=== PATIENT | female | born 1960 | race Caucasian/White ===

== ENCOUNTER 2023-08-20 08:38 | Outpatient (OUT) | payer MEDICARE, SELFPAY ==
[2023-08-20 09:42] LABS: Basophils Absolute Auto 0.1 10^3/uL (0.0-0.1); Basophils Percent Auto 0.9 % (0.2-2.0); Eosinophils Absolute Auto 0.2 10^3/uL (0.0-0.7); Eosinophils Percent Auto 2.4 % (0.9-7.0); Hematocrit 39.7 % (36.0-48.0); Hemoglobin 12.8 g/dL (12.0-16.0); Immature Granulocytes Abs Auto 0.02 10^3/uL (0.00-0.03); Immature Granulocytes Pct Auto 0.3 % (0.0-0.5); Lymphocytes Percent Auto 30.3 % (20.5-60.0); Mean Corpuscular HGB Conc 32.2 g/dL (29.9-35.2); Monocytes Absolute Auto 0.6 10^3/uL (0.3-0.8); Monocytes Percent Auto 9.1 % (1.7-12.0); Neutrophils Absolute Auto 3.8 10^3/uL (1.4-6.5); Platelet Count 428 10^3/uL (150-450); Red Blood Count 4.41 10^6/uL (4.20-5.40); Red Cell Distribution Width 13.1 % (11.0-15.0); White Blood Count 6.7 10^3/uL (4.0-11.0)
[2023-08-20 09:45] LABS: Bilirubin Urine NEGATIVE (NEGATIVE); Blood Urine TRACE-I (NEGATIVE); Clarity Urine CLEAR (CLEAR); Color Urine LT. YELLOW (YELLOW); Glucose Urine UA NEGATIVE (NEGATIVE); Ketones Urine NEGATIVE (NEGATIVE); Leukocyte Esterase Urine NEGATIVE (NEGATIVE); Nitrite Urine NEGATIVE (NEGATIVE); Protein Urine NEGATIVE (NEG/TRACE); Specific Gravity Urine 1.015 (1.005-1.025); Urobilinogen Urine 0.2 EU/dL (0.2-1.0); pH Urine 5.5 (5.0-9.0)
[2023-08-20 09:50] LABS: Erythrocyte Sedimentation Rate 54 mm/hr (<=30)
[2023-08-20 10:07] LABS: RBC Urine 0-2 #/HPF (0-2); WBC Urine NONE SEEN #/HPF (NONE SEEN)
[2023-08-20 10:08] LABS: Bacteria Urine TRACE #/HPF (NONE SEEN); Cast Seen? NONE SEEN #/LPF (NONE SEEN); Crystals Seen? None Seen #/HPF (None Seen); Mucus Urine NONE SEEN (NONE SEEN); Squamous Epithelial Cell Urine RARE #/LPF (NONE/RARE)
[2023-08-20 11:23] LABS: Estimated GFR (African America >60 (>=60); Estimated GFR (Non-African Ame >60 (>=60)
[2023-08-20 12:01] LABS: C Reactive Protein <0.50 mg/dL (<=0.50)
[2023-08-21 05:10] LABS: Complement C3, Serum 173 mg/dL (82-167); Complement C4, Serum 35 mg/dL (12-38)
[2023-08-23 14:10] LABS: Anti-dsDNA Antibodies <1 IU/mL (0-9)
== END 2023-08-20 08:39 | disposition home or self-care (01) ==
LOC: LAB 08:42
PROVIDERS: PCP Internal Medicine; Visit Provider Internal Medicine Rheumatology
DX: M35.9 Systemic involvement of connective tissue, unspecified (principal)
CPT/HCPCS: 36415; 81001; 82565; 85025; 85652; 86140; 86160

== ENCOUNTER 2024-02-17 08:56 | Outpatient (OUT) | payer MEDICARE, SELFPAY ==
[2024-02-17 09:17] LABS: Basophils Absolute Auto 0.1 10^3/uL (0.0-0.1); Basophils Percent Auto 0.8 % (0.2-2.0); Eosinophils Absolute Auto 0.2 10^3/uL (0.0-0.7); Eosinophils Percent Auto 2.7 % (0.9-7.0); Hematocrit 38.9 % (36.0-48.0); Hemoglobin 12.9 g/dL (12.0-16.0); Immature Granulocytes Abs Auto 0.03 10^3/uL (0.00-0.03); Immature Granulocytes Pct Auto 0.4 % (0.0-0.5); Lymphocytes Absolute Auto 1.7 10^3/uL (1.2-3.8); Lymphocytes Percent Auto 21.7 % (20.5-60.0); Mean Corpuscular HGB Conc 33.2 g/dL (29.9-35.2); Mean Corpuscular Volume 90.5 fL (81.0-99.0); Mean Platelet Volume 8.7 fL (9.5-13.5); Monocytes Absolute Auto 0.7 10^3/uL (0.3-0.8); Neutrophils Percent Auto 65.4 % (43.0-75.0); Platelet Count 376 10^3/uL (150-450); Red Cell Distribution Width 13.8 % (11.0-15.0); White Blood Count 7.7 10^3/uL (4.0-11.0)
[2024-02-17 09:30] LABS: Erythrocyte Sedimentation Rate 28 mm/hr (<=30)
[2024-02-17 10:52] LABS: Alanine Aminotransferase 35 U/L (14-59); Albumin Globulin Ratio 0.9; Albumin Level 3.6 g/dL (3.4-5.0); Alkaline Phosphatase 111 U/L (46-116); Anion Gap 12.7; Aspartate Amino Transferase 15 U/L (15-37); BUN Creatinine Ratio 31.9; Bilirubin Total 0.4 mg/dL (0.2-1.0); C Reactive Protein 0.51 mg/dL (<=0.50); Calcium 9.2 mg/dL (8.5-10.1); Carbon Dioxide 24.8 mmol/L (21.0-32.0); Chloride 103 mmol/L (98-107); Creatine Kinase 118 U/L (26-192); Estimated GFR (African America >60 (>=60); Estimated GFR (Non-African Ame >60 (>=60); Globulin 4.2 g/dL; Glucose 110 mg/dL (74-106); Potassium 4.5 mmol/L (3.5-5.1); Sodium 136 mmol/L (136-145); Total Protein 7.8 g/dL (6.4-8.2)
[2024-02-18 04:09] LABS: Complement C3, Serum 170 mg/dL (82-167); Complement C4, Serum 32 mg/dL (12-38)
== END 2024-02-17 08:57 | disposition home or self-care (01) ==
LOC: LAB 08:57
PROVIDERS: PCP Internal Medicine; Visit Provider Internal Medicine Rheumatology
DX: M25.50 Pain in unspecified joint (principal); R76.0 Raised antibody titer; R94.5 Abnormal results of liver function studies
CPT/HCPCS: 36415; 80053; 82550; 85025; 85652; 86140; 86160

== ENCOUNTER 2024-08-18 08:48 | Outpatient (OUT) | payer MEDICARE, SELFPAY ==
--- OUTSIDE RECORDS SUMMARY | 2024-08-18 09:13 | XMS_ITS | CCD ---
Author Organization [facility] CliniSymn Care Team Providers Care Animal Chiropractor Name Role Phone CHANTALE KELSEY Unavailable Unavailable HALADAVERO Aguirre Unavailable Unavailable CHANTALE KELSEY Unavailable Unavailable TAE HICKEY Unavailable Unavailable Valone, Nagi Owusu Unavailable Unavailabl e HALADATimothy, DR PHAM Admitting Unavailable HALADAY, DR PHAM Attending Unavailable VALONE, DR CARREON Primary Care Unavailable HALADAY, DR PHAM Consulting Unavailable HALADAY, DR PHAM Admitting Unavailable HALADAY, DR PHAM Attending Unavailable VALONE, DR CARREON Primary Care Unavailable HALADAY, DR PHAM Consulting Unavailable Nagi Acuña MD Primary Care Provider NAGI ACUÑA JR Referring Unavailable NAGI ACUÑA JR Primary Care Unavailable BOB, ESTHELA S Attending Unavailable BOB ESTHELA S Referring Unavailable VALONE JRNAGI Primary Care Unavailable AMPARO MENDOZA Attending Unavailable LUIS PHILLIPS Referring Unavailable NICHOLASELMER COYNE Attending Unavailable RUSHER, HANG S Referring Unavailable NICHOLASELMER COYNE Attending Unavailable RUSHER, HANG S Referring Unavailable RUSHER, HANG S Attending Unavailable RUSHER, HANG S Referring Unavailable RUSHER, HANG S Attending Unavailable HERNAN STALEY Attending Unavailable RUSHER, HANG S Referring Unavailable NICHOLASELMER COYNE Attending Unavailable RUSHER, HANG S Referring Unavailable PHILLIPSLUIS Attending Unavailable ELMER PETERSON Attending Unavailable RUSHER, HANG S Referring Unavailable RUSHER, HANG S Attending Unavailable Valone , Nagi SELLERS Primary Care Provider Allergies Allergy Classification Reported Allergen(s) Allergy Type Date of Onset Reaction(s) Facility (1 source) No Known Medication Allergies; Translations: [No Known Medication Allergies] Propensity to adverse reactions to drug (disorder) [facility] Repository Medications Current Medications Medication Drug Class(es) Dates Sig (Normalized) Sig (Original) ascorbic acid 500 mg oral tablet (1 source) Vitamin C take 1 tablet by mouth once daily ascorbic acid (VITAMIN C) 500 mg tablet Take 500 mg by mouth daily. Active Calcium Carbonate (1 source) take 1 tablet by mouth in the morning CALCIUM CARBONATE (CALTRATE 600 ORAL) Take 1 tablet by mouth in the morning. Active cholecalciferol 0.025 mg oral capsule (1 source) Vitamin D take 1 capsule by mouth in the morning cholecalciferol, vitamin D3, 25 mcg (1,000 unit) capsule Take 1 capsule (1,000 Units total) by mouth in the morning. Active efinaconazole 100 mg/ml topical solution (12 sources) Azole Antifungal End: 06-29-2024 Efinaconazole 10 % solution Apply topically. 06/29/2024 Discontinued fluocinonide 0.5 mg/ml topical solution (2 sources) Corticosteroid Start: 06-29-2024 fluocinonide (Lidex) 0.05 % external solution Indications: Other pruritus Apply to affected areas on the scalp, up to twice a day when flared, 30 day supply 60 mL 06/29/2024 Active Start: 06-29-2024 fluocinonide ( Lidex) 0.05 % external solution Indications: Other pruritus Apply to affected areas on the scalp, up to twice a day when flared, 30 day supply 60 mL 06/29/2024 Active hydroxychloroquine sulfate 200 mg oral tablet (13 sources) Antimalarial, Antirheumatic Agent Start: 06-03-2017 take 1 tablet by mouth in the morning hydroxychloroquine (PLAQUENIL) 200 mg tablet Take 1 tablet (200 mg total) by mouth in the morning. 06/03/2017 Active loratadine 10 mg oral tablet (13 sources) take 1 tablet by mouth in the morning loratadine (CLARITIN) 10 mg tablet Take 1 tablet (10 mg total) by mouth in the morning. Active meloxicam 15 mg oral tablet (9 sources) Nonsteroidal Anti-inflammatory Drug Start: 08-11-2023 End: 11-09-2023 take 1 tablet by mouth in the morning meloxicam (Mobic) 15 MG tablet Indications: Achilles tendinitis of left lower extremity Take 1 tablet (15 mg) by mouth in the morning. 90 tablet 0 08/11/2023 11/09/2023 Active methylPREDNISolone (12 sources) Corticosteroid Start: 08-11-2023 End: 06-29-2024 methylPREDNISolone (Medrol Dospak) 4 MG tablets Indications: Achilles tendinitis of left lower extremity Take as directed on package. 21 tablet 08/11/2023 06/29/2024 Discontinued Start: 08-11-2023 methylPREDNISo lone (Medrol Dospak) 4 MG tablets Indications: Achilles tendinitis of left lower extremity Take as directed on package. 21 tablet 08/11/2023 Active Start: 08-11-2023 methylPREDNISo lone (Medrol Dospak) 4 MG tablets Indications: Achilles tendinitis of left lower extremity Take as directed on package. 21 tablet 0 08/11/2023 Active 24 hr metoprolol succinate 50 mg extended release oral tablet (13 sources) beta-Adrenergic [facility]ish Start: 09-03-2017 take 1 tablet by mouth once daily in the morning, then take 1 tablet by mouth once daily at bedtime metoprolol succinate XL (TOPROL-XL) 50 mg 24 hr tablet TK 1 T PO D IN THE MORNING AND 1 T QHS 09/03/2017 Active metoprolol succi noy XL (Toprol XL) 50 MG 24 hr tablet 1 (one) time each day at the same time. Active Multiple Vitamins-Minerals ( MULTIVITAMIN ADULT, MINERALS, PO) (12 sources) Multiple Vitamin s-Minerals (MULTIVITAMIN ADULT, MINERALS, PO) Multivitamin Active Multiple Vitamin s-Minerals (MULTIVITAMIN ADULT, MINERALS, PO) Multivitamin 0 Active MULTIVIT 07-MKSHMMTR-UTP-CHR OM ORAL (1 source) take 2 tablets by mouth in the morning MULTIVIT 24-GWEGEULO-CNV-CHROM ORAL Take 2 tablets by mouth in the morning. Active Problems Active Problems Problem Classification Problem Date Documented Date Episodic/Chronic Cardiac dysrhythmias (12 sources) Irregular heart beat; Translations: [Cardiac arrhythmia, unspecified] Onset: 11-05-2017 01-13-2023 Chronic Immunizations and screening for infectious disease (4 sources) Raised antibody titer; Translations: [RAISED ANTIBODY TITER] Onset: 12-16-2022 Episodic Osteoarthritis (20 sources) Arthritis; Translations: [Unspecified osteoarthritis, unspecified site] Onset: 06-16-2018 01-13-2023 Chronic Other acquired deformities (2 sources) Equinus contracture of the ankle; Translations: [Contracture, left ankle] 09-22-2023 Chronic Other inflammatory condition of skin (2 sources) Itching of skin; Translations: [Other pruritus] 06-29-2024 Episodic Other liver diseases (1 source) Nonspecific elevation of levels of transaminase and lactic acid dehydrogenase [LDH]; Translations: [Nonspecific elevation of levels of transaminase and lactic acid dehydrogenase (ldh)] Onset: 11-05-2017 Episodic Other nervous system disorders (12 sources) Carpal tunnel syndrome of right wrist; Translations: [Carpal tunnel syndrome, right upper limb] Onset: 01-13-2023 01-13-2023 Chronic Other nervous system disorders (2 sources) Notalgia paresthetica; Translations: [Paresthesia of skin] 06-29-2024 Episodic Other non-traumatic joint disorders (12 sources) Derangement of left shoulder joint; Translations: [Other specific joint derangements of left shoulder, not elsewhere classified] Onset: 01-13-2023 01-13-2023 Chronic Other nutritional; endocrine; and metabolic disorders (12 sources) Obese class I; Translations: [Obesity, unspecified] Onset: 11-05-2017 01-13-2023 Chronic Other screening for suspected conditions (not mental disorders or infectious disease) (3 sources) Abnormal results of liver function studies; Translations: [Encounter for screening mammogram for malignant neoplasm of breast] Onset: 06-20-2022 08-07-2024 Episodic Other skin disorders (2 sources) Lentiginosis; Translations: [Other melanin hyperpigmentation] 06-29-2024 Episodic Other skin disorders (2 sources) Seborrheic keratosis; Translations: [Other seborrheic keratosis] 06-29-2024 Episodic Other skin disorders (2 sources) Hyperpigmentation of skin; Translations: [Other specified disorders of pigmentation] 06-29-2024 Episodic Residual codes; unclassified (1 source) Asymptomatic menopausal state; Translations: [Asymptomatic menopausal state] Onset: 03-15-2024 Episodic Systemic lupus erythematosus and connective tissue disorders (5 sources) Systemic involvement of connective tissue, unspecified; Translations: [SYSTEMIC INVLV CONNECTIVE TISS UNS] Onset: 06-15-2022 Chronic Past or Other Problems Problem Classification Problem Date Documented Date Episodic/Chronic Mood disorders (1 source) Mood disorders Onset: 07-05-2023 07-05-2023 Other connective tissue disease (17 sources) Left achilles tendonitis; Translations: [Achilles tendinitis, left leg] Onset: 09-08-2023 09-08-2023 Episodic Other non-traumatic joint disorders (13 sources) Pain in left shoulder; Translations: [Pain in joint, shoulder region] Onset: 01-14-2023 01-14-2023 Episodic Other non-traumatic joint disorders (13 sources) Stiffness of left shoulder; Translations: [Stiffness of left shoulder, not elsewhere classified] Onset: 01-14-2023 01-14-2023 Episodic Residual codes; unclassified (12 sources) History of abdominal hysterectomy; Translations: [Acquired absence of both cervix and uterus] Onset: 06-10-2017 01-13-2023 Episodic Residual codes; unclassified (13 sources) Postprocedural state finding; Translations: [Other specified postprocedural states] Onset: 01-14-2023 01-14-2023 Episodic Unclassified (1 source) Onset: 06-16-2018 06-16-2018 Results Test Name Value Interpretation Reference Range Facility DEXA SCAN CENTRAL SKELETALon 03-16-2024 DEXA SCAN CENTRAL SKELETAL DEXA SCAN CENTRAL SKELETAL DEXA SCAN CENTRAL SKELETAL: 03/15/2024 8:56 AM CLINICAL: Post menopausal. Exam/Technique: DEXA Scan (Dual Energy X-ray Absorptiometry) Findings: PA Lumbar Spine: BMD: 1.312 g/cm2. T-score: 0.9 Left Femoral neck: BMD 0.965 g/cm2. T-score: -0.5 Right Femoral neck: BMD 0.881 g/cm2. T-score: -1.1 Fracture Risk: According to FRAX, 10 year probability of any major osteoporosis-related fracture is 10.5%, 10 year probability of hip fracture is 1.0 % IMPRESSION: * Osteopenia nearly stable compared with 02/26/2014.. ____ PLEASE NOTE * T-score compares patient BMD to a reference of young normal controls. World Health Organization Classification: Osteoporosis: T-score=-2.5 or below. Osteopenia (low bone mass): T-score between -1.0 and -2.5. Normal: T-score -1.0 or above. Secondary causes of bone loss should be evaluated if clinically indicated since the etiology of low BMD cannot be determined by BMD measurement alone. The current national osteoporosis Foundation guide recommends treating patient's with FRAX10 year risk score of greater than or equal to 3% for hip fracture or greater than or equal to 20% for major osteoporotic fracture, to reduce their fracture risk. 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 Computer aided detection was utilized. FINDINGS: There are scattered areas of fibroglandular density. There are no suspicious masses, calcifications, or areas of architectural distortions. IMPRESSION: No mammographic evidence of malignancy. BI-RADS: BI-RADS 1 - Negative Recommendation: Routine screening mammogram in 1 year. Finalized by Pete Mike MD on 09/02/2023 10:34 AM 1 b MAMM 1 YR Normal [facility] C3 and C4 COMPLEMENTon 12-17 Complement C3, Serum 164 mg/dL Normal 82-167 [facility] Comment on above: Performed By: #### C SUITE #### [facility] [address] [address] [address] Anju Youssef Complement C4, Serum 36 mg/dL Normal 12-38 [facility] Comment on above: Performed By: #### C SUITE #### [facility] [address] [address] [address] Anju Youssef CBC AUTO DIFFon 12-16-2022 BASO # 0.1 103/ul Normal 0.0-0.1 [facility] Comment on above: Performed By: #### C BC #### [facility] [address] [place] [address] Dr. Anju Youssef Basophils/100 WBC (Bld) 0.9 % Normal 0.2-2.0 [facility] Comment on above: Performed By: #### C BC #### [facility] [address] [place] [address] Dr. Anju Youssef EO # 0.1 103/ul Normal 0.0-0.7 [facility] Comment on above: Performed By: #### C BC #### [facility] [address] [place] [address] Dr. Anju Youssef Eosinophils/100 WBC (Bld) 1.6 % Normal 0.9-7.0 [facility] Comment on above: Performed By: #### C BC #### [facility] [address] [place] [address] Dr. Anju Youssef Erythrocyte distribution width (RBC) [Ratio] 13.6 % Normal 11.0-15.0 [facility] Comment on above: Performed By: #### C BC #### [facility] [address] [place] [address] Dr. Anju Youssef Hematocrit (Bld) [Volume fraction] 45.2 % Normal 36.0-48.0 [facility] Comment on above: Performed By: #### C BC #### [facility] [address] [place] [address] Dr. Anju Youssef Hemoglobin (Bld) [Mass/Vol] 14.1 g/dL Normal 12.0-16.0 [facility] Comment on above: Performed By: #### C BC #### [facility] [address] [place] [address] Dr. Anju Youssef IG # 0.03 10e3/ul Normal 0.00-0.03 [facility] Comment on above: Performed By: #### C BC #### [facility] [address] [place] [address] Dr. Anju Youssef IG % 0.4 % Normal 0.0-0.5 [facility] Comment on above: Performed By: #### C BC #### [facility] [address] [place] [address] Dr. Anju Youssef LYMPH # 1.9 103/ul Normal 1.2-3.8 [facility] Comment on above: Performed By: #### C BC #### [facility] [address] [place] [address] Dr. Anju Youssef Lymphocytes/100 WBC (Bld) 24.4 % Normal 20.5-60.0 [facility] Comment on above: Performed By: #### C BC #### [facility] [address] [place] [address] Dr. Anju Youssef MANUAL DIFF REQ NO Normal [facility] Comment on above: Performed By: #### C BC #### [facility] [address] [place] [address] Dr. Anju Youssef MCH (RBC) [Entitic mass] 29.1 pg Normal 26.7-34.0 [facility] Comment on above: Performed By: #### C BC #### [facility] [address] [place] [address] Dr. Anju Youssef MCHC (RBC) [Mass/Vol] 31.2 g/dL Normal 29.9-35.2 [facility] Comment on above: Performed By: #### C BC #### [facility] [address] [place] [address] Dr. Anju Youssef MCV (RBC) [Entitic vol] 93.2 fL Normal 81.0-99.0 [facility] Comment on above: Performed By: #### C BC #### [facility] [address] [place] [address] Dr. Anju Youssef MONO # 0.7 103/ul Normal 0.3-0.8 [facility] Comment on above: Performed By: #### C BC #### [facility] [address] [place] [address] Dr. Anju Youssef Monocytes/100 WBC (Bld) 9.4 % Normal 1.7-12.0 [facility] Comment on above: Performed By: #### C BC #### [facility] [address] [place] [address] Dr. Anju Youssef NEUT # 5.0 103/ul Normal 1.4-6.5 [facility] Comment on above: Performed By: #### C BC #### [facility] [address] [place] [address] Dr. Anju Youssef Neutrophils/100 WBC (Bld) 63.3 % Normal 43.0-75.0 [facility] Comment on above: Performed By: #### C BC #### [facility] [address] [place] [address] Dr. Anju Youssef Platelet mean volume (Bld) [Entitic vol] 9.1 fL Critically low 9.5-13.5 [facility] Comment on above: Performed By: #### C BC #### [facility] [address] [place] [address] Dr. Anju Youssef PLT 340 103/ul Normal 150-450 [facility] Comment on above: Performed By: #### C BC #### [facility] [address] [place] [address] Dr. Anju Youssef RBC 4.85 106/ul Normal 4.20-5.40 [facility] Comment on above: Performed By: #### C BC #### [facility] [address] [place] [address] Dr. Anju Youssef WBC 7.9 103/ul Normal 4.0-11.0 [facility] Comment on above: Performed By: #### C BC #### [facility] [address] [place] [address] Dr. Anju Youssef CREATININEon 12-16-2022 Creatinine [Mass/Vol] 0.73 mg/dL Normal 0.55-1.02 [facility] Comment on above: Performed By: #### C NAKIA #### [facility] [address] [place] [address] Dr. Anju Youssef EGFR-AF ERITREAN >60 Normal >=60 [facility] Comment on above: Performed By: #### C NAKIA #### [facility] [address] [place] [address] Dr. Anju Youssef EGFR-NON AF ERITREAN >60 Normal >=60 [facility] Comment on above: Performed By: #### C NAKIA #### [facility] [address] [place] [address] Dr. Anju Youssef SED RATE WESTERGRENon 2022 SED RATE 40 mm/hr Critically high <=30 [facility] Comment on above: Performed By: #### S EDR #### [facility] [address] [place] [address] Dr. Anju Youssef UA RANDOM W/MICROSCOPICon BACTERIA NONE SEEN Normal NONE SEEN [facility] Comment on above: Performed By: #### U AMIC #### [facility] [address] [place] [address] Dr. Anju Youssef Bilirubin Ql (U) Negative Normal NEGATIVE [facility] Comment on above: Performed By: #### U AMIC #### [facility] [address] [place] [address] Dr. Anju Youssef CAST NONE SEEN Normal NONE SEEN [facility] Comment on above: Performed By: #### U AMIC #### [facility] [address] [place] [address] Dr. Anju Youssef Clarity (U) CLEAR Normal CLEAR [facility] Comment on above: Performed By: #### U AMIC #### [facility] [address] [place] [address] Dr. Anju Youssef Color (U) LT. YELLOW Normal YELLOW [facility] Comment on above: Performed By: #### U AMIC #### [facility] [address] [place] [address] Dr. Anju Youssef Crystals LM Nom (Urine sed) NONE SEEN Normal NONE SEEN [facility] Comment on above: Performed By: #### U AMIC #### [facility] [address] [place] [address] Dr. Anju Youssef Epithelial cells LM Ql (Urine sed) RARE Normal NONE SEEN /RARE [facility] Comment on above: Performed By: #### U AMIC #### [facility] [address] [address] [address] Anju Youssef Glucose Ql (U) Negative Normal NEGATIVE [facility] Comment on above: Performed By: #### U AMIC #### [facility] [address] [address] [address] Anju Youssef Hemoglobin Ql (U) TRACE-INTACT Abnormal NEGATIVE [facility] Comment on above: Performed By: #### U AMIC #### [facility] [address] [address] [address] Anju Youssef Ketones Ql (U) Negative Normal NEGATIVE [facility] Comment on above: Performed By: #### U AMIC #### [facility] [address] [place] [address] Dr. Anju Youssef LEUKOCYTES Negative Normal NEGATIVE [facility] Comment on above: Performed By: #### U AMIC #### [facility] [address] [place] [address] Dr. Anju Youssef MUCOUS NONE SEEN Normal NONE SEEN [facility] Comment on above: Performed By: #### U AMIC #### [facility] [address] [address] [address] Anju Youssef Nitrite Ql (U) Negative Normal NEGATIVE [facility] Comment on above: Performed By: #### U AMIC #### [facility] [address] [place] [address] Dr. Anju Youssef pH (U) 5.5 [pH] Normal 5-9 [facility] Comment on above: Performed By: #### U AMIC #### [facility] [address] [place] [address] Dr. Anju Youssef RBC 0-2 Normal 0-2 [facility] Comment on above: Performed By: #### U AMIC #### [facility] [address] [place] [address] Dr. Anju Youssef SPEC GRAVITY <=1.005 Abnormal 1.005-<=1. 025 [facility] Comment on above: Performed By: #### U AMIC #### [facility] [address] [place] [address] Dr. Anju Youssef UA PROTEIN Negative Normal NEGATIVE/ TRACE [facility] Comment on above: Performed By: #### U AMIC #### [facility] [address] [place] [address] Dr. Anju Youssef Urobilinogen Qn (U) 0.2 {Yun'U}/dL Normal 0.2 - 1.0 [facility] Comment on above: Performed By: #### U AMIC #### [facility] [address] [place] [address] Dr. Anju Youssef WBC 0-2 Abnormal NONE SEEN [facility] Comment on above: Performed By: #### U AMIC #### [facility] [address] [place] [address] Dr. Anju Youssef C3 and C4 COMPLEMENTon 06-16 Complement C3, Serum 175 mg/dL Critically high 82-167 [facility] Comment on above: Performed By: #### C SUITE #### [facility] [address] [place] [address] Dr. Anju Youssef Complement C4, Serum 40 mg/dL Critically high 12-38 [facility] Comment on above: Performed By: #### C SUITE #### [facility] [address] [place] [address] Dr. Anju Youssef CBC AUTO DIFFon 06-15-2022 BASO # 0.1 103/ul Normal 0.0-0.1 [facility] Comment on above: Performed By: #### C BC #### [facility] [address] [place] [address] Dr. Anju Youssef Basophils/100 WBC (Bld) 0.6 % Normal 0.2-2.0 [facility] Comment on above: Performed By: #### C BC #### [facility] [address] [place] [address] Dr. Anju Youssef EO # 0.1 103/ul Normal 0.0-0.7 [facility] Comment on above: Performed By: #### C BC #### [facility] [address] [place] [address] Dr. Anju Youssef Eosinophils/100 WBC (Bld) 1.3 % Normal 0.9-7.0 [facility] Comment on above: Performed By: #### C BC #### [facility] [address] [place] [address] Dr. Anju Youssef Erythrocyte distribution width (RBC) [Ratio] 14.1 % Normal 11.0-15.0 [facility] Comment on above: Performed By: #### C BC #### [facility] [address] [place] [address] Dr. Anju Youssef Hematocrit (Bld) [Volume fraction] 39.8 % Normal 36.0-48.0 [facility] Comment on above: Performed By: #### C BC #### [facility] [address] [place] [address] Dr. Anju Youssef Hemoglobin (Bld) [Mass/Vol] 12.8 g/dL Normal 12.0-16.0 [facility] Comment on above: Performed By: #### C BC #### [facility] [address] [place] [address] Dr. Anju Youssef IG # 0.03 10e3/ul Normal 0.00-0.03 [facility] Comment on above: Performed By: #### C BC #### [facility] [address] [place] [address] Dr. Anju Youssef IG % 0.3 % Normal 0.0-0.5 [facility] Comment on above: Performed By: #### C BC #### [facility] [address] [place] [address] Dr. Anju Youssef LYMPH # 2.2 103/ul Normal 1.2-3.8 [facility] Comment on above: Performed By: #### C BC #### [facility] [address] [place] [address] Dr. Anju Youssef Lymphocytes/100 WBC (Bld) 23.1 % Normal 20.5-60.0 [facility] Comment on above: Performed By: #### C BC #### [facility] [address] [place] [address] Dr. Anju Youssef MANUAL DIFF REQ NO Normal [facility] Comment on above: Performed By: #### C BC #### [facility] [address] [place] [address] Dr. Anju Youssef MCH (RBC) [Entitic mass] 28.7 pg Normal 26.7-34.0 [facility] Comment on above: Performed By: #### C BC #### [facility] [address] [place] [address] Dr. Anju Youssef MCHC (RBC) [Mass/Vol] 32.2 g/dL Normal 29.9-35.2 [facility] Comment on above: Performed By: #### C BC #### [facility] [address] [place] [address] Dr. Anju Youssef MCV (RBC) [Entitic vol] 89.2 fL Normal 81.0-99.0 [facility] Comment on above: Performed By: #### C BC #### [facility] [address] [place] [address] Dr. Anju Youssef MONO # 0.7 103/ul Normal 0.3-0.8 [facility] Comment on above: Performed By: #### C BC #### [facility] [address] [place] [address] Dr. Anju Youssef Monocytes/100 WBC (Bld) 7.9 % Normal 1.7-12.0 [facility] Comment on above: Performed By: #### C BC #### [facility] [address] [place] [address] Dr. Anju Youssef NEUT # 6.2 103/ul Normal 1.4-6.5 [facility] Comment on above: Performed By: #### C BC #### [facility] [address] [place] [address] Dr. Anju Youssef Neutrophils/100 WBC (Bld) 66.8 % Normal 43.0-75.0 [facility] Comment on above: Performed By: #### C BC #### [facility] [address] [place] [address] Dr. Anju Youssef Platelet mean volume (Bld) [Entitic vol] 8.9 fL Critically low 9.5-13.5 [facility] Comment on above: Performed By: #### C BC #### [facility] [address] [place] [address] Dr. Anju Youssef PLT 432 103/ul Normal 150-450 [facility] Comment on above: Performed By: #### C BC #### [facility] [address] [place] [address] Dr. Anju Youssef RBC 4.46 106/ul Normal 4.20-5.40 [facility] Comment on above: Performed By: #### C BC #### [facility] [address] [place] [address] Dr. Anju Youssef WBC 9.3 103/ul Normal 4.0-11.0 [facility] Comment on above: Performed By: #### C BC #### [facility] [address] [place] [address] Dr. Anju Youssef CREATININEon 06-15-2022 Creatinine [Mass/Vol] 0.68 mg/dL Normal 0.55-1.02 [facility] Comment on above: Performed By: #### MIYA PEACE #### [facility] [address] [place] [address] Dr. Anju Youssef EGFR-AF ERITREAN >60 Normal >=60 [facility] Comment on above: Performed By: #### MIYA PEACE #### [facility] [address] [place] [address] Dr. Anju Youssef EGFR-NON AF ERITREAN >60 Normal >=60 [facility] Comment on above: Performed By: #### MIYA PEACE #### [facility] [address] [place] [address] Dr. Anju Youssef LIVER PROFILEon 06-15-2022 Albumin [Mass/Vol] 3.8 g/dL Normal 3.4-5.0 [facility] Comment on above: Performed By: #### MIYA PEACE #### [facility] [address] [place] [address] Dr. Anju Youssef Albumin/Globulin [Mass ratio] 0.9 {ratio} Normal [facility] Comment on above: Performed By: #### L IVISABELLE, CREA #### [facility] [address] [place] [address] Dr. Anju Youssef ALP [Catalytic activity/Vol] 117 U/L Critically high 46-116 [facility] Comment on above: Performed By: #### L IVISABELLE, CREA #### [facility] [address] [place] [address] Dr. Anju Youssef ALT [Catalytic activity/Vol] 34 U/L Normal 14-59 [facility] Comment on above: Performed By: #### L IVISABELLE, CREA #### [facility] [address] [place] [address] Dr. Anju Youssef AST [Catalytic activity/Vol] 17 U/L Normal 15-37 [facility] Comment on above: Performed By: #### L SAGAR CREA #### [facility] [address] [place] [address] Dr. Anju Youssef BILI, CONJUGATED 0.1 mg/dL Normal 0.0-0.2 [facility] Comment on above: Performed By: #### L SAGAR CREA #### [facility] [address] [place] [address] Dr. Anju Youssef Bilirubin [Mass/Vol] 0.3 mg/dL Normal 0.2-1.0 [facility] Comment on above: Performed By: #### L SAGAR CREA #### [facility] [address] [place] [address] Dr. Ajnu Youssef Globulin (S) [Mass/Vol] 4.4 g/dL Normal [facility] Comment on above: Performed By: #### L SAGAR, CREA #### [facility] [address] [place] [address] Dr. Anju Youssef Protein [Mass/Vol] 8.2 g/dL Normal 6.4-8.2 [facility] Comment on above: Performed By: #### L SAGAR, CREA #### [facility] [address] [place] [address] Dr. Anju Youssef [facility] 2021 SED RATE 48 mm/hr Critically high <=30 [facility] Comment on above: Performed By: #### L MIYA KEITH #### [facility] [address] [place] [address] Dr. Anju Youssef UA RANDOM W/MICROSCOPICon BACTERIA TRACE Abnormal NONE SEEN [facility] Comment on above: Performed By: #### U AMIC #### [facility] [address] [place] [address] Dr. Anju Youssef Bilirubin Ql (U) Negative Normal NEGATIVE [facility] Comment on above: Performed By: #### U AMIC #### [facility] [address] [place] [address] Dr. Anju Youssef CAST NONE SEEN Normal NONE SEEN [facility] Comment on above: Performed By: #### U AMIC #### [facility] [address] [place] [address] Dr. Anju Youssef Clarity (U) CLEAR Normal CLEAR [facility] Comment on above: Performed By: #### U AMIC #### [facility] [address] [place] [address] Dr. Anju Youssef Color (U) LT. YELLOW Normal YELLOW [facility] Comment on above: Performed By: #### U AMIC #### [facility] [address] [place] [address] Dr. Anju Youssef Crystals LM Nom (Urine sed) NONE SEEN Normal NONE SEEN [facility] Comment on above: Performed By: #### U AMIC #### [facility] [address] [place] [address] Dr. Anju Yousesf Epithelial cells LM Ql (Urine sed) RARE Normal NONE SEEN /RARE [facility] Comment on above: Performed By: #### U AMIC #### [facility] [address] [place] [address] Dr. Anju Youssef Glucose Ql (U) Negative Normal NEGATIVE [facility] Comment on above: Performed By: #### U AMIC #### [facility] [address] [place] [address] Dr. Anju Youssef Hemoglobin Ql (U) TRACE-LYSED Abnormal NEGATIVE [facility] Comment on above: Performed By: #### U AMIC #### [facility] [address] [place] [address] Dr. Anju Youssef Ketones Ql (U) Negative Normal NEGATIVE [facility] Comment on above: Performed By: #### U AMIC #### [facility] [address] [place] [address] Dr. Anju Youssef LEUKOCYTES Negative Normal NEGATIVE [facility] Comment on above: Performed By: #### U AMIC #### [facility] [address] [place] [address] Dr. Anju Youssef MUCOUS NONE SEEN Normal NONE SEEN [facility] Comment on above: Performed By: #### U AMIC #### [facility] [address] [place] [address] Dr. Anju Youssef Nitrite Ql (U) Negative Normal NEGATIVE [facility] Comment on above: Performed By: #### U AMIC #### [facility] [address] [place] [address] Dr. Anju Youssef pH (U) 5.5 [pH] Normal 5-9 [facility] Comment on above: Performed By: #### U AMIC #### [facility] [address] [place] [address] Dr. Anju Youssef RBC 0-2 Normal 0-2 [facility] Comment on above: Performed By: #### U AMIC #### [facility] [address] [place] [address] Dr. Anju Youssef SPEC GRAVITY 1.020 Normal 1.005-<=1. 025 [facility] Comment on above: Performed By: #### U AMIC #### [facility] [address] [place] [address] Dr. Anju Youssef UA PROTEIN Negative Normal NEGATIVE/ TRACE [facility] Comment on above: Performed By: #### U AMIC #### [facility] [address] [place] [address] Dr. Anju Youssef Urobilinogen Qn (U) 0.2 {Yun'U}/dL Normal 0.2 - 1.0 [facility] Comment on above: Performed By: #### U AMIC #### [facility] [address] [place], [place] [address] Dr. Anju Youssef WBC 0-2 Abnormal NONE SEEN [facility] Comment on above: Performed By: #### U AMIC #### [facility] [address] [place], [place] [address] Dr. Anju Youssef Otolaryngology Consultationo n 07-15-2018 Otolaryngology Consultation Chief Complaint Patient states I am here for dizziness as a results from ear and sinus infection History of Present Illness Is a pleasant 58-year-old woman known well to me last seen approximately 8 years ago with sudden onset of vertigo. Her V NG reported and 80% left ear weakness. We sent her to vestibular rehabilitation and after 3 months she was able to return to work. She has had no problems until about a few weeks ago when she developed an upper respiratory infection she had a small episode of vertigo which resolved only to recur a snare so later at work. She was vertiginous for 3 days. The vertigo has now resolved for the last 2 days though she still has a generalized mild feeling of imbalance. There has been no associated hearing lossReview of Systems General Adult ROS Fatigue: No Weakness: No Cardiovascular Chest pain/pressure: No EENMT Ear pain: No Facial pain: No Hearing loss: No Hoarseness: No Nasal congestion: Yes Nosebleeds: No Other EENMT: Yes Sore_throat: No Tinnitus: Yes Gastrointestinal Diarrhea: No Heartburn: No Genitourinary Hematologic/Lymphatic Bruising: No Musculoskeletal Back pain: No Joint pain: Yes Neurological Headache: Yes Psychiatric Anxiety: No Depression: No Respiratory Cough: No Shortness_of_breath: No Skin Itching: No Lesion/change in moles: No Rash: NoPhysical Exam Vitals & Measurements BP: 150/89 WT: 84 kg General: [Alert and oriented, well nourished, no acute distress]. Eye: [PERRL, EOMI, normal conjunctiva]. No nice to Jessica noted. HENT: [Normocephalic, clear tympanic membranes, normal hearing Nose: Septal deformity without purulence or stasis. Oral cavity good dental repair with moist mucosa. Oropharynx is unremarkable without drainage. Neck: [Supple, non-tender, no lymphadenopathy]. Lungs: [Clear to auscultation and percussion, non-labored respiration]. Heart: [Normal rate, regular rhythm, no murmur, gallop or edema]. Skin: [Skin is warm, dry and pink, no rashes or lesions]. Neurologic: [Awake, alert, and oriented X3, CN II-XII intact]. Psychiatric: [Cooperative, appropriate mood and affect]. Additional Vitals Body Mass Index Measured: 30.12 kg/m2 BP Position/Location: Sitting, Right arm Peripheral Pulse Rate: 85 bpmAssessment/Plan 1. Dizziness 2. 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 She has been able to adapt to this hypofunctional labyrinth after 3 months of physical therapy 8 years ago. Since she only has mild symptoms now and seems to be doing well I'm inclined to recommend that she return to work on Wednesday. Should her symptoms recur in she has difficulty she will call and we will schedule her to return for more physical therapy.Problem List/Past Medical History Ongoing Arthritis Irregular heart beat Historical No qualifying dataProcedure/Surgical History D&C, foot, Rt, shoulder.Medications Home hydroxychloroquine 200 mg oral tablet, 200 mg, 1 tabs, Oral, BID metoprolol succinate 50 mg oral capsule, extended release, 50 mg, 1 caps, Oral, Daily Inpatient No active inpatient medications Prescriptions No active PrescriptionsAllergies No Known Medication AllergiesSocial History Tobacco Never (less than 100 in lifetime) Use:.Family History Diabetes mellitus: Mother, Father and Sibling.Lab Results Microbiology No qualifying data available.Electronically signed by Tae Hickey MD 07/15/18 10:44 EST Normal [facility] ANAon 11-05-2017 SELVIN by EIA 2.3 OD Ratio Normal [facility] Comment on above: Result Comment: OD R atio is interpreted as follows:Negative <1.0Positive >=1.0 Performed By: #### A AT, HFP, CERULO, SMOOTH, ROMULO, ANAS ####[facility] [place], [place] [phone] SELVIN by EIA, Qual Positive Critically abnormal Negative [facility] Comment on above: Result Comment: Resu lts are to be used as an aid to diagnosis. Confirmation testing for specific antibodies should be run if a positive assay is obtained. A positive result suggests certain diseases and should be confirmed by clinical findings. Performed By: #### A AT, HFP, CERULO, SMOOTH, ROMULO, ANAS ####[facility] [place], [place] [phone] Alpha 1 antitrypsinon 2017 Alpha 1 antitrypsin 141 mg/dL Normal 90-200 [facility] Comment on above: Performed By: #### A AT, HFP, CERULO, SMOOTH, ROMULO, ANAS ####[facility] [place], [place] [phone] CNOVon 11-05-2017 CNOV Office Visit (GASTA5) TRENT RIDDLE ([id number]) [address] [facility] Provider Department11/05/17 2:00 PM CHANTALE KELSEY GASTA5 During your visit today, we recorded the following information about you: Temperature Pulse Blood pressure Weight 98 degrees 84/minute 144/79 86.2 kg Height 1.676 mMpushpa Kelsey MD PhD 11/07/2017 10:42 AM SignedPatient is a 57 year old female who was referred byNagi Acuña , [id number] [phone] - [phone] - faxfor evaluation and treatment of an elevated ALT. A copy of this visit will besent to the referring physician via the shared medical record. I havepersonally interviewed and examined this patient.Patient reports that she has rheumatoid arthritis of the hands. 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 Shehas started Plaquenil.She has had iron deficiency in the past - had heavy menses. Was refused as ablood donor because of this. Since then has had a hysterectomy. Iron nownormal. No family history of liver or lung disease. Has an irregular heart beat- taking metoprolol. Was checked for celiac disease - negative. Her SELVIN iselevated. Her weight is stable around 180#.No interval hx of nausea, vomiting, abdominal pain, fever, chills, weight loss,night sweats, hospitalization, jaundice, gastrointestinal bleeding, increase inabdominal girth, lower extremity edema, or change in mental status.ROS:General: no weight loss or feversHEENT: no vision change, no headaches, no neck stiffness, no new lumps or bumpsThyroid: no goiterChest: no shortness of breath, wheezing or coughCVS: no chest pain or palpitationsGI: as per HPIExtremities: no swellingNeuro: no focal numbness, weakness or tinglingALLERGIESAllergies no known allergiesCurrent Outpatient Prescriptions:sulfamethoxazole- trimethoprim (BACTRIM DS,SEPTRA DS) 800-160 mg per tablet TK 1T PO BIDmethylPREDNISolone (MEDROL DOSE-PACK) 4 mg Dose-Pack TK UTDmetoprolol succinate ER (TOPROL XL) 50 mg 24 hr tablet TK 1 T PO D IN THEMORNING AND 1 T QHScephALEXin (KEFLEX) 500 mg capsule TK 1 C PO TIDHYDROcodone-acetaminophen (NORCO) 5-325 mg per tablethydroxychloroquine (PLAQUENIL) 200 mg tablet TK 1 T PO BID WITH FOODCholecalciferol, Vitamin D3, 1,000 unit cap Take 1,000 Units by mouth.ascorbic acid, vitamin C, (VITAMIN C) 500 mg tablet Take 500 mg by mouth.loratadine (CLARITIN) 10 mg tablet Take 10 mg by mouth.azithromycin (ZITHROMAX) 250 mg tablet Take 1 tablet by mouth.No current facility-administered medications for this visit.PSHs/p C section x 4s/p T/ls/p TAHs/p left shoulder - surgery to remove bone spurPMHHypertensionRheumatoid arthritis both handsSocial History Marital status: Spouse name: Years of education: Number of children:Social History Main TopicsFAM:no colon cancerno liver diseaseno Crohn's diseaseno ulcerative colitismother- father - brother - diabetesVSBP 144/79 Pulse 84 Temp 98 Ht 5' 6ANDquot; (1.68m) Wt 190 lb (86.2kg) SpO2 98% BMI 30.68 kg/(m2).GEN: Pleasant, cooperative, NAD.HEENT: NCAT, no mass or lesion, sclera anicteric.NECK: normal JVD, no bruits, trachea midline.CHEST: CTA bilaterally, no wheeze or rhonchi, no CVA tenderness.CV: RRR, normal S1, S2, no rubs, murmurs or gallops.ABD: positive bowel sounds, obese, unable to appreciate organomegaly, notenderness to palpation or percussion.EXT: no edema LLE, RLE in boot, first MC joint both hands swollen and slightlyerythematousNEURO: A and O x 3, no asterixis.SKIN: no palmar erythema, no spider angiomata.LABSComponent Latest Ref Rng ANDamp; Units 11/05/2017Albumin 3.9 - 4.9 g/dL 4.4Bilirubin, Total 0.2 - 1.3 mg/dL 0.3Bilirubin, Conjug ANDlt;0.2 mg/dL ANDlt;0.2Alkaline Phosphatase 32 - 117 U/L 102AST 13 - 35 U/L 29ALT 7 - 38 U/L 39 (H)Protein, Total 6.3 - 8.0 g/dL 8.1 (H)Alpha 1 Antitrypsin 90 - 200 mg/dL 141Ceruloplasmin 16 - 45 mg/dL 31IMAGINGRUQ [id number] yo female with mildly elevated ALT. Has mildly elevated triglycerides andmildly decreased HDL. BM is 30. These are 4/5 risk factors for fatty liver.PLAN:1. Recommend Nature Bounty fish oil 2400mg/1200mg omega 3 - take one a day -recheck TRIG in 3 months.2. Blood work today to check for other common liver conditions. Positive SMAcan be sen ein fatty liver however.3. Will send results by mail.Chantale Kelsey MD PhDReferring Provider: VERO WEAVER [[id number]]Allergies As of Date: 11/05/2017(No Known Allergies)Date Reviewed: Never ReviewedReason for Visit: Consult [173] Cmt: follow upPrimary Visit Diagnosis:Elevated transaminase level [R74.0] Other Visit Diagnoses:S/P tubal ligation [Z98.51] S/P TEZ (total abdominal hysterectomy) [Z90.710] H/O section [Z98.891] Comment:4 C section Obesity (BMI 30.0-34.9) [E66.9] Irregular heart beat [I49.9] Comment:takes metoprololOrder(s):SMOOTH MUSCLE AB PNL SCRN [SQSMOOTH] Order #: [id number] FUTURE MITOCHONDRIAL AB PNL SCRN [SQMITO] Order #: [id number] FUTURE XCIGY-5-LGBGWWUGS BL [SQAAT] Order #: [id number] FUTURE SELVIN BLOOD [SQANAS] Order #: [id number] FUTURE CERULOPLASMIN BLD [SQCERULO] Order #: [id number] FUTURE HEPATIC FUNCTION PNL [SQHFP] Order #: [id number] FUTURE HEP REMOTE PANEL BL [SQHREMOP] Order #: [id number] FUTURE US ABD RT UPPER QUADRANT [3608795] Order #: [id number] FUTUREPrescriptions as of 11/05/2017 Sig: SULFAMETHOXAZOLE 800 MG-TRIME* TK 1 T PO BID METHYLPREDNISOLONE 4 MG TABLE* TK UTD METOPROLOL SUCCINATE ER 50 MG* TK 1 T PO D IN THE MORNING AN* CEPHALEXIN 500 MG CAPSULE TK 1 C PO TID HYDROCODONE 5 MG-ACETAMINOPHE* HYDROXYCHLOROQUINE 200 MG TAB* TK 1 T PO BID WITH FOOD CHOLECALCIFEROL (VITAMIN D3) * Take 1,000 Units by mouth. ASCORBIC ACID (VITAMIN C) 500* Take 500 mg by mouth. LORATADINE 10 MG TABLET Take 10 mg by mouth. AZITHROMYCIN 250 MG TABLET Take 1 tablet by mouth.Medication notes this encounter SULFAMETHOXAZOLE 800 MG-TRIMETHOPRIM 160 MG TABLET >> Mitchel Kilgore MA 11/05/2017 1:31 PM >> [facility] WedNov 05, 2017 1:31 PM Received from: External Pharmacy METHYLPREDNISOLONE 4 MG TABLETS IN A DOSE PACK >> Mitcheldaniel Kilgore MA 11/05/2017 1:31 PM >> [facility] WedNov 05, 2017 1:31 PM Received from: External Pharmacy METOPROLOL SUCCINATE ER 50 MG TABLET,EXTENDED RELEASE 24 HR >> Mitcheldaniel Kilgore MA 11/05/2017 1:31 PM >> [facility] WedNov 05, 2017 1:31 PM Received from: External Pharmacy CEPHALEXIN 500 MG CAPSULE >> Mitchel Kilgore MA 11/05/2017 1:31 PM >> [facility] WedNov 05, 2017 1:31 PM Received from: External Pharmacy HYDROCODONE 5 MG-ACETAMINOPHEN 325 MG TABLET >> Mitchel Kilgore MA 11/05/2017 1:31 PM >> [facility] WedNov 05, 2017 1:31 PM Received from: External Pharmacy HYDROXYCHLOROQUINE 200 MG TABLET >> Mitchel Kilgore MA 11/05/2017 1:31 PM >> [facility] WedNov 05, 2017 1:31 PM Received from: External Pharmacy CHOLECALCIFEROL (VITAMIN D3) 1,000 UNIT CAPSULE >> Mitchelaraceli Kilgore MA 11/05/2017 1:31 PM >> [facility] WedNov 05, 2017 1:31 PM Received from: [employer] [facility] Received Sig: Take 1,000 Units bymouth daily. ASCORBIC ACID (VITAMIN C) 500 MG TABLET >> Mitchel Kilgore MA 11/05/2017 1:31 PM >> [facility] WedNov 05, 2017 1:31 PM Received from: [employer] [facility] Received Sig: Take 500 mg by mouthdaily. LORATADINE 10 MG TABLET >> Mitchel Kilgore MA 11/05/2017 1:31 PM >> [facility] WedNov 05, 2017 1:31 PM Received from: [employer] [facility] Received Sig: Take 10 mg by mouthdaily. AZITHROMYCIN 250 MG TABLET >> Mitchel Kilgore MA 11/05/2017 1:31 PM >> MITCHEL KILGORE MA Nov 05, 2017 1:31 PM Received from: [employer] Received Sig: Take 1 tablet by mouthdaily.Problem List As Of Date 11/05/2017 Noted Resolved S/P tubal ligation [Z98.51] INVALID FOR* S/P TEZ (total abdominal hysterectomy) [Z90.710]INVALID FOR* H/O section [Z98.891] INVALID FOR* Obesity (BMI 30.0-34.9) [E66.9] INVALID FOR* Irregular heart beat [I49.9] INVALID FOR*Follow-up and Disposition History RecordedEncounter Number: [id number] Status:Closed by KISHOR PLAZA, CHANTALE PHD on 11/07/17 Normal [facility] Ceruloplasminon 11-05-2017 Ceruloplasmin 31 mg/dL Normal 16-45 [facility] Comment on above: Performed By: #### A AT, HFP, CERULO, SMOOTH, ROMULO, ANAS ####[facility] [place] [address] [phone] Hepatic Functn Panelon 11-05 Alanine aminotransferase (ALT) 39 U/L High 7-38 [facility] Comment on above: Performed By: #### A AT, HFP, CERULO, SMOOTH, ROMULO, ANAS ####[facility] [address] [place], [place] [phone] Albumin 4.4 g/dL Normal 3.9-4.9 [facility] Comment on above: Performed By: #### A AT, HFP, CERULO, SMOOTH, ROMULO, ANAS ####[facility] [place], [place] [phone] Alkaline phosphatase (ALP) 102 U/L Normal 32-117 [facility] Comment on above: Performed By: #### A AT, HFP, CERULO, SMOOTH, ROMULO, ANAS ####[facility], [place] [phone] Aspartate aminotransferase (AST) 29 U/L Normal 13-35 [facility] Comment on above: Performed By: #### A AT, HFP, CERULO, SMOOTH, ROMULO, ANAS ####[facility], [place] [phone] Bilirubin (total) 0.3 mg/dL Normal 0.2-1.3 [facility] Comment on above: Performed By: #### A AT, HFP, CERULO, SMOOTH, ROMULO, ANAS ####[place] [address], [place] [phone] Bilirubin,Conjugat ed <0.2 Normal <0.2 [facility] Comment on above: Performed By: #### A AT, HFP, CERULO, SMOOTH, ROMULO, ANAS ####[facility], [place] [phone] Protein 8.1 g/dL High 6.3-8.0 [facility] Comment on above: Performed By: #### A AT, HFP, CERULO, SMOOTH, ROMULO, ANAS ####[place] [id number], [place] [phone] Mitochondrial Ab Pnlon 11-05 Mitochondrial Ab Pnl Negative Normal Negative [facility] Comment on above: Result Comment: Norm al range : negative at a 1:20 serum dilution.Corrected on 11/08 AT 1308: Previously reported as ELIZABETH Normal range : negative at a 1:20 serum dilution. Performed By: #### A AT, HFP, CERULO, SMOOTH, ROMULO, ANAS ####[place] [address] [place], [place] [phone] PROGRESSon 11-05-2017 PROGRESS HNO ID: [id number] thor: Chantale AsencioerSmarjorie: (none)Author Type: PhysicianType: Progress NotesFiled: 11/07/2017 10:42 AMNote Text:Patient is a 57 year old female who was referred byNagi Acuña Jr, [id number] [facility] [phone] - faxfor evaluation and treatment of an elevated ALT. A copy of this visit willbe sent to the referring physician via the shared medical record. I havepersonally interviewed and examined this patient.Patient reports that she has rheumatoid arthritis of the hands. 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 She has started Plaquenil.She has had iron deficiency in the past - had heavy menses. Was refused asa blood donor because of this. Since then has had a hysterectomy. Iron nownormal. No family history of liver or lung disease. Has an irregular heartbeat - taking metoprolol. Was checked for celiac disease - negative. HerANA is elevated. Her weight is stable around 180#.No interval hx of nausea, vomiting, abdominal pain, fever, chills, weightloss, night sweats, hospitalization, jaundice, gastrointestinal bleeding,increase in abdominal girth, lower extremity edema, or change in mentalstatus.ROS:General: no weight loss or feversHEENT: no vision change, no headaches, no neck stiffness, no new lumps orbumpsThyroid: no goiterChest: no shortness of breath, wheezing or coughCVS: no chest pain or palpitationsGI: as per HPIExtremities: no swellingNeuro: no focal numbness, weakness or tinglingALLERGIESAllergies no known allergiesCurrent Outpatient Prescriptions:sulfamethoxazole- trimethoprim (BACTRIM DS,SEPTRA DS) 800-160 mg per tabletTK 1 T PO BIDmethylPREDNISolone (MEDROL DOSE-PACK) 4 mg Dose-Pack TK UTDmetoprolol succinate ER (TOPROL XL) 50 mg 24 hr tablet TK 1 T PO D IN THEMORNING AND 1 T QHScephALEXin (KEFLEX) 500 mg capsule TK 1 C PO TIDHYDROcodone-acetaminophen (NORCO) 5-325 mg per tablethydroxychloroquine (PLAQUENIL) 200 mg tablet TK 1 T PO BID WITH FOODCholecalciferol, Vitamin D3, 1,000 unit cap Take 1,000 Units by mouth.ascorbic acid, vitamin C, (VITAMIN C) 500 mg tablet Take 500 mg by mouth.loratadine (CLARITIN) 10 mg tablet Take 10 mg by mouth.azithromycin (ZITHROMAX) 250 mg tablet Take 1 tablet by mouth.No current facility-administered medications for this visit.PSHs/p C section x 4s/p T/ls/p TAHs/p left shoulder - surgery to remove bone spurPMHHypertensionRheumatoid arthritis both handsSocial History Marital status: Spouse name: Years of education: Number of children:Social History Main TopicsFAM:no colon cancerno liver diseaseno Crohn's diseaseno ulcerative colitismother- father - brother - diabetesVSBP 144/79 Pulse 84 Temp 98 Ht 5' 6 (1.68m) Wt 190 lb (86.2kg) SpO2 98% BMI 30.68 kg/(m2).GEN: Pleasant, cooperative, NAD.HEENT: NCAT, no mass or lesion, sclera anicteric.NECK: normal JVD, no bruits, trachea midline.CHEST: CTA bilaterally, no wheeze or rhonchi, no CVA tenderness.CV: RRR, normal S1, S2, no rubs, murmurs or gallops.ABD: positive bowel sounds, obese, unable to appreciate organomegaly, notenderness to palpation or percussion.EXT: no edema LLE, RLE in boot, first MC joint both hands swollen andslightly erythematousNEURO: A and O x 3, no asterixis.SKIN: no palmar erythema, no spider angiomata.LABSComponent Latest Ref Rng AND Units 11/05/2017Albumin 3.9 - 4.9 g/dL 4.4Bilirubin, Total 0.2 - 1.3 mg/dL 0.3Bilirubin, Conjug <0.2 mg/dL <0.2Alkaline Phosphatase 32 - 117 U/L 102AST 13 - 35 U/L 29ALT 7 - 38 U/L 39 (H)Protein, Total 6.3 - 8.0 g/dL 8.1 (H)Alpha 1 Antitrypsin 90 - 200 mg/dL 141Ceruloplasmin 16 - 45 mg/dL 31IMAGINGRUQ [id number] yo female with mildly elevated ALT. Has mildly elevated triglyceridesand mildly decreased HDL. BM is 30. These are 4/5 risk factors for fattyliver.PLAN:1. Recommend Nature Bounty fish oil 2400mg/1200mg omega 3 - take one aday - recheck TRIG in 3 months.2. Blood work today to check for other common liver conditions. PositiveSMA can be sen ein fatty liver however.3. Will send results by mail.Chantale Kelsey MD PhD Normal [facility] Smooth Muscle Ab Pnlon 11-05 Smooth Muscle Ab Pnl Negative Normal Negative [facility] Comment on above: Result Comment: Norm al range : negative at a 1:20 serum dilution. Performed By: #### A AT, HFP, CERULO, SMOOTH, ROMULO, ANAS ####[facility] [id number] [place], [place] [phone] Vital Signs Date Time Vital Sign Value Performing Clinician Faci lity 09-22-2023 08:58-0500 Body height 167.6 cm Hang Garcia DPM Work Phone: [facility] 09-22-2023 08:58-0500 Body mass index (BMI) [Ratio] 29.05 kg/m2 Hang Garcia DPM Work Phone: [facility] 09-22-2023 08:58-0500 Body weight 81.65 kg Hang Garcia DPM Work Phone: [facility] Encounters Encounter Date Encounter Type Care Provider Facility Start: 08-07-2024 End: 08-07-2024 Telephone encounter Ronna Lauren ADMITTING MANAGER-DIRECTOR RECREATION CENTER Work Phone: [facility] Start: 06-29-2024 End: 06-29-2024 Bamboo flowsheet Amparo Mendoza MD Work Phone: [facility] Start: 06-29-2024 End: 06-29-2024 Bamboo flowstova Mendoza MD Work Phone: [facility] Start: 06-29-2024 End: 06-29-2024 ambulatory AMPARO MENDOZA Not Available Start: 06-29-2024 End: 06-29-2024 Office outpatient visit 25 minutes Amparo Mendoza MD Work Phone: [facility] Comment on above: Seborrheic keratosis (Primary Dx); Other pruritus; Notalgia paresthetica; Lentigines; Hyperpigmentation due to hydroxychloroquine therapy Start: 03-15-2024 End: 03-15-2024 ambulatory NAGI ACUÑA JR [facility] Start: 10-04-2023 End: 10-04-2023 ambulatory LUIS PHILLIPS Not Available Start: 09-22-2023 Bamboo flowsheet Hang Ramos her DPM Work Phone: [facility] Start: 09-22-2023 Bamboo flowsheet Hang Ramos her DPM Work Phone: [facility] Start: 09-22-2023 End: 09-22-2023 Office outpatient visit 15 minutes Hang Garcia DPM Work Phone: [facility] Comment on above: Achilles tendinitis of left lower extremity (Primary Dx); Equinus contracture of left ankle Start: 09-22-2023 End: 09-22-2023 ambulatory HANG GARCIA Not Available Start: 09-20-2023 Bamboo flowsheet Hernan Padillaig ht GROUP ROOMS COORDINATOR Work Phone: [facility] Start: 09-20-2023 Bamboo flowsheet Hernan Valerieig ht GROUP ROOMS COORDINATOR Work Phone: [facility] Start: 09-20-2023 End: 09-20-2023 ambulatory HERNAN STALEY Not Available Start: 09-17-2023 End: 09-17-2023 ambulatory Elmer Peterson PT Work Phone: [facility] Comment on above: Achilles tendinitis of left lower extremity (Primary Dx); Left shoulder pain, unspecified chronicity; Shoulder stiffness, left; Other specified postprocedural states Start: 09-13-2023 Chart abstracting Elmer coyne PT Work Phone: [facility] Start: 09-13-2023 End: 09-13-2023 ambulatory Elmer Peterson PT Work Phone: [facility] Comment on above: Achilles tendinitis of left lower extremity (Primary Dx) Start: 09-10-2023 Chart abstracting Elmer De Los Santos gs PT Work Phone: [facility] Start: 09-10-2023 End: 09-10-2023 ambulatory Elmer Peterson PT Work Phone: [facility] Comment on above: Achilles tendinitis of left lower extremity (Primary Dx) Start: 09-08-2023 End: 09-08-2023 ambulatory ELMER PETERSON Not Available Start: 09-02-2023 End: 09-02-2023 ambulatory [facility] Start: 08-11-2023 End: 08-11-2023 ambulatory HANG GARCIA Not Available Start: 07-05-2023 End: 07-05-2023 ambulatory HANG GARCIA Not Available Start: 12-16-2022 End: 12-17-[address] VERO WEAVER Facility:[facility] Start: 06-15-2022 End: 06-16-[address] VERO WEAVER Facility:[facility] Start: 07-15-2018 End: 07-16-2018 Patient encounter procedure TAE HICKEY Facility:[facility] Start: 11-05-2017 End: 11-08-2017 Ambulatory CHANTALE KELSEY [facility] Procedures Date Procedure Procedure Detail Performing Clinician Start: 09-02-2023 Mammography Elmer De Los Santos gs PT Work Phone: Start: 07-05-2023 Adult depression screening assessment Ronna Lauren APRN-DIRECTOR RECREATION CENTER Work Phone: Start: 11-05-2017 H/O: section H/O s ection Elmer Peterson PT Work Phone: Start: 11-05-2017 H/O: tubal ligation S/P tubal ligati on Elmer Peterson PT Work Phone: Start: 11-05-2017 History of total hysterectomy S/P TEZ (total abdominal hysterectomy) Elmer Peterson PT Work Phone: Plan of Treatment Date Care Activity Detail Author Start: 06-28-2025 End: 06-28-2025 Patient encounter procedure 06/28/2025 11:00 AM EST Office Visit [facility] [address] [place] [address] Amparo Mendoza MD [address] [place] [address] [facility] Start: 09-02-2024 Adult BMI Screening Adult BMI Screen ing [facility] Start: 09-02-2024 Screening for malign ant neoplasm of breast Mammogram [facility] Start: 07-05-2024 Depression Screening Depression Scre ening [facility] Start: 07-05-2024 Tobacco Screening Tobacco Screening [facility] Start: 06-29-2024 End: 06-29-2024 Patient encounter procedure 06/29/2024 11:05 AM EST Office Visit [facility] [address] [place] [phone] Amparo Mendoza MD [address] [place] [address] [facility] Start: 04-09-2024 COVID-19 Vaccine ( season) COVID-19 Vaccine ( season) [facility] Start: 04-09-2024 Influenza vaccination [facility] Start: 09-22-2023 End: 09-22-2023 Patient encounter procedure [facility] Comment on above: Arrived Start: 09-20-2023 End: 09-20-2023 ambulatory 09/20/2023 8:00 AM EST Treatment [facility] [address] [place] [id number] Hernan Staley, GROUP ROOMS COORDINATOR [address] [place] [address] [facility] Start: 09-17-2023 End: 09-17-2023 ambulatory 09/17/2023 9:00 AM EST Treatment [facility] [address] [place] [id number] Elmer Peterson, PT [address] [place] [address] [facility] Start: 09-15-2023 End: 09-15-2023 ambulatory 09/15/2023 8:00 AM EST Treatment [facility] [address] [place] [address] Hernan Staley, GROUP ROOMS COORDINATOR [address] [place] [address] [facility] Start: 09-13-2023 End: 09-13-2023 ambulatory 09/13/2023 8:00 AM EST Treatment [facility] [address] [place] [address] Elmer Peterson, PT [address] [place] [address] [facility] Start: 09-10-2023 End: 09-10-2023 ambulatory 09/10/2023 1:00 PM EST Treatment [facility] [address] [place] [address] Elmer Peterson, PT [address] [place] [address] [facility] Start: 04-09-2023 Influenza vaccination Influenza Vacc ine (#1) [facility] Start: 2023 Fall Risk Screening Fall Risk Screen [facility] Start: 2023 Pneumococcal Vaccine : 65+ Years (1 - PCV) Pneumococcal Vaccine: 65+ Years (1 - PCV) [facility] Start: 2023 Pneumococcal Vaccine : 65+ Years (1 of 1 - PCV) Pneumococcal Vaccine: 65+ Years (1 of 1 - PCV) [facility] Start: 01-26-2008 Administration of varicella zoster vaccine Zoster (Shingles) Vaccine (1 of 2) [facility] Start: 10-25-1999 DTaP,Tdap and Td Vac cines (1 - Tdap) DTaP,Tdap and Td Vaccines (1 - Tdap) [facility] Start: 01-26-1988 Screening for malign ant neoplasm of cervix [facility] Start: 1979 Screening for malign ant neoplasm of cervix Pap Smear [facility] Start: 01-26-1976 Adult BMI Follow Up Plan Adult BMI Follow Up Plan [facility] Start: 1960 Screening for malign ant neoplasm of colon [facility] Immunizations Immunization Date Immunization Notes Care Provider Fa oziel 11-14-2020 COVID-19, mRNA, LNP- S, PF, 100mcg/0.5mL Dose Ronna MacMain ADMITTING MANAGER-DIRECTOR RECREATION CENTER Work Phone: [facility] 10-17-2020 COVID-19, mRNA, LNP- S, PF, 100mcg/0.5mL Dose Ronna MacMain ADMITTING MANAGER-DIRECTOR RECREATION CENTER Work Phone: [facility] 06-25-2019 influenza virus vaccine, unspecified formulation Elmer Peterson PT Work Phone: [facility] Payers Date Payer Category Payer Medicaid [employer] MEDICARE A DVANTAGE [id number] 2023 Medicare AETNA MEDICARE A DVANTAGE AETNA MEDICARE REPLACEMENT [id number] 2023-Present [address] [place] [address] [id number] 2023 Medicare HMO [employer] MEDICARE [id number] 2023 Medicare [id number] 2018 Unknown 1959 Unknown [id number] 1959 Unknown [id number] 1958 Unknown [id number] [id number] 1958 Unknown [id number] 2.16.840.1.514442.3.579.2.593 1958 Unknown [id number] [id number] 1958 Unknown [id number] 2.16.840.1.854230.3.579.2.1286 1958 Unknown [id number] 2.16.840.1.950003.3.579.2.1286 1958 Unknown [id number] 2.16.840.1.342657.3.579.2.1259 1958 Unknown [id number] 2.16.840.1.501682.3.579.2.1259 1958 Unknown [id number] 2.16.840.1.205875.3.579.2.9 1958 Unknown [id number] 2.16.840.1.022477.3.579.2.9 1958 Unknown [id number] 2.16.840.1.393928.3.579.2.1258 1958 Unknown [id number] 2.16.840.1.976230.3.579.2.9 1958 Unknown [id number] 2.16.840.1.184804.3.579.2.1258 1958 Unknown [id number] 2.16.840.1.316253.3.579.2.9 1958 Unknown [id number] 2.16.840.1.107450.3.579.2.1258 1958 Unknown [id number] 2.16.840.1.776652.3.579.2.9 1958 Unknown [id number] 2.16.840.1.421208.3.579.2.9 1958 Unknown [id number] 2.16.840.1.001172.3.579.2.1259 Social History Date Type Detail Facility Start: 07-01-2022 End: 01-13-2023 Tobacco smoking status PRIS Never smoked tobacco [facility] Start: 07-01-2022 End: 01-13-2023 Tobacco use and exposure Smokeless tobacco non-user [facility] Start: 08-11-2023 End: 06-29-2024 Alcohol intake Lifetime non-drinker (finding) [facility] Start: 09-19-2020 End: 08-11-2023 History of Social function [facility] Start: 09-19-2020 End: 08-11-2023 Tobacco use panel [facility] Start: 12-26-2022 Alcohol Comment caffeine intak e: 1-2 cups per day of soda/pop [facility] Start: 1960 Sex Assigned At Female [facility] Start: 01-06-2023 Gender identity Identifies as female gender (finding) [facility] Start: 09-02-2023 Alcoholic beverage intake Current non-drinker of alcohol (finding) [facility] Adolescent depressio n screening assessment 0 [facility] Start: 1960 Sex assigned at Not on file P [facility] Start: 03-14-2015 Sex Female (finding) [facility] Clinical Notes 09-10-2023 to 08-07-2024 Telephone Encounter - Migdalia Badillo - 08/07/2024 10:27 AM ESTTelephone Encounter - FE Fried - 08/07/2024 10:27 AM ESTTelephone Encounter - Migdalia Badillo - 08/07/2024 10:27 AM EST Note Date & Type Note Facility 08-07-2024 Miscellaneous Notes Patient is requesting mammogram order. Patient not due for Medicare Breast & Pelvic exam until June 2025. Please advise. Thank you She has an active order from her PCP. She can call to schedule. Thanks, - FE Warren 08/07/24 11:35 AM Advised Patient mammogram was ordered by Dr. Acuña. Gave telephone number for [facility] Scheduling. documented in this encounter [facility] 08-07-2024 Telephone encounter Note Patient is requesting mammogram order. Patient not due for Medicare Breast & Pelvic exam until June 2025. Please advise. Thank you [facility] 08-07-2024 Telephone encounter Note She has an active order from her PCP. She can call to schedule. Thanks, - FE Warren 08/07/24 11:35 AM [facility] 08-07-2024 Telephone encounter Note Advised Patient mammogram was ordered by Dr. Acuña. Gave telephone number for [facility] Sched[facility]. [facility] 06-29-2024 History of Present illness Narrative Images from the original note were not included. Skin Check Location: Patient requests a full body skin examination Dermatologic history: no history of skin cancer, no history of atypical moles, no family history of melanoma Last visit: 1 year ago Established patient Pruritus Location: scalp Duration: months Severity: mild Quality: itchy Associated symptoms: Denies dandruff or rash, only itchy. Treatments tried: none, does use Rogaine daily Current treatments: none All pertinent medical history, medications, and allergies were reviewed. General Exam: alert , oriented to person, place, and time , normal affect, well appearing Unaccompanied Areas not examined despite medical recommendation: patient kept socks on Scalp, Examined Right leg Examined Head, Face Examined Left leg Examined Neck Examined Right foot not Examined Chest Examined Left foot not Examined Back Examined Buttocks Examined Abdomen Examined Digits,nails: Examined Right arm Examined Patient wearing nail urdu, Denies dark streaks on toenails Left arm Examined Lymphatics: Not examined Hands Examined 1. Other pruritus Scalp Skin appears normal in areas of itching Start Fluocinonide 0.05% solution up to twice a day when itchy, set aside when clear. Notify office if flaring despite treatment. fluocinonide (Lidex) 0.05 % external solution - Scalp Apply to affected areas on the scalp, up to twice a day when flared, 30 day supply 2. Notalgia paresthetica (2) Left Mid Back, Right Mid Back Hyperpigmentation in areas of scratching The patient was informed that notalgia paresthetica is a chronic itching, burning, or tingling sensation in the areas of skin just below the shoulder blade on either side of the back. The affected skin may appear normal or show changes from chronic scratching. It was explained that this is caused by nerve changes or damage in the local nerves, usually from arthritis or minor injury. The patient was informed that treatment is difficult and often ineffective. Treatment options were discussed including cooling lotions/icing the area. 3. Lentigines Scattered cervantes macules in sun-exposed areas. The patient was informed that lentigines are benign pigmented lesions that occur on sun-exposed and sun-damaged skin. No treatment is necessary. Recommended regular use of broad spectrum sunscreen SPF 30 or higher 4. Seborrheic keratosis Stuck on verrucous, cervantes-brown papules and plaques. Patient was counseled regarding these benign growths. Removal is normally not necessary, but they may be removed if they are symptomatic or for cosmetic reasons. 5. Hyperpigmentation due to hydroxychloroquine therapy Hyperpigmentation on the face and arms. Reviewed hyperpigmentation 2/2 to Plaquenil. Patient is not bothered by appearance, instructed patient to discuss with the prescribing doctor if the hyperpigmentation becomes bothersome. Next Visit: 1 year skin exam documented in this encounter [facility] 09-22-2023 History of Present illness Narrative Images from the original note were not included. Subjective Patient ID: Trent Antonio is a 63 y.o. female who presents for 6 week FUV (jud Antonio is a 63 y.o. female. Established pt presents today for 1 month fuv of left heel pain. Pt relates improvement, pt has completed 2nd course of prednisone, and PT completed 09/20/2023, pt has her own Tens unit, and would like to know recommendations on how long and often. ). HPI Established patient returns to clinic for follow up evaluation of the left Achilles tendinitis. She is made significant improvement with physical therapy. She denies pain today. No other concerns. Review of Systems Constitutional: Negative for activity change and appetite change. Respiratory: Negative for chest tightness and shortness of breath. Cardiovascular: Negative for chest pain. Endocrine: Negative for cold intolerance and heat intolerance. Musculoskeletal: Positive for arthralgias. Skin: Negative for color change and wound. Allergic/Immunologic: Negative for immunocompromised state. Neurological: Negative for weakness and numbness. Hematological: Does not bruise/bleed easily. Psychiatric/Behavioral: Negative for agitation and behavioral problems. Medications Current Outpatient Medications: Efinaconazole 10 % solution, Apply topically., Disp: , Rfl: hydroxychloroquine (Plaquenil) 200 MG tablet, TK 1 T PO BID WITH FOOD AND YEARLY EYE EXAM Oral for 30, Disp: , Rfl: loratadine (Claritin) 10 MG tablet, Take 10 mg by mouth in the morning., Disp: , Rfl: meloxicam (Mobic) 15 MG tablet, Take 1 tablet (15 mg) by mouth in the morning., Disp: 90 tablet, Rfl: 0 methylPREDNISolone (Medrol Dospak) 4 MG tablets, Take as directed on package., Disp: 21 tablet, Rfl: 0 metoprolol succinate XL (Toprol XL) 50 MG 24 hr tablet, 1 (one) time each day at the same time., Disp: , Rfl: Multiple Vitamins-Minerals (MULTIVITAMIN ADULT, MINERALS, PO), Multivitamin, Disp: , Rfl: Allergies Patient has no known allergies. Past Surgical History Past Surgical History: Procedure Laterality Date CATARACT EXTRACTION, BILATERAL 08/25/22 & 09/01/2022 SECTION, CLASSIC DILATION AND CURETTAGE PARTIAL HYSTERECTOMY ROTATOR CUFF REPAIR October 2022 SHOULDER ARTHROSCOPY 10/20/2022 Dr Yan SHOULDER SURGERY Shoulder spurs removed Family History Family History Problem Relation Name Age of Onset Diabetes Mother Diabetes Father Melanoma Neg Hx Objective Physical Exam Constitutional: Appearance: She is obese. HENT: Head: Normocephalic and atraumatic. Cardiovascular: Pulses: Normal pulses. Pulmonary: Effort: Pulmonary effort is normal. No respiratory distress. Abdominal: Palpations: There is no mass. Musculoskeletal: Cervical back: No rigidity. Comments: Weightbearing examination reveals Pes planovalgus deformity with rearfoot valgus. Left foot: No tenderness to palpation. Warmth and edema have subsided. Negative heel squeeze test. No palpable deficit of the tendon. Negative Holloway test. Muscle strength 5/5 for all quadrants without tenderness. Ankle dorsiflexion 0 degrees with the knee extended and flexed. Skin: Capillary Refill: Capillary refill takes less than 2 seconds. Findings: No lesion or rash. Neurological: Mental Status: She is alert. Comments: No loss of protective sensation, gross sensation intact. Psychiatric: Mood and Affect: Mood normal. Behavior: Behavior normal. Assessment/Plan ICD-10-CM 1. Achilles tendinitis of left lower extremity M76.62 2. Equinus contracture of left ankle M24.572 Patient was examined and evaluated. Reviewed previous imaging studies. Patient has made significant improvement with oral anti-inflammatories and physical therapy. At this time I recommend that she continue stretching exercises on a regular basis. If she develops any flares of symptoms I recommend [id number]-lbp-edccokc anti-inflammatories and close follow up with our office. I did briefly discuss surgical options if she continues to have issues going forward. For now I will see her back as needed. This note was created with the assistance of a speech recognition program. While intending to generate a timely document that accurately reflects the content of the visit, no guarantee can be provided that every grammatical or spelling mistake has been or will be identified or corrected. Thank you for your understanding. Hang Garcia DPM documented in this encounter [facility] 09-17-2023 History of Present illness Narrative Physical Therapy Physical Therapy Evaluation Visit Patient Name: Trent Antonio Today's Date: 09/17/2023 Encounter Diagnoses Name Primary? Achilles tendinitis of left lower extremity Yes Left shoulder pain, unspecified chronicity Shoulder stiffness, left Other specified postprocedural states Visit number: 3 Sup time: 38 min Total time: 55 min Progress: improving pain and swelling since starting PT Subjective Trent Antonio 63 y.o. female presents to physical therapy w/ chief c/o L heel/achilles pain. Mechanism of Onset: no YUDI, likely deg factors with spurring Current deficits: pain, decreased ROM, impaired gait at times, decreased QOL Pain: no pain into session, no significant pain recently, mild pain/soreness at times but definitely improved. Location: post/med calc near achilles insertion Aggravating Factors: Wbing, standing/walking, shoes rubbing, ADLs/self care at times Relieving factors: rest, ice, meds Imaging: Xray results in EMR, spurring noted around achilles insertion Precautions: spur per X-ray Objective L ankle AROM WNL other than very min DF loss. Strength grossly 4+/5 MMT no pain reported. Mild swelling with redness and TTP post/med calcaneus around achilles insertion. C/o tightness in a.m. and issues with shoes rubbing. Limping at times when exacerbated. (At IE) Treatment Interventions Education: HEP education with demonstration, Educated on Eval Findings and POC, CP use. Manual Therapy: STM/massage achilles and gentle over calc x 8 min Therapeutic Exercise: per KAYE grid ROM, flexibility, strengthening as appropriate x 22, 27 total, min sup demo and verbal cues for correct technique and to keep stretches pain free Therapeutic Activity: Exercises to improve dynamic activities, functional tasks, functional mobility to return to prior activity level Modalities: US (50%) 3.0 mhz 1.0 w/cm2 x 8 min, CP/Estim IFC x 10 min end of session for pain/inflammation Assessment/Plan L heel/achilles pain, impaired gait at times, decreased flexibility causing increased difficulty with ADLs/self care, decreased QOL Tolerated well, inflammation significantly down since starting PT. Hopeful she can avoid further intervention despite known spur. documented in this encounter [facility] 09-13-2023 History of Present illness Narrative Physical Therapy Physical Therapy Evaluation Visit Patient Name: Trent Antonio Today's Date: 09/13/2023 Encounter Diagnoses Name Primary? Achilles tendinitis of left lower extremity Yes Visit number: 93 Sup time: 38 min Total time: 55 min Subjective Trent Antonio 63 y.o. female presents to physical therapy w/ chief c/o L heel/achilles pain. Mechanism of Onset: no YUDI, likely deg factors with spurring Current deficits: pain, decreased ROM, impaired gait at times, decreased QOL Pain: no pain into session, no significant pain over the weekend, min soreness at times. Location: post/med calc near achilles insertion Aggravating Factors: Wbing, standing/walking, shoes rubbing, ADLs/self care at times Relieving factors: rest, ice, meds Imaging: Xray results in EMR, spurring noted around achilles insertion Precautions: spur per X-ray Objective L ankle AROM WNL other than very min DF loss. Strength grossly 4+/5 MMT no pain reported. Mild swelling with redness and TTP post/med calcaneus around achilles insertion. C/o tightness in a.m. and issues with shoes rubbing. Limping at times when exacerbated. (At IE) Treatment Interventions Education: HEP education with demonstration, Educated on Eval Findings and POC, CP use. Manual Therapy: STM/massage achilles and gentle over calc x 8 min Therapeutic Exercise: per KAYE grid ROM, flexibility, strengthening as appropriate x 22, 25 total, min sup demo and verbal cues for correct technique and to keep stretches pain free, tolerated well including added KAYE. Therapeutic Activity: Exercises to improve dynamic activities, functional tasks, functional mobility to return to prior activity level Modalities: US (50%) 3.0 mhz 1.0 w/cm2 x 8 min, CP/Estim IFC x 12 min end of session for pain/inflammation Assessment/Plan L heel/achilles pain, impaired gait at times, decreased flexibility causing increased difficulty with ADLs/self care, decreased QOL Tolerated well, continue POC. documented in this encounter [facility] 09-10-2023 History of Present illness Narrative Physical Therapy Physical Therapy Evaluation Visit Patient Name: Trent Antonio Today's Date: 09/10/2023 Encounter Diagnoses Name Primary? Achilles tendinitis of left lower extremity Yes Left shoulder pain, unspecified chronicity Shoulder stiffness, left Other specified postprocedural states Visit number: 2 Sup time: 24 min Total time: 40 min Subjective Trent Antonio 63 y.o. female presents to physical therapy w/ chief c/o L heel/achilles pain. Mechanism of Onset: no YUDI, likely deg factors with spurring Current deficits: pain, decreased ROM, impaired gait at times, decreased QOL Pain: no pain into session, feels swelling down some and rubbing in shoe less. Location: post/med calc near achilles insertion Aggravating Factors: Wbing, standing/walking, shoes rubbing, ADLs/self care at times Relieving factors: rest, ice, meds Imaging: Xray results in EMR, spurring noted around achilles insertion Precautions: spur per X-ray Objective L ankle AROM WNL other than very min DF loss. Strength grossly 4+/5 MMT no pain reported. Mild swelling with redness and TTP post/med calcaneus around achilles insertion. C/o tightness in a.m. and issues with shoes rubbing. Limping at times when exacerbated. (At IE) Treatment Interventions Education: HEP education with demonstration, Educated on Eval Findings and POC, CP use. Manual Therapy: STM/massage prn Therapeutic Exercise: per KAYE grid ROM, flexibility, strengthening as appropriate x 16 min sup demo and verbal cues for correct technique and to keep stretches pain free, tolerated well including added KAYE. Therapeutic Activity: Exercises to improve dynamic activities, functional tasks, functional mobility to return to prior activity level Modalities: US (50%) 3.0 mhz 1.0 w/cm2 x 8 min, CP/Estim IFC x 12 min end of session for pain/inflammation Assessment/Plan L heel/achilles pain, impaired gait at times, decreased flexibility causing increased difficulty with ADLs/self care, decreased QOL Tolerated well, continue POC. documented in this encounter [facility] Evaluation note Diagnosis Achilles tendinitis of left lower extremity- Primary [facility] Diagnosis Achilles tendinitis of left lower extremity- Primary [facility] Diagnosis Achilles tendinitis of left lower extremity- Primary Left shoulder pain, unspecified chronicity Shoulder stiffness, left Other specified postprocedural states [facility] Diagnosis Achilles tendinitis of left lower extremity- Primary Equinus contracture of left ankle [facility]* Diagnosis Seborrheic keratosis- Primary Other pruritus Notalgia paresthetica Disturbance of skin sensation Lentigines Hyperpigmentation due to hydroxychloroquine therapy [facility] Diagnosis Encounter for screening mammogram for malignant neoplasm of breast- Primary documented in this [facility] [employer] SystemInstructionsNot on filedocumented in this [facility] Summary Purpose Family History No Family History Records FoundNo Family History Records FoundNo Family History Records FoundNo Family History Records FoundNo Family History Records Found Advance Directives No Advanced Directives Records FoundNo Advanced Directives Records FoundNo Advanced Directives Records FoundNo Advanced Directives Records FoundNo Advanced Directives Records Found Additional Source Comments INFORMATION SOURCE (unrecogn ized section and content) DATE CREATED AUTHOR 01/27/2018 [facility] DATE CREATED AUTHOR AUTHOR'S ORGANIZ ATION 07/19/2018 [facility] DATE CREATED AUTHOR AUTHOR'S ORGANIZ ATION 12/20/2022 [facility] DATE CREATED AUTHOR AUTHOR'S ORGANIZ ATION 03/17/2024 [facility] DATE CREATED AUTHOR AUTHOR'S ORGANIZ ATION 07/02/2024 [facility] EPIC Care Teams (unrecognized sec tion and content) Animal Chiropractor Relationship Specialty Start Date End Date Nagi Acuña MD [address] [place], [place] [id number] PCP - General Internal Medicine 01/12/23 Animal Chiropractor Relationship Specialty Start Date End Date Nagi Acuña MD [address] [place] [address] PCP - General Internal Medicine 01/12/23 Animal Chiropractor Relationship Specialty Start Date End Date Nagi Acuña MD [address] [place] [address] PCP - General Internal Medicine 01/12/23 Animal Chiropractor Relationship Specialty Start Date End Date Nagi Acuña MD [address] [place], [place] [id number] PCP - General Internal Medicine 01/12/23 Animal Chiropractor Relationship Specialty Start Date End Date Nagi Acuña MD [address] [place], [place] [id number] PCP - General Internal Medicine 01/12/23 Animal Chiropractor Relationship Specialty Start Date End Date Nagi Acuña MD [address] [place] [id number] PCP - General Internal Medicine 01/12/23 Animal Chiropractor Relationship Specialty Start Date End Date Nagi Acuña MD [address] [place] [address] [id number] PCP - General Internal Medicine 01/12/23 Animal Chiropractor Relationship Specialty Start Date End Date Nagi Acuña Jr., DO [address] [place] [address] [id number] PCP - General Internal Medicine 06/10/17 Reason for Visit (unrecogniz ed section and content) Specialty Diagnoses / Procedures Referred By Luis villatoro Referred To Contact Physical Therapy Diagnoses Achilles tendinitis of left lower extremity Procedures [place] OFFICE/OUTPATIENT [facility] MDM 60 MINUTES Hang Garcia, DPM [address] [place] [address] Elmer Peterson, PT [address] [place] [address] Referral ID Status Reason Start Date Expiration Date Visits Requested Visits Authorized [id number] Authorized Specialty Services Required 08/11/2023 02/07/2024 99 99 Reason Comments 6 week FUV jud Antonio is a 63 y.o. female. Established pt presents today for 1 month fuv of left heel pain. Pt relates improvement, pt has completed 2nd course of prednisone, and PT completed 09/20/2023, pt has her own Tens unit, and would like to know recommendations on how long and often. Reason Comments Skin Check FOR RECORDS PERTAINING TO PATIENTS WHO ARE OR HAVE BEEN ENROLLED IN A CHEMICAL DEPENDENCY/SUBSTANCEABUSE PROGRAM, SOME INFORMATION MAY BE OMITTED. This clinical summary was aggregated from multiple sources. Caution should be exercised in using it in the provision of clinical care. This summary normalizes information from multiple sources, and as a consequence, information in this document may materially change the coding, format and clinical context of patient data. In addition, data may be omitted in some cases. CLINICAL DECISIONS SHOULD BE BASED ON THE PRIMARY CLINICAL RECORDS. [facility]. provides no warranty or guarantee of the accuracy or completeness of information in this document.
[2024-08-18 09:48] LABS: Basophils Absolute Auto 0.1 10^3/uL (0.0-0.1); Basophils Percent Auto 0.8 % (0.2-2.0); Eosinophils Absolute Auto 0.2 10^3/uL (0.0-0.7); Eosinophils Percent Auto 2.5 % (0.9-7.0); Hematocrit 38.8 % (36.0-48.0); Hemoglobin 12.6 g/dL (12.0-16.0); Immature Granulocytes Abs Auto 0.03 10^3/uL (0.00-0.03); Immature Granulocytes Pct Auto 0.4 % (0.0-0.5); Lymphocytes Percent Auto 23.5 % (20.5-60.0); Mean Corpuscular HGB Conc 32.5 g/dL (29.9-35.2); Mean Corpuscular Hemoglobin 29.2 pg (26.7-34.0); Mean Platelet Volume 8.7 fL (9.5-13.5); Monocytes Absolute Auto 0.8 10^3/uL (0.3-0.8); Monocytes Percent Auto 9.7 % (1.7-12.0); Neutrophils Absolute Auto 5.3 10^3/uL (1.4-6.5); Neutrophils Percent Auto 63.1 % (43.0-75.0); Platelet Count 463 10^3/uL (150-450); Red Blood Count 4.31 10^6/uL (4.20-5.40); Red Cell Distribution Width 14.2 % (11.0-15.0); White Blood Count 8.4 10^3/uL (4.0-11.0)
[2024-08-18 09:56] LABS: Erythrocyte Sedimentation Rate 33 mm/hr (<=30)
[2024-08-18 10:04] LABS: Estimated GFR (African America >60 (>=60 mL/min/1.73m^2); Estimated GFR (Non-African Ame >60 (>=60 mL/min/1.73m^2)
[2024-08-18 10:09] LABS: Bilirubin Urine NEGATIVE (NEGATIVE); Blood Urine TRACE-I (NEGATIVE); Clarity Urine CLEAR (CLEAR); Color Urine LT. YELLOW (YELLOW); Glucose Urine UA NEGATIVE (NEGATIVE); Ketones Urine NEGATIVE (NEGATIVE); Leukocyte Esterase Urine TRACE (NEGATIVE); Nitrite Urine NEGATIVE (NEGATIVE); Protein Urine NEGATIVE (NEG/TRACE); Urobilinogen Urine 0.2 EU/dL (0.2-1.0)
[2024-08-18 10:52] LABS: Bacteria Urine TRACE #/HPF (NONE SEEN); RBC Urine 0-2 #/HPF (0-2); WBC Urine 0-2 #/HPF (NONE SEEN)
[2024-08-18 10:53] LABS: Cast Seen? NONE SEEN #/LPF (NONE SEEN); Crystals Seen? None Seen #/HPF (None Seen); Mucus Urine NONE SEEN (NONE SEEN); Squamous Epithelial Cell Urine FEW #/LPF (NONE/RARE); Transitional Epi Cells Urine RARE #/LPF (NONE SEEN); Urine Culture Indicated NO
[2024-08-19 09:07] LABS: Complement C3, Serum 165 mg/dL (82-167); Complement C4, Serum 30 mg/dL (12-38)
== END 2024-08-18 08:49 | disposition home or self-care (01) ==
LOC: LAB 08:50
PROVIDERS: PCP Internal Medicine; Visit Provider Internal Medicine Rheumatology
DX: R94.5 Abnormal results of liver function studies (principal); M35.9 Systemic involvement of connective tissue, unspecified; Z79.899 Other long term (current) drug therapy
CPT/HCPCS: 36415; 81001; 82565; 85025; 85652; 86160

== ENCOUNTER 2025-02-15 07:52 | Outpatient (OUT) | payer MEDICARE, SELFPAY ==
--- OUTSIDE RECORDS SUMMARY | 2025-02-15 07:56 | XMS_ITS | Clinical Summary ---
Author Organization [facility] Address [address] [place], [place] [id number] Care Team Providers Care Ground Nuclear Weapons Assembly Officer Name Role Phone Hemanth Mendieta DONagi Primary Care Provi dori Refugio Adolph Melissa Unavailable [phone] Allergies No known active allergies Medications sulfamethoxazol e-trimethoprim (BACTRIM DS,SEPTRA DS) 800-160 mg per tablet TK 1 T PO BID 0 08/27/2017 Active methylPREDNISol one (MEDROL DOSE-PACK) 4 mg Dose-Pack TK UTD 0 08/27/2017 Active metoprolol succinate ER (TOPROL XL) 50 mg 24 hr tablet TK 1 T PO D IN THE MORNING AND 1 T QHS 1 09/03/2017 Active cephALEXin (KEFLEX) 500 mg capsule TK 1 C PO TID 0 10/19/2017 Active HYDROcodone-elton taminophen (NORCO) 5-325 mg per tablet 0 10/03/2017 Activ e hydroxychloroqu ine (PLAQUENIL) 200 mg tablet TK 1 T PO BID WITH FOOD 11 10/17/2017 Active Cholecalciferol , Vitamin D3, 1,000 unit cap Take 1,000 Units by mouth. Active ascorbic acid, vitamin C, (VITAMIN C) 500 mg tablet Take 500 mg by mouth. Active loratadine (CLARITIN) 10 mg tablet Take 10 mg by mouth. Active azithromycin (ZITHROMAX) 250 mg tablet Take 1 tablet by mouth. 06/07/2017 Active Active Problems Problem Noted Date Diagnosed Date S/P tubal ligation 11/05/2017 S/P TEZ (total abdominal hysterectomy) 8 H/O section 11/05/2017 Obesity (BMI 30.0-34.9) 11/05/2017 Irregular heart beat 11/05/2017 Social History Tobacco Use Types Packs/Day Years Used Date Smoking Tobacco: Never Assessed Area Deprivation Index Answer Date Gaston rded National Score (1-100), lower number is lower ri sk Not on file 07/16/2020 State Score (1-10), lower number is lower risk N ot on file 07/16/2020 Data from: https://www.neighborhoodatlas.medicine.[facility]/. Last address used for calculation Not on file 07/16/2020 Comments Unknown Sex and Gender Information Value Date Recorded Sex Assigned at Not on file Legal Sex Female 3:00 PM EST Gender Identity Not on file Sexual Orientation Not on file Last Filed Vital Signs Vital Sign Reading Time Taken Comments Blood Pressure 144/79 11/05/2017 1:34 PM EDT Pulse 84 11/05/2017 1:34 PM EDT Temperature 36.7 C (98 F) 11/05/2017 1:34 PM EDT Respiratory Rate - - Oxygen Saturation 98% 11/05/2017 1:3 4 PM EDT Inhaled Oxygen Concentration - - Weight 86.2 kg (190 lb) 11/05/2017 1:34 PM EDT cast on right foot Height 167.6 cm (5' 6 ) 11/05/2017 1:34 PM EDT Body Mass Index 30.67 11/05/2017 1:34 PM EDT Plan of Treatment Health Maintenance Due Date Last Done Comments Anxiety Screening 01/26/1976 Depression Screening 01/26/1976 Hepatitis C Screening 01/26/1976 DTaP,Tdap,Td Vaccine (1 - Tdap) [address] Colonography 2003 Cologuard (FIT-DNA) 2003 Colonoscopy 2003 Colorectal Cancer Screening 2003 Diabetes Screening 2003 Fecal Occult Blood 2003 Lipid Screening 2003 Sigmoidoscopy 2003 Pneumococcal Vaccine: 50+ (1 of 1 - PCV) 01/26/2008 Shingrix Vaccine (1 of 2) 01/26/2008 Bone Density Screening 2023 Covid-19 Vaccine ( - season) 2024 Advance Directive Discussion 08/09/2024 Influenza Vaccine (#1) 2025 RSV Vaccine (1 - 1-dose 75+ series) 2033 Care Teams Ground Nuclear Weapons Assembly Officer Relationship Specialty Start Date End Date Nagi Saxena Jr., DO [address] [place] [address] PCP - General Internal Medicine 09/20/17 Adolph Huff [address] [place] [id number] Referring Rheumatology 09/20/17
--- OUTSIDE RECORDS SUMMARY | 2025-02-15 07:56 | XMS_ITS | Encounter Summary ---
Author Organization [facility] Address [address] [facility] [place] [address] Care Team Providers Care Personal Fitness Trainer Name Role Phone Nagi Saxena MD Primary Care Provider [phone] Encounter Details Date Type Department Care Team (Late Contact Info) Description 01/12/2023 Abstract [facility] [address] [place] [address] Ean Britton, CORPORATE WEBMASTER [address] [place] [address] Social History Tobacco Use Types Packs/Day Years Used Date Smoking Tobacco: Never Alcohol Use Standard Drinks/Week Comments Never 0 (1 standard drink = 0.6 oz pure alcohol) caffeine intake: 1-2 cups per day of soda/pop Comments Unknown Sex and Gender Information Value Date Recorded Sex Assigned at Female 01/06/2023 8:48 AM EDT Legal Sex Female 7:32 PM EDT Gender Identity Female 01/06/2023 8:48 AM EDT Sexual Orientation Not on file COVID-19 Exposure Response Date Recorded In the last 10 days, have yo u been in contact with someone who was confirmed or suspected to have Coronavirus/COVID-19? No / Unsure 01/12/2023 3:13 PM EDT documented as of this encounter Plan of Treatment Upcoming Encounters Date Type Department Care Team (Late Contact Info) Description 06/28/2025 11:00 AM EST [facility] [address] [facility] [address] [place] [phone] Amparo Rodgers MD [address] [facility] [address] [place] [address] documented as of this encounter Visit Diagnoses Not on filedocumented in this encounter Care Teams Personal Fitness Trainer Relationship Specialty Start Date End Date Nagi Saxena MD [address] [place] [address] PCP - General Internal Medicine 01/12/23 documented as of this encounter
--- OUTSIDE RECORDS SUMMARY | 2025-02-15 07:56 | XMS_ITS | Clinical Summary ---
Author Organization [facility] Address [address] [place] [address] Care Team Providers Care Stagecraft Professor Name Role Phone Nagi Saxena MD Primary Care Provider [phone] Allergies No known active allergies Medications metoprolol succinate XL (Toprol XL) 50 MG 24 hr tablet 1 (one) time each day at the same time. Active loratadine (Claritin) 10 MG tablet Take 10 mg by mouth in the morning. Active hydroxychloroqu ine (Plaquenil) 200 MG tablet TK 1 T PO BID WITH FOOD AND YEARLY EYE EXAM Oral for 30 Active Multiple Vitamins-Minera ls (MULTIVITAMIN ADULT, MINERALS, PO) Multivitamin Act eleazar Multiple Vitamin (multivitamin) tablet Take 1 tablet by mouth Daily Vitamin D Active Active Problems Problem Noted Date Diagnosed Date Achilles tendinitis of left lower extremity 08/11 Left shoulder pain 01/14/2023 Shoulder stiffness, left 01/14/2023 Other specified postprocedural states 01/14/2023 Internal derangement of left shoulder 01/13/2023 Osteoarthritis of left knee 01/13/2023 Right carpal tunnel syndrome 01/13/2023 Arthritis 06/16/2018 Overview (01/13/2023): Both hands. Takes plaquenil S/P TEZ (total abdominal hysterectomy) 8 H/O section 11/05/2017 Irregular heart beat 11/05/2017 Obesity (BMI 30.0-34.9) 11/05/2017 S/P tubal ligation 11/05/2017 H/O abdominal hysterectomy 06/10/2017 Overview (01/13/2023): 1990 - for heavy bleeding. Encounters Date Type Department Care Team Description 12/26/2024 8:15 AM EDT Office Visit [facility] [address] [place] [address] Bhavin Patricio PA S/P carpal tunnel release (Primary Dx) 12/26/2024 Bamboo flowsheet [facility] [address] [place] [address] Bhavin Patricio PA 12/26/2024 Travel 12/25/2024 Travel 12/12/2024 10:00 AM EDT Office Visit [facility] [address] [place] [address] Bhavin Patricio PA S/P carpal tunnel release (Primary Dx) 12/12/2024 Bamboo flowsheet [facility] [address] [place] [address] Bhavin Patricio PA 12/12/2024 Travel 12/05/2024 Travel 11/27/2024 Refill [facility] [address] [place] [address] Ean Britton, NEUROSURGERY PHYSICIAN Acute post-operative pain (Primary Dx) from Last 3 Months Family History Medical History Relation Name Comments Diabetes Father Diabetes Mother Melanoma Neg Hx Relation Name Status Comments Father Mother Social History Tobacco Use Types Packs/Day Years Used Date Smoking Tobacco: Never Smokeless Tobacco: Never Tobacco Cessation:Counseling Given: Not Answered Alcohol Use Standard Drinks/Week Comments Never 0 (1 standard drink = 0.6 oz pure alcohol) caffeine intake: 1-2 cups per day of soda/pop Comments Unknown Sex and Gender Information Value Date Recorded Sex Assigned at Female 01/06/2023 8:48 AM EDT Legal Sex Female 7:32 PM EDT Gender Identity Female 01/06/2023 8:48 AM EDT Sexual Orientation Not on file Last Filed Vital Signs Vital Sign Reading Time Taken Comments Blood Pressure - - Pulse - - Temperature - - Respiratory Rate - - Oxygen Saturation - - Inhaled Oxygen Concentration - - Weight 81.6 kg (180 lb) 11/14/2024 1:54 PM EDT Height 167.6 cm (5' 6 ) 11/14/2024 1:54 PM EDT Body Mass Index 29.05 11/14/2024 1:54 PM EDT Plan of Treatment Upcoming Encounters Date Type Department Care Team (Late st Contact Info) Description 06/28/2025 11:00 AM EST Office Visit [facility] [address] [place] [address] Amparo Rodgers MD [address] [place] [address] Health Maintenance Due Date Last Done Comments CT Colonography 1958 Colonoscopy 1958 Colorectal Cancer Screening 1958 FIT-DNA 1958 FIT 1958 FOBT 1958 Sigmoidoscopy 1958 Pneumococcal Vaccine: 65+ Ye ars (1 of 1 - PCV) 01/26/2008 Influenza Vaccine (#1) 2025 06/25/2019 Mammogram 09/06/2025 09/06/2024, 08/10, 08/31/2022, Additional history exists Cervical Cancer Screening Discontinued HPV/Cotest Discontinued 06/24/2020 Pap Smear Discontinued Insurance [employer] MEDICARE ADVANTAGE Care Teams Stagecraft Professor Relationship Specialty Start Date End Date Nagi Saxena MD [facility] [place] [address] PCP - General Internal Medicine 01/12/23
--- OUTSIDE RECORDS SUMMARY | 2025-02-15 07:56 | XMS_ITS | Clinical Summary ---
Author Organization [employer] tem Address [facility] [id number] [address] [place] [address] Care Team Providers Care Battery Assembler Name Role Phone Hemanth Mendieta DO, Charles L Primary Care Provider Allergies No known active allergies Medications hydroxychloroqu ine (PLAQUENIL) 200 mg tablet Take 1 tablet (200 mg total) by mouth in the morning. 11 06/03/2017 Active loratadine (CLARITIN) 10 mg tablet Take 1 tablet (10 mg total) by mouth in the morning. Active cholecalciferol , vitamin D3, 25 mcg (1,000 unit) capsule Take 1 capsule (1,000 Units total) by mouth in the morning. Active metoprolol succinate XL (TOPROL-XL) 50 mg 24 hr tablet TK 1 T PO D IN THE MORNING AND 1 T QHS 09/03/2017 Active famotidine (PEPCID) 40 mg tablet Take 1 tablet (40 mg total) by mouth in the morning. Active [id number] A-calcium &mins (THERAGRAN-M) 9 mg iron-400 mcg tablet Take 1 tablet by mouth in the morning. Active UNABLE TO FIND Take 1 tablet by mouth in the morning. Vitamin Code B. Active UNABLE TO FIND Take 1 drop by mouth in the morning. Ultimate Mineral Supplement. Active esomeprazole (NexIUM) 40 mg capsule Take 1 capsule (40 mg total) by mouth every morning before breakfast. Active Active Problems Problem Noted Date Diagnosed Date Arthritis 06/16/2018 Overview (06/16/2018): Both hands. Takes plaquenil S/P TEZ (total abdominal hysterectomy) 8 Encounters Date Type Department Care Team Description 11/21/2024 Telephone [facility] General Surgery [address] [place] [id number] Arielle Elkins CMA 11/16/2024 10:31 AM EDT Anesthesia Event [facility] Surgery [address] [place] [address] Junior Oscar MD 11/16/2024 10:15 AM EDT - 11/16/2024 10:45 AM EDT Surgery [facility] Surgery [address] [place] [address] Liz Kinsey, DO ESOPHAGOGASTRODUODENOSCOPY DIAGNOSTIC [26915 (CPT )] 11/16/2024 8:27 AM EDT - 11/16/2024 11:10 AM EDT Hospital Encounter [facility] Surgery [address] [place] [address] Liz Kinsey, DO Gastroesophageal reflux disease, unspecified whether esophagitis present (Primary Dx); Esophagitis Discharge Disposition: Home 11/16/2024 Travel from Last 3 Months Immunizations Immunization Administration Dates Next Due COVID-19, mRNA, LNP-S, PF, 100mcg/0.5mL Dose 03/2021,10/17/2020 Family History Medical History Relation Name Comments Diabetes Brother 1 marva Diabetes Brother 2 selam No Known Problems Brother 3 caroline No Known Problems Brother 4 liz Diabetes Father Diabetes Mother No Known Problems Sister 1 amberly No Known Problems Sister 2 aston No Known Problems Sister 3 yenny No Known Problems Sister 4 anay No Known Problems Sister 5 vivian No Known Problems Sister 6 melinda No Known Problems Sister 7 alejandro Breast cancer Neg Hx Colon cancer Neg Hx Ovarian cancer Neg Hx Pancreatic cancer Neg Hx Relation Name Status Comments Brother 1 marva Brother 2 selam Alive Brother 3 caroline Alive Brother 4 liz Alive Father Mother Sister 1 amberly Alive Sister 2 aston Alive Sister 3 yenny Alive Sister 4 anay Alive Sister 5 vivian Alive Sister 6 melinda Alive Sister 7 alejandro Alive Sister 8 lara Alive Social History Tobacco Use Types Packs/Day Years Used Date Smoking Tobacco: Never Smokeless Tobacco: Never Tobacco Cessation:Counseling Given: Not Answered Alcohol Use Standard Drinks/Week Comments No 0 (1 standard drink = 0.6 oz pur e alcohol) PHQ-2 Answer Date Recorded Total Score 0 07/05/2023 Childcare Answer Date Recorded Childcare Unknown 01/18/2019 Employment Answer Date Recorded Employment Unknown 01/18/2019 Hunger Screening Answer Date Recorded Within the past 12 months we worried whether our food would run out before we got money to buy more. Never True 11/07/2024 Within the past 12 months th e food we bought just didn't last and we didn't have money to get more. Never True 11/07/2024 Purpose - Life Answer Date Recorded Purpose and direction in life Unknown Comments No Sex and Gender Information Value Date Recorded Sex Assigned at Not on file Legal Sex Female 11:23 AM EDT Gender Identity Not on file Sexual Orientation Not on file Last Filed Vital Signs Vital Sign Reading Time Taken Comments Blood Pressure 126/90 11/16/2024 10:55 AM EDT Pulse 91 11/16/2024 10:55 AM EDT Temperature 36.6 C (97.9 F) 11/16/2024 10:45 AM EDT Respiratory Rate 23 11/16/2024 10:55 AM EDT Oxygen Saturation 97% 11/16/2024 10:55 AM EDT Inhaled Oxygen Concentration - - Weight 81.6 kg (180 lb) 11/16/2024 8:41 AM EDT Height 167.6 cm (5' 6 ) 11/16/2024 8:41 AM EDT Body Mass Index 29.05 11/16/2024 8:41 AM EDT Plan of Treatment Health Maintenance Due Date Last Done Comments Adult BMI Follow Up Plan 01/26/1976 DTaP,Tdap and Td Vaccines (1 - Tdap) 10/25/1999 10/24/1999 Zoster (Shingles) Vaccine (1 of 2) 01/26/2008 Fall Risk Screening 2023 COVID-19 Vaccine (4 - 2023-2 5 season) 2024 07/16/2021, 11/14/2020, 10/17/2020 Depression Screening 07/05/2024 07/05/2023 Influenza Vaccine 04/09/2025 06/25/2019 Adult BMI Screening 11/16/2025 11/16/2024 Tobacco Screening 11/16/2025 11/16/2024 Pap Smear Discontinued 06/24/2020, 06/24/2020 Medical Devices Not on file Procedures Procedure Name Priority Date/Time Associated Diagnosis Comments HC AEROBIC ISO ID, EACH Routine 11/17/19 10:37 AM EDT SURGICAL PATHOLOGY Routine 11/16/2024 10:36 AM EDT FL ESOPHAGOGASTRODUODENOSCOP Y TRANSORAL DIAGNOSTIC 11/16/2024 10:31 AM EDT gastroesophagea l reflux EGD 11/16/2024 10:20 AM EDT PROVATION EGD Routine 11/16/2024 8:36 AM EDT HIGH RISK HPV W/HECTOR Routine 06/24/2020 10:32 AM EST Encounter for screening mammogram for malignant neoplasm of breast from Last 3 Months or Most Recently Relevant to Health Maintenance Results * H Pylori Screen (11/16/2024 10:37 AM EDT) Clotest h pylori/ h pylori screen Negative Negative^N egative 11/17/2024 6:46 AM EDT [facility] Tissue Stomach structure / Unknown 11/16/2024 10:37 AM EDT Comment:Pre-op diagnosis: gastroesophageal reflux us Liz Kinsey DO MICROBIOLOGY - GENERAL ORDE JANENE Final Result [facility] [address] [place] [address] * Surgical Pathology (11/16/2024 10:36 AM EDT) Tissue (Antrum biopsy) 11/16/2024 10:36 AM EDT Comment:Pre-op diagnosis: gastroesophageal reflux Tissue specimen (specimen) (Esophageal distal biopsy) 11/16/2024 10:38 AM EDT Comment:Pre-op diagnosis: gastroesophageal reflux Narrative COPATH - 11/20/2024 3:31 PM EDT [facility] [address] [place] [address] Surgical Pathology Consultation Patient Name:TRENT ANTONIO:1960 (Age: 64)Gender:FTaken:11/16/2024Reported:11/20/2024Physician(s):Liz Kinsey D.O. ([phone])Copy To: Rec. #:[id number]: #[id number] Final Pathologic Diagnosis 1. Gastric antrum biopsies: Normal gastric corpus mucosa. No inflammation, intestinal metaplasia, dysplasia or H. pylori organisms identified. 2. Distal esophageal biopsies: Unremarkable squamous and gastric fundic mucosa. No active or eosinophilic esophagitis identified. No intestinal metaplasia or dysplasia identified. Report Electronically Signed Out [facility]/11/20/2024Ryan Grewal M.D. Interpretation performed at [place] [address], License number: [id number]. Clinical History Gastroesophageal reflux. Gross Description 1. Received in formalin labeled DC, antrum biopsy , are 2 cervantes feathery tissue bits each 0.2 cm greatest dimension. The specimen is filtered and submitted entirely in a single cassette. (1,ns,[id number], m1) SW 2. Received in formalin labeled [facility], distal esophagus biopsy , are 3 cervantes-hood feathery tissue bits 0.2 cm - 0.3 cm. The specimen is filtered and submitted entirely in a single cassette. (1,ns,[id number], m1) SW sxw/11/17/2024NSK Specimen(s) Received 1: Antrum biopsy 2: Distal esophageal biopsy Fee Codes(s): 1; 14928 2; 42242 us Liz E Grillis DO PATHOLOGY/CYTOLOGY ORDERABL ES Final Result COPATH * EGD (11/16/2024 10:20 AM EDT) 11/16/2024 10:2 0 AM EDT Narrative PM CARDIOVASCULAR - 11/16/2024 10:44 AM EDT [facility] Patient Name: Trent Antonio Procedure Date No Time: 11/16/2024 CSN : [id number] Date of : 1960 Admit Type: Outpatient Age: 64 Room: [place] [address] Gender: Female Note Status: Finalized Attending MD: Liz Kinsey DO, Procedure: Upper GI endoscopy Indications: Gastro-esophageal reflux disease Providers: Liz Kinsey DO Referring MD: Liz Kinsey DO Medicines: Propofol per Anesthesia Complications: No immediate complications. Procedure: After obtaining informed consent, the endoscope was passed under direct vision. Throughout the procedure, the patient's blood pressure, pulse, and oxygen saturations were monitored continuously. The OLYMPUS GIF-[id number] #[id number] ADULT GASTROSCOPE was introduced through the mouth, and advanced to the fourth part of duodenum. The upper GI endoscopy was accomplished without difficulty. The patient tolerated the procedure well. Findings: The nasopharynx and oropharynx were normal. LA Grade A (one or more mucosal breaks less than 5 mm, not extending between tops of 2 mucosal folds) esophagitis with no bleeding was found 35 cm from the incisors. Biopsies were taken with a cold forceps for histology. The entire examined stomach was normal. Biopsies were taken with a cold forceps for histology. The examined duodenum was normal. Estimated Blood Loss: Estimated blood loss was minimal. Impression: - Normal nasopharynx and oropharynx. - LA Grade A reflux esophagitis with no bleeding. Rule out Travis's esophagus. Biopsied. - Normal stomach. Biopsied. - Normal examined duodenum. Recommendation: - Await pathology results. - Return to my office PRN. Procedure Code(s): --- Professional --- 75037, Esophagogastroduodenoscopy, flexible, transoral; with biopsy, single or multiple Diagnosis Code(s): --- Professional --- K21.00, Gastro-esophageal reflux disease with esophagitis, without bleeding CPT copyright 2022 [employer]. All rights reserved. The codes documented in this report are preliminary and upon mobility manager review may be revised to meet current compliance requirements. DO Liz Sylvester DO 11/16/2024 10:43:35 AM Number of Addenda: 0 Note Initiated On: 11/16/2024 10:20 AM Procedure Note Liz Kinsey DO - 11/16/2024 [facility] Patient Name: Trent Antonio Procedure Date No Time: 11/16/2024 CSN : [id number] Date of : 1960 Admit Type: Outpatient Age: 64 Room: [place] [address] Gender: Female Note Status: Finalized Attending MD: Liz Kinsey DO, Procedure: Upper GI endoscopy Indications: Gastro-esophageal reflux disease Providers: Liz Kinsey DO Referring MD: Liz Kinsey DO Medicines: Propofol per Anesthesia Complications: No immediate complications. Procedure: After obtaining informed consent, the endoscope was passed under direct vision. Throughout theprocedure, the patient's blood pressure, pulse, and oxygen saturations were monitored continuously. TheOLYMPUS GIF-HQ190 #[id number] ADULT GASTROSCOPE was introduced through the mouth, and advanced to the fourth partof duodenum. The upper GI endoscopy was accomplished without difficulty. The patient tolerated the procedure well. Findings: The nasopharynx and oropharynx were normal. LA Grade A (one or more mucosal breaks less than 5 mm, not extending between tops of 2 mucosal folds) esophagitis with no bleeding wasfound 35 cm from the incisors. Biopsies were taken with a cold forceps for histology. The entire examined stomach was normal. Biopsies were taken with acold forceps for histology. The examined duodenum was normal. Estimated Blood Loss: Estimated blood loss was minimal. Impression: - Normal nasopharynx and oropharynx. - LA Grade A reflux esophagitis with no bleeding.Rule out Travis's esophagus. Biopsied. - Normal stomach. Biopsied. - Normal examined duodenum. Recommendation: - Await pathology results. - Return to my office PRN. Procedure Code(s): --- Professional --- 40972, Esophagogastroduodenoscopy, flexible, transoral; with biopsy, single or multiple Diagnosis Code(s): --- Professional --- K21.00, Gastro-esophageal reflux disease with esophagitis, without bleeding CPT copyright 2022 [employer]. All rights reserved. The codes documented in this report are preliminary and upon mobility manager reviewmay be revised to meet current compliance requirements. DO Liz Sylvester, 11/16/2024 10:43:35 AM Number of Addenda: 0 Note Initiated On: 11/16/2024 10:20 AM us Liz Kinsey DO GI PROCEDURE ORDERABLES Fin al Result PM CARDIOVASCULAR * EGD Report (11/16/2024 8:36 AM EDT) Narrative SYSTEMGENERATED, DOCUMENTATION - 11/16/2024 8:36 AM EDT This order has been auto-finalized for image and report archival in PACs. *For full report details, please reach out to your physician. This image is visible to you in MyChart.* Liz Kinsey DO IMG OR IMG ORDERABLES Final Result * High risk HPV w/hector (06/24/2020 10:32 AM EST) Hpv specimen type ThinPrep 06/24/2020 5:15 PM EST [facility] Hpv 16 Negative Negative^N egative 06/26/2020 2:14 PM EST [facility] Hpv 18 Negative Negative^N egative 06/26/2020 2:14 PM EST [facility] Other high risk hpv Negative Negative^N egative 06/26/2020 2:14 PM EST [facility] Comment: HPV types 31,33,35,39,45,52,56,58,59,66 and 68 DNA were undetectable. Serum / Unknown 06/24/2020 1 0:32 AM EST 06/24/2020 5:18 PM EST Lindsey Ríos APRN-CNM LAB BLOOD ORDERABLES Fin al Result [facility] [address] [place] [address] [facility] [address] [place] [address] from Last 3 Months or Most Recently Relevant to Health Maintenance Insurance [employer] MEDICARE Care Teams Battery Assembler Relationship Specialty Start Date End Date Nagi Saxena Jr., [address] [place] [address] PCP - General Internal Medicine 06/10/17
--- OUTSIDE RECORDS SUMMARY | 2025-02-15 07:56 | XMS_ITS | Encounter Summary ---
Author Organization [facility] Address [address] [place] [address] Care Team Providers Care Packaging Assembler Name Role Phone Nagi Saxena MD Primary Care Provider [phone] Encounter Details Date Type Department Care Team (Late st Contact Info) Description 12/26/2022 Abstract [facility] [address] [place] [phone] Elmer Esteban, PT [address] [place] [address] Social History Tobacco Use Types Packs/Day Years Used Date Smoking Tobacco: Never Tobacco Cessation:Counseling Given: Not Answered [...] AM EDT Sexual Orientation Not on file documented as of this encounter Plan of Treatment Upcoming Encounters Date Type Department Care Team (Late st Contact Info) Description 06/28/2025 11:00 AM EST Office Visit [facility] [address] [facility] [address] [place] [phone] Amparo Rodgers MD [address] [facility] [address] [place] [address] documented as of this encounter Visit Diagnoses Not on filedocumented in this encounter Care Teams Packaging Assembler Relationship Specialty Start Date End Date Nagi Saxena MD [address] [place], [place] [phone] PCP - General Internal Medicine 01/12/23 documented as of this encounter
--- OUTSIDE RECORDS SUMMARY | 2025-02-15 07:56 | XMS_ITS | Encounter Summary ---
Author Organization [facility] Address [address] [place] [address] Care Team Providers Care Wire Bender Name Role Phone Nagi Saxena MD Primary Care Provider Encounter Details Date Type Department Care Team (Late Contact Info) Description 02/17/2023 Abstract [facility] [address] [facility] [address] [place] [address] Amparo Rodgers MD [address] [facility] [address] [place], [place] [id number] Social History Tobacco Use Types Packs/Day Years Used Date Smoking Tobacco: Never Smokeless Tobacco: Never Alcohol Use Standard Drinks/Week Comments [...] suspected to have Coronavirus/COVID-19? No / Unsure 02/16/2023 8:23 AM EDT documented as of this encounter Plan of Treatment Upcoming Encounters Date Type Department Care Team (Late Contact Info) Description 06/28/2025 11:00 AM EST Office Visit [facility] [address] [facility] [address] [place] [address] Amparo Rodgers MD [address] [address] documented as of this encounter Visit Diagnoses Not on filedocumented in this encounter Care Teams Wire Bender Relationship Specialty Start Date End Date Nagi Saxena MD [address] [place] [address] PCP - General Internal Medicine 01/12/23 documented as of this encounter
--- OUTSIDE RECORDS SUMMARY | 2025-02-15 08:05 | XMS_ITS | CCD ---
Author Organization [facility] Care Team Providers Care Book Binder Name Role Phone CHRISTINA KELSEY Unavailable Unavailable VERO WEAVER Unavailable Unavailable CHRISTINA KELSEY Unavailable Unavailable TAE EMMANUEL Unavailable Unavailable Valone, Nagi Owusu Unavailable Unavailabl e OWEN, DR PHAM Admitting Unavailable HALADAY, DR PHAM Attending Unavailable VALONE, DR CARREON Primary Care Unavailable HALADAY, DR PHAM Consulting Unavailable HALADAY, DR PHAM Admitting Unavailable HALADAY, DR PHAM Attending Unavailable VALONE, DR CARREON Primary Care Unavailable OWEN, DR PHAM Consulting Unavailable Nagi Acuña MD Primary Care Provider Hemanth Trent DO, Charles L Primary Care Provider Hemanth Trent, Nagi SELLERS Primary Care Provider YESI VARGAS Attending Unavailable ARLETONE NAGI AN Referring Unavailable VALONE JR, NAGI Roberts Primary Care Unavailable CARLOS PATRICIO Referring Unavailable ARLETONE NAGI AN Primary Care Unavailable ROCHELLE MAZARIEGOS Admitting Unavailable ROCHELLE MAZARIEGOS Attending Unavailable ROCHELLE MAZARIEGOS Referring Unavailable VALONE NAGI AN Primary Care Unavailable VALONE NAGI AN Referring Unavailable VALONE JR, NAGI Roberts Primary Care Unavailable VALONE NAGI AN Referring Unavailable VALONE JR NAGI Alejandra Primary Care Unavailable LUIS PHILLIPS Attending Unavailable LAURA LOPEZ Attending Unavailable LUIS PHILLIPS Referring Unavailable JR. YAN GEORGE C Attending Unavaila CARLOS Georges Attending Unavailable CARLOS PATRICIO Attending Unavailable CARLOS PATRICIO Attending Unavailable LUIS RODGERS Attending Unavailable Allergies Allergy Classification Reported Allergen(s) Allergy Type Date of Onset Reaction(s) Facility (1 source) No Known Medication Allergies; Translations: [No Known Medication Allergies] Propensity to adverse reactions to drug (disorder) [facility] Repository Medications Current Medications Medication Drug Class(es) Dates Sig (Normalized) Sig (Original) acetaminophen 325 mg / HYDROcodone bitartrate 5 mg oral tablet (1 source) Opioid Agonist Start: 5 End: 5 take 1 tablet by mouth every six hours for pain HYDROcodone-acetamino phen ([place]) 5-325 MG tablet Indications: Acute post-operative pain Take 1 tablet by mouth every 6 (six) hours if needed for severe pain for up to 3 days 12 tablet 11/27/2024 11/30/2024 Active cholecalciferol 0.025 mg oral capsule (4 sources) Vitamin D take 1 capsule by mouth in the morning cholecalciferol, vitamin D3, 25 mcg (1,000 unit) capsule Take 1 capsule (1,000 Units total) by mouth in the morning. Active efinaconazole 100 mg/ml topical solution (12 sources) Azole Antifungal End: 4 Efinaconazole 10 % solution Apply topically. 06/29/2024 Discontinued esomeprazole 40 mg delayed release oral capsule (2 sources) Proton Pump Inhibitor take 1 capsule by mouth once daily before breakfast esomeprazole (NexIUM) 40 mg capsule Take 1 capsule (40 mg total) by mouth every morning before breakfast. Active famotidine 40 mg oral tablet (2 sources) Histamine-2 Receptor Antagonist take 1 tablet by mouth in the morning famotidine (PEPCID) 40 mg tablet Take 1 tablet (40 mg total) by mouth in the morning. Active hydroxychloroquine sulfate 200 mg oral tablet (20 sources) Antimalarial, Antirheumatic Agent Start: 7 take 1 tablet by mouth in the morning hydroxychloroquine (PLAQUENIL) 200 mg tablet Take 1 tablet (200 mg total) by mouth in the morning. 11 06/03/2017 Active loratadine 10 mg oral tablet (20 sources) take 1 tablet by mouth in the morning loratadine (Claritin) 10 MG tablet Take 10 mg by mouth in the morning. Active meloxicam 15 mg oral tablet (9 sources) Nonsteroidal Anti-inflammatory Drug Start: 4 End: 4 take 1 tablet by mouth in the morning meloxicam (Mobic) 15 MG tablet Indications: Achilles tendinitis of left lower extremity Take 1 tablet (15 mg) by mouth in the morning. 90 tablet 0 08/11/2023 11/09/2023 Active methylPREDNISolone (12 sources) Corticosteroid Start: 4 End: 4 methylPREDNISolone (Medrol Dospak) 4 MG tablets Indications: [...] succinate 50 mg extended release oral tablet (20 sources) beta-Adrenergic Amish Start: 09-03-2017 take 1 [...] day at the same time. Active Multiple Vitamin (multivitamin) tablet (10 sources) take 1 tablet by melissa th once daily Multiple Vitamin (multivitamin) tablet Take 1 tablet by mouth Daily Vitamin D Active Multiple Vitamins-Minerals (MULTIVITAMIN ADULT, MINERALS, PO) (20 sources) Multiple Vitamin s-Minerals (MULTIVITAMIN ADULT, MINERALS, PO) Multivitamin Active Multiple Vitamin s-Minerals (MULTIVITAMIN ADULT, MINERALS, PO) Multivitamin 0 Active kmyxaihy-rcmk-VX-calcium &mi ns (THERAGRAN-M) 9 mg iron-400 mcg tablet (2 sources) nvgbbhih-iplw-DL -calcium &mins (THERAGRAN-M) 9 mg iron-400 mcg tablet Take 1 tablet by mouth in the morning. Active UNABLE TO FIND (4 sources) take 1 tablet by mouth in the morning UNABLE TO FIND Take 1 tablet by mouth in the morning. Vitamin Code B. Active take 1 drop(s) by mouth in the m orning UNABLE TO FIND Take 1 drop by mouth in the morning. Ultimate Mineral Supplement. Active Completed/Discontinued Medications Medication Drug Class(es) Dates Sig (Normalized) Sig (Original) ascorbic acid 500 mg oral tablet (3 sources) Vitamin C End: 11-07-2024 take 1 tablet by mouth once daily ascorbic acid (VITAMIN C) 500 mg tablet Take 500 mg by mouth daily. 11/07/2024 Discontinued (Patient Stopped On Own) Calcium Carbonate (3 sources) End: 11-07-2024 take 1 tablet by mouth in the morning CALCIUM CARBONATE (CALTRATE 600 ORAL) Take 1 tablet by mouth in the morning. 11/07/2024 Discontinued (Patient Stopped On Own) take 1 tablet by mouth in the mo rning CALCIUM CARBONATE (CALTRATE 600 ORAL) Take 1 tablet by mouth in the morning. Active fluocinonide 0.5 mg/ml topical solution (12 sources) Corticosteroid Start: 06-29-2024 End: 11-14-2024 fluocinonide (Lidex) 0.05 % external solution Indications: Other pruritus Apply to affected areas on the scalp, up to twice a day when flared, 30 day supply 60 mL 11 06/29/2024 11/14/2024 Discontinued (Therapy completed) MULTIVIT 75-MAIFEOVM-YTF-FRIT MAKER M ORAL (3 sources) End: 11-07-2024 take 2 tablets by mouth in the morning MULTIVIT 45-EGVMTBVT-BSB-CHR OM ORAL Take 2 tablets by mouth in the morning. 11/07/2024 Discontinued (Patient Stopped On Own) take 2 tablets by mo ut in the morning MULTIVIT 88-VUMPAQZL-ILW-CHROM ORAL Take 2 tablets by mouth in the morning. Active Problems Active Problems Problem Classification Problem Date Documented Date Episodic/Chronic Abdominal pain (1 source) Right upper quadrant pain; Translations: [Right upper quadrant pain] 11-07-2024 Episodic Cardiac dysrhythmias (20 sources) Irregular heart beat; Translations: [Cardiac arrhythmia, unspecified] Onset: 11-05-2017 01-13-2023 Chronic Esophageal disorders (3 sources) Gastroesophageal reflux disease; Translations: [Gastro-esophageal reflux disease without esophagitis] Onset: 11-16-2024 11-07-2024 Chronic Immunizations and screening for infectious disease (4 sources) Raised antibody titer; Translations: [RAISED ANTIBODY TITER] Onset: 12-16-2022 Episodic Osteoarthritis (20 sources) Arthritis; Translations: [Unspecified osteoarthritis, unspecified site] Onset: 06-16-2018 01-13-2023 Chronic Other acquired deformities (2 sources) Equinus contracture of the ankle; Translations: [Contracture, left ankle] 09-22-2023 Chronic Other connective tissue disease (5 sources) Muscle weakness of upper limb; Translations: [Other symptoms and signs involving the musculoskeletal system] 09-14-2024 Episodic Other connective tissue disease (5 sources) Pain in right arm; Translations: [Pain in right arm] 09-14-2024 Episodic Other connective tissue disease (5 sources) Pain in left arm; Translations: [Pain in left arm] 09-14-2024 Episodic Other inflammatory condition of skin (2 sources) Itching of skin; Translations: [Other pruritus] 06-29-2024 Episodic Other liver diseases (1 source) Nonspecific elevation of levels of transaminase and lactic acid dehydrogenase [LDH]; Translations: [Nonspecific elevation of levels of transaminase and lactic acid dehydrogenase (ldh)] Onset: 11-05-2017 Episodic Other nervous system disorders (20 sources) Carpal tunnel syndrome of right wrist; Translations: [Carpal tunnel syndrome, right upper limb] Onset: 01-13-2023 01-13-2023 Chronic Other nervous system disorders (2 sources) Bilateral carpal tunnel syndrome; Translations: [Carpal tunnel syndrome, bilateral upper limbs] 10-17-2024 Chronic Other nervous system disorders (2 sources) Notalgia paresthetica; Translations: [Paresthesia of skin] 06-29-2024 Episodic Other nervous system disorders (5 sources) Numbness; Translations: [Anesthesia of skin] 09-14-2024 Episodic Other nervous system disorders (2 sources) Paresthesia of hand ; Translations: [Anesthesia of skin] 10-18-2024 Episodic Other nervous system disorders (1 source) Acute postoperative pain; Translations: [Other acute postprocedural pain] 11-27-2024 Episodic Other non-traumatic joint disorders (20 sources) Derangement of left shoulder joint; Translations: [Other specific joint derangements of left shoulder, not elsewhere classified] Onset: 01-13-2023 01-13-2023 Chronic Other nutritional; endocrine; and metabolic disorders (20 sources) Obese class I; Translations: [Obesity, unspecified] Onset: 11-05-2017 01-13-2023 Chronic Other screening for suspected conditions (not mental disorders or infectious disease) (3 sources) Abnormal results of liver function studies; Translations: [Patient encounter status] Onset: 06-20-2022 08-07-2024 Episodic Other skin disorders (2 sources) Lentiginosis; Translations: [Other melanin hyperpigmentation] 06-29-2024 Episodic Other skin disorders (2 sources) Seborrheic keratosis; Translations: [Other seborrheic keratosis] 06-29-2024 Episodic Other skin disorders (2 sources) Hyperpigmentation of skin; Translations: [Other specified disorders of pigmentation] 06-29-2024 Episodic Systemic lupus erythematosus and connective tissue disorders (5 sources) Systemic involvement of connective tissue, unspecified; Translations: [SYSTEMIC INVLV CONNECTIVE TISS UNS] Onset: 06-15-2022 Chronic Unclassified (1 source) Esophagitis, unspecified without bleeding; Translations: [Esophagitis, unspecified without bleeding] Onset: 11-16-2024 Past or Other Problems Problem Classification Problem Date Documented Date Episodic/Chronic Mood disorders (4 sources) Mood disorders Onset: 07-05-2023 07-05-2023 Other connective tissue disease (20 sources) Left achilles tendonitis; Translations: [Achilles tendinitis, left leg] Onset: 09-08-2023 09-08-2023 Episodic Other non-traumatic joint disorders (20 sources) Pain in left shoulder; Translations: [Pain in joint, shoulder region] Onset: 01-14-2023 01-14-2023 Episodic Other non-traumatic joint disorders (20 sources) Stiffness of left shoulder; Translations: [Stiffness of left shoulder, not elsewhere classified] Onset: 01-14-2023 01-14-2023 Episodic Residual codes; unclassified (20 sources) History of abdominal hysterectomy; Translations: [Acquired absence of both cervix and uterus] Onset: 06-10-2017 01-13-2023 Episodic Residual codes; unclassified (20 sources) Postprocedural state finding; Translations: [Other specified postprocedural states] Onset: 01-14-2023 01-14-2023 Episodic Residual codes; unclassified (1 source) Asymptomatic menopausal state; Translations: [Asymptomatic menopausal state] Onset: 03-15-2024 Episodic Unclassified (4 sources) Onset: 06-16-2018 06-16-2018 Results Test Name Value Interpretation Reference Range Facility H PYLORI SCREENon 11-16-2024 H. pylori Org specific cx Ql (Li fld) Negative Normal NEG [facility] Comment on above: Performed By: #### 4 4015-6 #### [facility] ([id number]) [address] [place] [address], [address] [place] [address] Surgical Pathologyon 025 Surgical Pathology Normal [facility] Comment on above: Result Comment: [facility] [address] [place] [address] Surgical Pathology Consultation Patient Name:SABIHA JUSTIN:1960 (Age: 64)Gender:FTaken:11/16/2024Reported:11/20/2024Physician(s):Rochelle Mazariegos D.O. ([phone])Copy To: Rec. #:[id number]: #[id number] Final Pathologic Diagnosis 1. Gastric antrum biopsies: Normal gastric corpus mucosa. No inflammation, intestinal metaplasia, dysplasia or H. pylori organisms identified. 2. Distal esophageal biopsies: Unremarkable squamous and gastric fundic mucosa. No active or eosinophilic esophagitis identified. No intestinal metaplasia or dysplasia identified. Report Electronically Signed Out [facility]/11/20/2024Ryan Grewal M.D. Interpretation performed at [facility], [address] [place] [address], License number: [id number]. Clinical History Gastroesophageal reflux. Gross Description 1. Received in formalin labeled NHAN, antrum biopsy , are 2 cervantes feathery tissue bits each 0.2 cm greatest dimension. The specimen is filtered and submitted entirely in a single cassette. (1,ns,[id number], m1) SW 2. Received in formalin labeled DCER, distal esophagus biopsy , are 3 cervantes-hood feathery tissue bits 0.2 cm - 0.3 cm. The specimen is filtered and submitted entirely in a single cassette. (1,ns,[id number], m1) SW [id number] Specimen(s) Received 1: Antrum biopsy 2: Distal esophageal biopsy Fee Codes(s): 1; 39402 2; 76343 BASIC METABOLIC PANLon 11-14 Anion gap [Moles/Vol] 7 mmol/L Normal 5-15 [facility] Comment on above: Performed By: #### C BCA, BMP #### [facility] ([id number]) [address] [place] [address] Calcium [Mass/Vol] 8.8 mg/dL Normal 8.5-10.5 [facility] Comment on above: Performed By: #### C BCA, BMP #### [facility] ([id number]) [address] [place] [address] Chloride [Moles/Vol] 105 mmol/L Normal 98-109 [facility] Comment on above: Performed By: #### C BCA, BMP #### [facility] ([id number]) [address] [place] [address] CO2 [Moles/Vol] 27 mmol/L Normal 22-32 [facility] Comment on above: Performed By: #### C BCA, BMP #### [facility] ([id number]) [address] [address] [place] [address] Creatinine [Mass/Vol] 0.81 mg/dL Normal 0.40-1.00 [facility] Comment on above: Result Comment: METH OD TRACEABLE TO IDMS STANDARD Performed By: #### C BCA, BMP #### [facility] ([id number]) [address] [place] [address] GFR/1.73 sq M.predicted among non-blacks MDRD (S/P/Bld) [Vol rate/Area] 80 mL/min/{1.73_m2} Normal >59 [facility] Comment on above: Result Comment: Reported eGFR is based on the CKD-EPI 2020 equation that does not use a race coefficient. Performed By: #### Sachi DORMAN, BMP #### [facility] ([id number]) [address], [address] [place] [address] Glucose [Mass/Vol] 102 mg/dL High 65-99 [facility] Comment on above: Performed By: #### Sachi DORMAN, BMP #### [facility] ([id number]) [address], [address] [place] [address] Potassium [Moles/Vol] 4.1 mmol/L Normal 3.5-5.0 [facility] Comment on above: Performed By: #### Sachi DORMAN, BMP #### [facility] ([id number]) [address], [address] [place] [address] Sodium [Moles/Vol] 139 mmol/L Normal 134-146 [facility] Comment on above: Performed By: #### Sachi DORMAN, BMP #### [facility] ([id number]) [address], [address] [place] [address] Urea nitrogen [Mass/Vol] 18 mg/dL Normal 5-27 [facility] Comment on above: Performed By: #### Sachi DORMAN, BMP #### [facility] ([id number]) [address], [address] [place] [address] CBC AND AUTO DIFFon 11-15-19 25 ABSOLUTE BASOPHIL 0.1 X10E9/L Normal 0.0-0.2 [facility] Comment on above: Performed By: #### Sachi BCA, BMP #### [facility] ([id number]) [address] [address] [place] [address] ABSOLUTE NEUTROPHIL 4.9 X10E9/L Normal 1.5-6.6 [facility] Comment on above: Performed By: #### Sachi DORMAN, BMP #### [facility] ([id number]) [address], [address] [place] [address] Basophils/100 WBC (Bld) 1.2 % Normal [facility] Comment on above: Performed By: #### C DANDY, BMP #### [facility] ([id number]) [address], [address] [place] [address] Eosinophils (Bld) [#/Vol] 0.2 10*3/uL Normal 0.0-0.4 [facility] Comment on above: Performed By: #### C DANDY, BMP #### [facility] ([id number]) [address], [address] [place] [address] Eosinophils/100 WBC (Bld) 2.0 % Normal [facility] Comment on above: Performed By: #### C DANDY, BMP #### [facility] ([id number]) [address], [address] [place] [address] Erythrocyte distribution width (RBC) [Ratio] 14.5 % Normal 11.5-15.0 [facility] Comment on above: Performed By: #### C DANDY, BMP #### [facility] ([id number]) [address], [address] [place] [address] Hematocrit (Bld) [Volume fraction] 34.8 % Low 35-47 [facility] Comment on above: Performed By: #### C DANDY, BMP #### [facility] ([id number]) [address], [address] [place] [address] Hemoglobin (Bld) [Mass/Vol] 11.6 g/dL Low 11.7-15.5 [facility] Comment on above: Performed By: #### C BCA, BMP #### [facility] ([id number]) [address], [address] [place] [address] Lymphocytes (Bld) [#/Vol] 2.0 10*3/uL Normal 1.0-3.5 [facility] Comment on above: Performed By: #### C DANDY, BMP #### [facility] ([id number]) [address], [address] [place] [address] Lymphocytes/100 WBC (Bld) 24.6 % Normal [facility] Comment on above: Performed By: #### C BCA, BMP #### [facility] ([id number]) [address], [address] [place] [address] MCH (RBC) [Entitic mass] 28.2 pg Normal 27-34 [facility] Comment on above: Performed By: #### C DANDY, BMP #### [facility] ([id number]) [address], [address] [place] [address] MCHC (RBC) [Mass/Vol] 33.2 g/dL Normal 32-36 [facility] Comment on above: Performed By: #### C BCA, BMP #### [facility] ([id number]) [address], [address] [place] [address] MCV (RBC) [Entitic vol] 85 fL Normal 80-100 [facility] Comment on above: Performed By: #### C BCA, BMP #### [facility] ([id number]) [address], [address] [place] [address] Monocytes (Bld) [#/Vol] 0.9 10*3/uL Normal 0-0.9 [facility] Comment on above: Performed By: #### C BCA, BMP #### [facility] ([id number]) [address], [address] [place] [address] Monocytes/100 WBC (Bld) 11.7 % Normal [facility] Comment on above: Performed By: #### C BCA, BMP #### [facility] ([id number]) [address], [address] [place] [address] Neutrophils/100 WBC (Bld) 60.5 % Normal [facility] Comment on above: Performed By: #### Sacih DORMAN, BMP #### [facility] ([id number]) [address] [facility] [address] [place] [address] Platelet mean volume (Bld) [Entitic vol] 7.8 fL Normal 7-12 [facility] Comment on above: Performed By: #### Sachi DORMAN, BMP #### [facility] ([id number]) [address] [address] Platelets (Bld) [#/Vol] 366 10*3/uL Normal 150-450 [facility] Comment on above: Performed By: #### Sachi DORMAN, BMP #### [facility] ([id number]) [address] [address] RBC COUNT 4.09 X10E12/L Normal 3.80-5.20 [facility] Comment on above: Performed By: #### Sachi DORMAN, BMP #### [facility] ([id number]) [address] [address] WBC (Bld) [#/Vol] 8.1 10*3/uL Normal 4.0-11.0 [facility] Comment on above: Performed By: #### Sachi DORMAN, BMP #### [facility] ([id number]) [address] [address] CBC W Auto Differential pane l (Bld)on 11-14-2024 ABSOLUTE BASOPHIL 0.1 [facility] Comment on above: PERFORMED AT [facility] [address] [address] Basophils/100 WBC (Bld) 1.2 % [facility] Eosinophils (Bld) [#/Vol] 0.2 10*3/uL [facility] Eosinophils/100 WBC (Bld) 2 % [facility] Erythrocyte distribution width (RBC) [Ratio] 14.5 % 11.5 - 15.0 % [facility] Hematocrit (Bld) [Volume fraction] 34.8 % Low 35 - 47 % [facility] Hemoglobin (Bld) [Mass/Vol] 11.6 g/dL Low 11.7 - 15.5 g/dL [facility] Interpretation and review of laboratory results Abnormal [facility] Lymphocytes (Bld) [#/Vol] 2 10*3/uL [facility] Lymphocytes/100 WBC (Bld) 24.6 % [facility] MCH (RBC) [Entitic mass] 28.2 pg 27 - 34 pg [facility] MCHC (RBC) [Mass/Vol] 33.2 g/dL 32 - 36 g/dL [facility] MCV (RBC) [Entitic vol] 85 fL 80 - 100 fL [facility] Monocytes (Bld) [#/Vol] 0.9 10*3/uL [facility] Monocytes/100 WBC (Bld) 11.7 % [facility] Neutrophils (Bld) [#/Vol] 4.9 10*3/uL [facility] Neutrophils/100 WBC (Bld) 60.5 % [facility] Platelet mean volume (Bld) [Entitic vol] 7.8 fL 7 - 12 fL [facility] Platelets (Bld) [#/Vol] 366 10*3/uL [facility] RBC (Bld) [#/Vol] 4.09 10*6/uL [facility] WBC corrected for nucl RBC Auto (Bld) [#/Vol] 8.1 [facility] EMG 2 Extremitieson 10-03-19 25 Carpal tunnel bilate rally. Moderate right and minimal left C8 radiculopathies bilaterally which are mild [facility] NVC 11-12 Nerveson 5 Carpal tunnel bilate rally. 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 Computer aided detection was utilized. FINDINGS: There are scattered areas of fibroglandular density. There are no suspicious masses, calcifications, or areas of architectural distortion. IMPRESSION: No mammographic evidence of malignancy. BI-RADS: BI-RADS 1 - Negative RECOMMENDATION: Routine screening mammogram in 1 year. RISK ASSESSMENT: TC Lifetime risk: 4.92%. The patient's reported personal and family medical history was used calculate their Tyrer-zick lifetime risk of malignancy. Scores less than 20% are not considered high risk per ACR guidelines and patient should continue with the above recommendation. Finalized by Pete Mike MD on 09/07/2024 8:17 AM 1 b MAMM 1 YR Normal [facility] DEXA SCAN CENTRAL SKELETALon 03-16-2024 DEXA SCAN [...] Seals MD on 03/16/2024 1:33 PM Normal [facility] C3 and C4 COMPLEMENTon 12-17 Complement C3, Serum 164 mg/dL Normal 82-167 [facility] Comment on above: Performed By: #### C SUITE #### [facility] [address] [place] [address] Dr. Anju Youssef Complement C4, Serum 36 mg/dL Normal 12-38 [facility] Comment on above: Performed By: #### C SUITE #### [facility] [address] [place] [address] Dr. Anju Youssef CBC AUTO DIFFon 12-16-2022 BASO # 0.1 103/ul Normal 0.0-0.1 [facility] Comment on above: Performed By: #### C BC #### [facility] [address] [place] [address] Dr. Anju Youssef Basophils/100 WBC (Bld) 0.9 % Normal 0.2-2.0 [facility] Comment on above: Performed By: #### C BC #### [facility] [address] [place] [address] Dr. Anju Youssef EO # 0.1 103/ul Normal 0.0-0.7 [facility] Comment on above: Performed By: #### C BC #### [facility] [address] [place] [address] Dr. Anju Youssef Eosinophils/100 WBC (Bld) 1.6 % Normal 0.9-7.0 [facility] Comment on above: Performed By: #### C BC #### [facility] [address] [place] [address] Dr. Anju Youssef Erythrocyte distribution width (RBC) [Ratio] 13.6 % Normal 11.0-15.0 [facility] Comment on above: Performed By: #### C BC #### [facility] [address] [address] [address] Anju Youssef Hematocrit (Bld) [Volume fraction] 45.2 % Normal 36.0-48.0 [facility] Comment on above: Performed By: #### C BC #### [facility] [address] [place] [address] Dr. Anju Youssef Hemoglobin (Bld) [Mass/Vol] 14.1 g/dL Normal 12.0-16.0 [facility] Comment on above: Performed By: #### C BC #### [facility] [address] [place] [address] Dr. Anju Youssef IG # 0.03 10e3/ul Normal 0.00-0.03 [facility] Comment on above: Performed By: #### C BC #### [facility] [address] [place] [address] Dr. Anju Youssef IG % 0.4 % Normal 0.0-0.5 [facility] Comment on above: Performed By: #### C BC #### [facility] [address] [place] [address] Dr. Anju Youssef LYMPH # 1.9 103/ul Normal 1.2-3.8 [facility] Comment on above: Performed By: #### C BC #### [facility] [address] [place] [address] Dr. Anju Youssef Lymphocytes/100 WBC (Bld) 24.4 % Normal 20.5-60.0 [facility] Comment on above: Performed By: #### C BC #### [facility] [address] [place] [address] Dr. Anju Youssef MANUAL DIFF REQ NO Normal [facility] Comment on above: Performed By: #### C BC #### [facility] [address] [place] [address] Dr. Anju Youssef MCH (RBC) [Entitic mass] 29.1 pg Normal 26.7-34.0 [facility] Comment on above: Performed By: #### C BC #### [facility] [address] [address] [address] Anju Youssef MCHC (RBC) [Mass/Vol] 31.2 g/dL Normal 29.9-35.2 [facility] Comment on above: Performed By: #### C BC #### [facility] [address] [address] [address] Anju Youssef MCV (RBC) [Entitic vol] 93.2 fL Normal 81.0-99.0 [facility] Comment on above: Performed By: #### C BC #### [facility] [address] [address] [address] Anju Youssef MONO # 0.7 103/ul Normal 0.3-0.8 [facility] Comment on above: Performed By: #### C BC #### [facility] [address] [place] [address] Dr. Anju Youssef Monocytes/100 WBC (Bld) 9.4 % Normal 1.7-12.0 [facility] Comment on above: Performed By: #### C BC #### [facility] [address] [place] [address] Dr. Anju Youssef NEUT # 5.0 103/ul Normal 1.4-6.5 [facility] Comment on above: Performed By: #### C BC #### [facility] [address] [place] [address] Dr. Anju Youssef Neutrophils/100 WBC (Bld) 63.3 % Normal 43.0-75.0 [facility] Comment on above: Performed By: #### C BC #### [facility] [address] [place] [address] Dr. Anju Youssef Platelet mean volume (Bld) [Entitic vol] 9.1 fL Critically low 9.5-13.5 [facility] Comment on above: Performed By: #### C BC #### [facility] [address] [place] [address] Dr. Anju Youssef PLT 340 103/ul Normal 150-450 [facility] Comment on above: Performed By: #### C BC #### [facility] [address] [place] [address] Dr. Anju Youssef RBC 4.85 106/ul Normal 4.20-5.40 [facility] Comment on above: Performed By: #### C BC #### [facility] [address] [place] [address] Dr. Anju Youssef WBC 7.9 103/ul Normal 4.0-11.0 [facility] Comment on above: Performed By: #### C BC #### [facility] [address] [place] [address] Dr. Anju Youssef CREATININEon 12-16-2022 Creatinine [Mass/Vol] 0.73 mg/dL Normal 0.55-1.02 [facility] Comment on above: Performed By: #### C NAKIA #### [facility] [address] [place] [address] Dr. Anju Youssef EGFR-AF CAP[place] VERDEAN >60 Normal >=60 [facility] Comment on above: Performed By: #### C NAKIA #### [facility] [address] [place] [address] Dr. Anju Youssef EGFR-NON AF [place] >60 Normal >=60 [facility] Comment on above: Performed By: #### C NAKIA #### [facility] [address] [place] [address] Dr. Anju [facility] mm/hr Critically high <=30 [facility] Comment on above: Performed By: #### S EDR #### [facility] [address] [place] [address] Dr. Anju Youssef UA RANDOM W/MICROSCOPICon BACTERIA NONE SEEN Normal NONE SEEN [facility] Comment on above: Performed By: #### U AMIC #### [facility] [address] [place] [address] Dr. Anju Youssef Bilirubin Ql (U) Negative Normal NEGATIVE [facility] Comment on above: Performed By: #### U AMIC #### [facility] [address] [place] [address] Dr. Anju Youssef CAST NONE SEEN Normal NONE SEEN [facility] Comment on above: Performed By: #### U AMIC #### [facility] [address] [address] [address] Anju Youssef Clarity (U) CLEAR Normal CLEAR [facility] Comment on above: Performed By: #### U AMIC #### [facility] [address] [address] [address] Anju Youssef Color (U) LT. YELLOW Normal YELLOW [facility] Comment on above: Performed By: #### U AMIC #### [facility] [address] [address] [address] Anju Youssef Crystals LM Nom (Urine sed) NONE SEEN Normal NONE SEEN [facility] Comment on above: Performed By: #### U AMIC #### [facility] [address] [place] [address] Dr. Anju Youssef Epithelial cells LM Ql (Urine sed) RARE Normal NONE SEEN /RARE [facility] Comment on above: Performed By: #### U AMIC #### [facility] [address] [place] [address] Dr. Anju Youssef Glucose Ql (U) Negative Normal NEGATIVE [facility] Comment on above: Performed By: #### U AMIC #### [facility] [address] [address] [address] Anju Youssef Hemoglobin Ql (U) TRACE-INTACT Abnormal NEGATIVE [facility] Comment on above: Performed By: #### U AMIC #### [facility] [address] [address] [address] Anju Youssef Ketones Ql (U) Negative Normal NEGATIVE [facility] Comment on above: Performed By: #### U AMIC #### [facility] [address] [address] [address] Anju Youssef LEUKOCYTES Negative Normal NEGATIVE [facility] Comment on above: Performed By: #### U AMIC #### [facility] [address] [place] [address] Dr. Anju Youssef MUCOUS NONE SEEN Normal NONE SEEN [facility] Comment on above: Performed By: #### U AMIC #### [facility] [address] [place] [address] Dr. Anju Youssef Nitrite Ql (U) Negative Normal NEGATIVE [facility] Comment on above: Performed By: #### U AMIC #### [facility] [address] [place] [address] Dr. Anju Youssef pH (U) 5.5 [pH] Normal 5-9 [facility] Comment on above: Performed By: #### U AMIC #### [facility] [address] [place] [address] Dr. Anju Youssef RBC 0-2 Normal 0-2 [facility] Comment on above: Performed By: #### U AMIC #### [facility] [address] [place] [address] Dr. Anju Youssef SPEC GRAVITY <=1.005 Abnormal 1.005-<=1. 025 [facility] Comment on above: Performed By: #### U AMIC #### [facility] [address] [place] [address] Dr. Anju Youssef UA PROTEIN Negative Normal NEGATIVE/ TRACE [facility] Comment on above: Performed By: #### U AMIC #### [facility] [address] [place] [address] Dr. Anju Youssef Urobilinogen Qn (U) 0.2 {Yun'U}/dL Normal 0.2 - 1.0 [facility] Comment on above: Performed By: #### U AMIC #### [facility] [address] [place] [address] Dr. Anju Youssef WBC 0-2 Abnormal NONE SEEN [facility] Comment on above: Performed By: #### U AMIC #### [facility] [address] [place] [address] Dr. Anju Youssef C3 and C4 COMPLEMENTon 06-16 Complement C3, Serum 175 mg/dL Critically high 82-167 [facility] Comment on above: Performed By: #### C SUITE #### [facility] [address] [place] [address] Dr. Anju Youssef Complement C4, Serum 40 mg/dL Critically high 12-38 [facility] Comment on above: Performed By: #### C SUITE #### [facility] [address] [address] [address] Anju Youssef CBC AUTO DIFFon 06-15-2022 BASO # 0.1 103/ul Normal 0.0-0.1 [facility] Comment on above: Performed By: #### C BC #### [facility] [address] [address] [address] Anju Youssef Basophils/100 WBC (Bld) 0.6 % Normal 0.2-2.0 [facility] Comment on above: Performed By: #### C BC #### [facility] [address] [place] [address] Dr. Anju Youssef EO # 0.1 103/ul Normal 0.0-0.7 [facility] Comment on above: Performed By: #### C BC #### [facility] [address] [place] [address] Dr. Anju Youssef Eosinophils/100 WBC (Bld) 1.3 % Normal 0.9-7.0 [facility] Comment on above: Performed By: #### C BC #### [facility] [address] [place] [address] Dr. Anju Youssef Erythrocyte distribution width (RBC) [Ratio] 14.1 % Normal 11.0-15.0 [facility] Comment on above: Performed By: #### C BC #### [facility] [address] [place] [address] Dr. Anju Youssef Hematocrit (Bld) [Volume fraction] 39.8 % Normal 36.0-48.0 [facility] Comment on above: Performed By: #### C BC #### [facility] [address] [place] [address] Dr. Anju Youssef Hemoglobin (Bld) [Mass/Vol] 12.8 g/dL Normal 12.0-16.0 [facility] Comment on above: Performed By: #### C BC #### [facility] [address] [place] [address] Dr. Anju Youssef IG # 0.03 10e3/ul Normal 0.00-0.03 [facility] Comment on above: Performed By: #### C BC #### [facility] [address] [place] [address] Dr. Anju Youssef IG % 0.3 % Normal 0.0-0.5 [facility] Comment on above: Performed By: #### C BC #### [facility] [address] [place] [address] Dr. Anju Youssef LYMPH # 2.2 103/ul Normal 1.2-3.8 [facility] Comment on above: Performed By: #### C BC #### [facility] [address] [place] [address] Dr. Anju Youssef Lymphocytes/100 WBC (Bld) 23.1 % Normal 20.5-60.0 [facility] Comment on above: Performed By: #### C BC #### [facility] [address] [place] [address] Dr. Anju Youssef MANUAL DIFF REQ NO Normal [facility] Comment on above: Performed By: #### C BC #### [facility] [address] [place] [address] Dr. Anju Youssef MCH (RBC) [Entitic mass] 28.7 pg Normal 26.7-34.0 [facility] Comment on above: Performed By: #### C BC #### [facility] [address] [place] [address] Dr. Anju Youssef MCHC (RBC) [Mass/Vol] 32.2 g/dL Normal 29.9-35.2 [facility] Comment on above: Performed By: #### C BC #### [facility] [address] [place] [address] Dr. Anju Youssef MCV (RBC) [Entitic vol] 89.2 fL Normal 81.0-99.0 [facility] Comment on above: Performed By: #### C BC #### [facility] [address] [place] [address] Dr. Anju Youssef MONO # 0.7 103/ul Normal 0.3-0.8 [facility] Comment on above: Performed By: #### C BC #### [facility] [address] [place] [address] Dr. Anju Youssef Monocytes/100 WBC (Bld) 7.9 % Normal 1.7-12.0 [facility] Comment on above: Performed By: #### C BC #### [facility] [address] [place] [address] Dr. Anju Youssef NEUT # 6.2 103/ul Normal 1.4-6.5 [facility] Comment on above: Performed By: #### C BC #### [facility] [address] [place] [address] Dr. Anju Youssef Neutrophils/100 WBC (Bld) 66.8 % Normal 43.0-75.0 [facility] Comment on above: Performed By: #### C BC #### [facility] [address] [place] [address] Dr. Anju Youssef Platelet mean volume (Bld) [Entitic vol] 8.9 fL Critically low 9.5-13.5 [facility] Comment on above: Performed By: #### C BC #### [facility] [address] [place] [address] Dr. Anju Youssef PLT 432 103/ul Normal 150-450 [facility] Comment on above: Performed By: #### C BC #### [facility] [address] [place] [address] Dr. Anju Youssef RBC 4.46 106/ul Normal 4.20-5.40 [facility] Comment on above: Performed By: #### C BC #### [facility] [address] [place] [address] Dr. Anju Youssef WBC 9.3 103/ul Normal 4.0-11.0 [facility] Comment on above: Performed By: #### C BC #### [facility] [address] [place] [address] Dr. Anju Youssef CREATININEon 06-15-2022 Creatinine [Mass/Vol] 0.68 mg/dL Normal 0.55-1.02 [facility] Comment on above: Performed By: #### MIYA PEACE #### [facility] [address] [place] [address] Dr. Anju Youssef EGFR-AF [place] >60 Normal >=60 [facility] Comment on above: Performed By: #### L SAGAR CREA #### [facility] [address] [place] [address] Dr. Anju Youssef EGFR-NON AF [place] >60 Normal >=60 [facility] Comment on above: Performed By: #### L SAGAR CREA #### [facility] [address] [place] [address] Dr. Anju Youssef LIVER PROFILEon 06-15-2022 Albumin [Mass/Vol] 3.8 g/dL Normal 3.4-5.0 [facility] Comment on above: Performed By: #### L SAGAR CREA #### [facility] [address] [place] [address] Dr. Anju Youssef Albumin/Globulin [Mass ratio] 0.9 {ratio} Normal [facility] Comment on above: Performed By: #### L SAGAR CREA #### [facility] [address] [place] [address] Dr. Anju Youssef ALP [Catalytic activity/Vol] 117 U/L Critically high 46-116 [facility] Comment on above: Performed By: #### Alejandra KEITH CREA #### [facility] [address] [place] [address] Dr. Anju Youssef ALT [Catalytic activity/Vol] 34 U/L Normal 14-59 [facility] Comment on above: Performed By: #### L SAGAR CREA #### [facility] [address] [place] [address] Dr. Anju Youssef AST [Catalytic activity/Vol] 17 U/L Normal 15-37 [facility] Comment on above: Performed By: #### L SAGAR CREA #### [facility] [address] [place] [address] Dr. Anju Youssef BILI, CONJUGATED 0.1 mg/dL Normal 0.0-0.2 [facility] Comment on above: Performed By: #### L SAGAR CREA #### [facility] [address] [place] [address] Dr. Anju Youssef Bilirubin [Mass/Vol] 0.3 mg/dL Normal 0.2-1.0 [facility] Comment on above: Performed By: #### L SAGAR CREA #### [facility] [address] [place] [address] Dr. Anju Youssef Globulin (S) [Mass/Vol] 4.4 g/dL Normal [facility] Comment on above: Performed By: #### L SAGAR CREA #### [facility] [address] [place] [address] Dr. Anju Youssef Protein [Mass/Vol] 8.2 g/dL Normal 6.4-8.2 [facility] Comment on above: Performed By: #### L SAGAR CREA #### [facility] [address] [place] [address] Dr. Anju Youssef SED RATE [facility] 2021 SED RATE 48 mm/hr Critically high <=30 [facility] Comment on above: Performed By: #### L SAGAR CREA #### [facility] [address] [place] [address] Dr. Anju Youssef UA RANDOM W/MICROSCOPICon BACTERIA TRACE Abnormal NONE SEEN [facility] Comment on above: Performed By: #### U AMIC #### [facility] [address] [place] [address] Dr. Anju Youssef Bilirubin Ql (U) Negative Normal NEGATIVE [facility] Comment on above: Performed By: #### U AMIC #### [facility] [address] [place] [address] Dr. Anju Youssef CAST NONE SEEN Normal NONE SEEN [facility] Comment on above: Performed By: #### U AMIC #### [facility] [address] [place] [address] Dr. Anju Youssef Clarity (U) CLEAR Normal CLEAR [facility] Comment on above: Performed By: #### U AMIC #### [facility] [address] [place] [address] Dr. Anju Youssef Color (U) LT. YELLOW Normal YELLOW [facility] Comment on above: Performed By: #### U AMIC #### [facility] Laboratory [address] [address] [address] Anju Youssef Crystals LM Nom (Urine sed) NONE SEEN Normal NONE SEEN The [facility] Comment on above: Performed By: #### U AMIC #### [facility] Laboratory [address] [address] [address] Anju Youssef Epithelial cells LM Ql (Urine sed) RARE Normal NONE SEEN /RARE [facility] Comment on above: Performed By: #### U AMIC #### [facility] Laboratory [address] [address] [address] Anju Youssef Glucose Ql (U) Negative Normal NEGATIVE [facility] Comment on above: Performed By: #### U AMIC #### [facility] Laboratory [address] [address] [address] Anju Youssef Hemoglobin Ql (U) TRACE-LYSED Abnormal NEGATIVE [facility] Comment on above: Performed By: #### U AMIC #### [facility] Laboratory [address] [address] [address] Anju Youssef Ketones Ql (U) Negative Normal NEGATIVE [facility] Comment on above: Performed By: #### U AMIC #### [facility] Laboratory [address] [address] [address] Anju Youssef LEUKOCYTES Negative Normal NEGATIVE The [facility] Comment on above: Performed By: #### U AMIC #### [facility] Laboratory [address] [address] [address] Anju Youssef MUCOUS NONE SEEN Normal NONE SEEN [facility] Comment on above: Performed By: #### U AMIC #### [facility] Laboratory [address] [address] [address] Anju Youssef Nitrite Ql (U) Negative Normal NEGATIVE [facility] Comment on above: Performed By: #### U AMIC #### [facility] Laboratory [address] [address] [address] Anju Youssef pH (U) 5.5 [pH] Normal 5-9 [facility] Comment on above: Performed By: #### U AMIC #### [facility] Laboratory [address] [address] [address] Anju Youssef RBC 0-2 Normal 0-2 [facility] Comment on above: Performed By: #### U AMIC #### [facility] Laboratory [address] [address] [address] Anju Youssef SPEC GRAVITY 1.020 Normal 1.005-<=1. 025 [facility] Comment on above: Performed By: #### U AMIC #### [facility] Laboratory [address] [address] [address] Anju Youssef UA PROTEIN Negative Normal NEGATIVE/ TRACE [facility] Comment on above: Performed By: #### U AMIC #### [facility] Laboratory [address] [place] [address] Dr. Anju Youssef Urobilinogen Qn (U) 0.2 {Yun'U}/dL Normal 0.2 - 1.0 [facility] Comment on above: Performed By: #### U AMIC #### [facility] Laboratory [address] [place] [address] Dr. Anju Youssef WBC 0-2 Abnormal NONE SEEN The [facility] Comment on above: Performed By: #### U AMIC #### [facility] Laboratory [address] [place] [address] Dr. Anju Youssef Otolaryngology Consultationo n 07-15-2018 [...] No qualifying data available.Electronically signed by Tae Emmanuel MD 07/15/18 10:44 EST Normal [facility] ANAon 11-05-2017 SELVIN by EIA 2.3 OD Ratio Normal [facility] Comment on above: Result Comment: OD R atio is interpreted as follows:Negative <1.0Positive >=1.0 Performed By: #### A AT, HFP, CERULO, SMOOTH, ROMULO, ANAS ####[facility] [place], [place] [phone] SELVIN by EIA, Qual Positive Critically abnormal Negative [facility] Comment on above: Result Comment: Resu lts are to be used as an aid to diagnosis. Confirmation testing for specific antibodies should be run if a positive assay is obtained. A positive result suggests certain diseases and should be confirmed by clinical findings. Performed By: #### A AT, HFP, CERULO, SMOOTH, ROMULO, ANAS ####[facility] [address]CWest [place], [place] [phone] Alpha 1 antitrypsinon 2017 Alpha 1 antitrypsin 141 mg/dL Normal 90-200 [facility] Comment on above: Performed By: #### A AT, HFP, CERULO, SMOOTH, ROMULO, ANAS ####[facility] [address]CWest [place], [place] [phone] CNOVon 11-05-2017 CNOV Office Visit (GASTA5) SABIHA RIDDLE ([id number]) 1960 FDate Time Provider Department11/05/17 2:00 PM CHRISTINA KELSEY GASTA5 During your visit today, we recorded the following information about you: Temperature Pulse Blood pressure Weight 98 degrees 84/minute 144/79 86.2 kg Height 1.676 mMpushpa Kelsey MD PhD 11/07/2017 10:42 AM SignedPatient is a 57 year old female who was referred byNagi Acuña Jr, [id number] [phone] - [phone] - faxfor evaluation and treatment of an elevated ALT. A copy of this visit will besent to the referring physician via the shared medical record. I havepersonally interviewed and examined this patient.Patient reports that she has rheumatoid arthritis of the hands. 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 Has [...] fatty liver however.3. Will send results by mail.Christina Kelsey MD PhDReferring Provider: VERO WEAVER [[id number]]Allergies As of Date: 11/05/2017(No Known Allergies)Date Reviewed: Never ReviewedReason for Visit: Consult [173] Cmt: follow upPrimary Visit Diagnosis:Elevated transaminase level [R74.0] Other Visit Diagnoses:S/P tubal ligation [Z98.51] S/P TEZ (total abdominal hysterectomy) [Z90.710] H/O section [Z98.891] Comment:4 C section Obesity (BMI 30.0-34.9) [E66.9] Irregular heart beat [I49.9] Comment:takes metoprololOrder(s):SMOOTH MUSCLE AB PNL SCRN [SQSMOOTH] Order #: [id number] FUTURE MITOCHONDRIAL AB PNL SCRN [SQMITO] Order #: [id number] FUTURE KGWLG-9-[id number] BL [SQAAT] Order #: [id number] FUTURE SELVIN BLOOD [SQANAS] Order #: [id number] FUTURE CERULOPLASMIN BLD [SQCERULO] Order #: [id number] FUTURE HEPATIC FUNCTION PNL [SQHFP] Order #: [id number] FUTURE HEP REMOTE PANEL BL [SQHREMOP] Order #: [id number] FUTURE US ABD RT UPPER QUADRANT [4353218] Order #: [id number] FUTUREPrescriptions as of 11/05/2017 Sig: SULFAMETHOXAZOLE 800 [...] SULFAMETHOXAZOLE 800 MG-TRIMETHOPRIM 160 MG TABLET >> Alexei Kilgore MA 11/05/2017 1:31 PM >> [facility] WedNov 05, 2017 1:31 PM Received from: External Pharmacy METHYLPREDNISOLONE 4 MG TABLETS IN A DOSE PACK >> Alexei Kilgore MA 11/05/2017 1:31 PM >> [facility] WedNov 05, 2017 1:31 PM Received from: External Pharmacy METOPROLOL SUCCINATE ER 50 MG TABLET,EXTENDED RELEASE 24 HR >> Alexei Kilgore MA 11/05/2017 1:31 PM >> [facility] WedNov 05, 2017 1:31 PM Received from: External Pharmacy CEPHALEXIN 500 MG CAPSULE >> Alexei Kilgore MA 11/05/2017 1:31 PM >> [facility] WedNov 05, 2017 1:31 PM Received from: External Pharmacy HYDROCODONE 5 MG-ACETAMINOPHEN 325 MG TABLET >> Alexei Kilgore MA 11/05/2017 1:31 PM >> [facility] WedNov 05, 2017 1:31 PM Received from: External Pharmacy HYDROXYCHLOROQUINE 200 MG TABLET >> Alexei Kilgore MA 11/05/2017 1:31 PM >> ALEXEI KILGORE [place] WedNov 05, 2017 1:31 PM Received from: External Pharmacy CHOLECALCIFEROL (VITAMIN D3) 1,000 UNIT CAPSULE >> Alexei Kilgore MA 11/05/2017 1:31 PM >> ALEXEI KILGORE MA WedNov 05, 2017 1:31 PM Received from: [employer] [facility] Received Sig: Take 1,000 Units bymouth daily. ASCORBIC ACID (VITAMIN C) 500 MG TABLET >> Alexei Kilgore MA 11/05/2017 1:31 PM >> ALEXEI KILGORE MA WedNov 05, 2017 1:31 PM Received from: [email or web address] Received Sig: Take 500 mg by mouthdaily. LORATADINE 10 MG TABLET >> Alexei Kilgore MA 11/05/2017 1:31 PM >> ALEXEI KILGORE MA WedNov 05, 2017 1:31 PM Received from: [email or web address] Received Sig: Take 10 mg by mouthdaily. AZITHROMYCIN 250 MG TABLET >> Alexei Kilgore MA 11/05/2017 1:31 PM >> ALEXEI KILGORE MA WedNov 05, 2017 1:31 PM Received from: [email or web address] Received Sig: Take 1 tablet by mouthdaily.Problem List As Of Date 11/05/2017 Noted Resolved S/P tubal ligation [Z98.51] INVALID FOR* S/P TEZ (total abdominal hysterectomy) [Z90.710]INVALID FOR* H/O section [Z98.891] INVALID FOR* Obesity (BMI 30.0-34.9) [E66.9] INVALID FOR* Irregular heart beat [I49.9] INVALID FOR*Follow-up and Disposition History RecordedEncounter Number: [id number] Status:Closed by KISHOR PLAZA, CHRISTINA PHD on 11/07/17 Normal [facility] Ceruloplasminon 11-05-2017 Ceruloplasmin 31 mg/dL Normal 16-45 [facility] Comment on above: Performed By: #### A AT, HFP, CERULO, SMOOTH, ROMULO, ANAS ####[facility] [address]C[place], [place] [phone] Hepatic Functn Panelon 11-05 Alanine aminotransferase (ALT) 39 U/L High 7-38 [facility] Comment on above: Performed By: #### A AT, HFP, CERULO, SMOOTH, ROMULO, ANAS ####[place] [address] [phone] Albumin 4.4 g/dL Normal 3.9-4.9 [facility] Comment on above: Performed By: #### A AT, HFP, CERULO, SMOOTH, ROMULO, ANAS ####[place] [address] [phone] Alkaline phosphatase (ALP) 102 U/L Normal 32-117 [facility] Comment on above: Performed By: #### A AT, HFP, CERULO, SMOOTH, ROMULO, ANAS ####[place] [address] [phone] Aspartate aminotransferase (AST) 29 U/L Normal 13-35 [facility] Comment on above: Performed By: #### A AT, HFP, CERULO, SMOOTH, ROMULO, ANAS ####[place] [address] [phone] Bilirubin (total) 0.3 mg/dL Normal 0.2-1.3 [facility] Comment on above: Performed By: #### A AT, HFP, CERULO, SMOOTH, ROMULO, ANAS ####[address] [address] [phone] Bilirubin,Conjugat ed <0.2 Normal <0.2 [facility] Comment on above: Performed By: #### A AT, HFP, CERULO, SMOOTH, ROMULO, ANAS ####[address] [phone] Protein 8.1 g/dL High 6.3-8.0 [facility] Comment on above: Performed By: #### A AT, HFP, CERULO, SMOOTH, ROMULO, ANAS ####[facility] [address] [place], [place] [phone] Mitochondrial Ab Pnlon 11-05 Mitochondrial Ab Pnl Negative Normal Negative [facility] Comment on above: Result Comment: Norm al range : negative at a 1:20 serum dilution.Corrected on 11/08 AT 1308: Previously reported as ELIZABETH Normal range : negative at a 1:20 serum dilution. Performed By: #### A AT, HFP, CERULO, SMOOTH, ROMULO, ANAS ####[facility] [address] [place], [place] [phone] PROGRESSon 11-05-2017 PROGRESS HNO ID: [id number] thor: Christina Zavalaice: (none)Author Type: PhysicianType: Progress NotesFiled: 11/07/2017 10:42 AMNote Text:Patient is a 57 year old female who was referred byNagi Acuña Jr, [id number] [facility] 419FR[facility] [phone] - [phone] - faxfor evaluation and treatment of an elevated ALT. A copy of this visit willbe sent to the referring physician via the shared medical record. I havepersonally interviewed and examined this patient.Patient reports that she has rheumatoid arthritis of the hands. 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 Has mildly elevated triglyceridesand mildly decreased HDL. BM is 30. These are 4/5 risk factors for fattyliver.PLAN:1. Recommend [employer] B[employer] fish oil 2400mg/1200mg omega 3 - take one aday - recheck TRIG in 3 months.2. Blood work today to check for other common liver conditions. PositiveSMA can be sen ein fatty liver however.3. Will send results by mail.Christina Kelsey MD PhD Normal [facility] Smooth Muscle Ab Pnlon 11-05 Smooth Muscle Ab Pnl Negative Normal Negative [facility] Comment on above: Result Comment: Norm al range : negative at a 1:20 serum dilution. Performed By: #### A AT, HFP, CERULO, SMOOTH, ROMULO, ANAS ####[facility] [place], [place] [phone] Vital Signs Date Time Vital Sign Value Performing Clinician Faci lity 11-14-2024 13:54-0400 Body height 167.6 cm Carlos MORALES Work Phone: [facility] 11-14-2024 13:54-0400 Body mass index (BMI) [Ratio] 29.05 kg/m2 Carlos MORALES Work Phone: [facility] 11-14-2024 13:54-0400 Body weight 81.65 kg Carlos MORALES Work Phone: [facility] 11-07-2024 11:05-0400 Body height 167.6 cm Yesi Vargas BATCH AND FURNACE MANAGER-GUITAR MAKER HAND Work Phone: [facility] 11-07-2024 11:05-0400 Body mass index (BMI) [Ratio] 31.99 kg/m2 Yesi Vargas BATCH AND FURNACE MANAGER-GUITAR MA[employer] HAND Work Phone: [facility] 11-07-2024 11:05-0400 Body weight 89.9 kg Yesi Vargas BATCH AND FURNACE MANAGER-GUITAR MAKER HAND Work Phone: [facility] 11-07-2024 11:05-0400 Diastolic blood pressure 91 mm[Hg] Yesi Vargas BATCH AND FURNACE MANAGER-GUITAR MAKER HAND Work Phone: [facility] 11-07-2024 11:05-0400 Heart rate 95 /min Yesi Vargas BATCH AND FURNACE MANAGER-GUITAR MAKER HAND Work Phone: [facility] [employer] [facility] 11-07-2024 11:05-0400 Systolic blood pressure 160 mm[Hg] Yesi Vargas BATCH AND FURNACE MANAGER-GUITAR MAKER HAND Work Phone: [facility] 09-22-2023 08:58-0500 Body height 167.6 cm Hector Rusher DPM Work Phone: [facility] 09-22-2023 08:58-0500 Body mass index (BMI) [Ratio] 29.05 kg/m2 Hector Rusher DPM Work Phone: [facility] 09-22-2023 08:58-0500 Body weight 81.65 kg Hector Rusher DPM Work Phone: [facility] Healthcare Encounters Encounter Date Encounter Type Care Provider Facility Start: 12-26-2024 End: 12-26-2024 Bamboo flowsheet Carlos MORALES Work Phone: [facility] Start: 12-26-2024 End: 12-26-2024 Bamboo flowsheet Carlos MORALES Work Phone: [facility] Start: 12-26-2024 End: 12-26-2024 Postop follow up visit related to original px Carlos MORALES Work Phone: [facility] Comment on above: S/P carpal tunnel re lease (Primary Dx) Start: 12-26-2024 End: 12-26-2024 ambulatory CARLOS PATRICIO Not Available Start: 12-12-2024 End: 12-12-2024 Bamboo flowsheet Carlos Patricio PA Work Phone: [facility] Start: 12-12-2024 End: 12-12-2024 Bamboo flowsheet Carlos Patricio PA Work Phone: [facility] Start: 12-12-2024 End: 12-12-2024 Postop follow up visit related to original px Carlos MORALES Work Phone: [facility] Comment on above: S/P carpal tunnel re lease (Primary Dx) Start: 12-12-2024 End: 12-12-2024 ambulatory CARLOS PATRICIO Not Available Start: 11-27-2024 End: 11-27-2024 Refill Luis Phillips NP Work Phone: [facility] Comment on above: Acute post-operative pain (Primary Dx) Start: 11-21-2024 End: 11-21-2024 Telephone encounter Arielle Salgado [facility] General Surgery Start: 11-16-2024 End: 11-16-2024 Evaluation and management of inpatient ROCHELLE MAZARIEGOS [facility] Start: 11-14-2024 Encounter for other preprocedural examination CARLOS PATRICIO [facility] Start: 11-14-2024 End: 11-14-2024 Bamboo flowsheet Carlos Patricio PA Work Phone: [facility] Start: 11-14-2024 End: 11-14-2024 Bamboo flowsheet Carlos Briones Sheng MORALES Work Phone: [facility] Start: 11-14-2024 End: 11-14-2024 External Result Encounter Carlos Briones Sheng MORALES Work Phone: [facility] External Department Unsolicited Start: 11-14-2024 End: 11-14-2024 ambulatory CARLOS Anali PATRICIO [facility] Start: 11-14-2024 End: 11-14-2024 Patient encounter procedure Carlos Briones Sheng MORALES Work Phone: [facility] Comment on above: Preop examination Start: 11-14-2024 End: 11-14-2024 Preprocedural examination done Carlos Briones Sheng MORALES Work Phone: [facility] Healthcare Start: 11-07-2024 End: 11-07-2024 Office outpatient new 30 minutes [facility] BATCH AND FURNACE MANAGER-GUITAR MAKER HAND Work Phone: [facility] General Surgery Comment on above: Gastroesophageal ref lux disease, unspecified whether esophagitis present (Primary Dx); RUQ pain Start: 11-07-2024 End: 11-07-2024 ambulatory [facility] Start: 11-06-2024 End: 11-06-2024 Orders Only Carlos Briones Sheng MORALES Work Phone: [facility] Comment on above: Encounter for other preprocedural examination Start: 11-06-2024 End: 11-06-2024 Patient encounter status Carlos Briones Sheng MORALES Work Phone: [facility] Start: 10-18-2024 End: 10-18-2024 Office outpatient visit 25 minutes Jr. Belinda Yan DO Work Phone: [facility] Comment on above: Bilateral carpal mark yesi syndrome (Primary Dx); Numbness and tingling in right hand Start: 10-18-2024 End: 10-18-2024 ambulatory BELINDA TRENT Not Available Start: 10-03-2024 End: 10-03-2024 Bamboo flowsheet Laura Lopez DO Work Phone: [facility] Start: 10-03-2024 End: 10-03-2024 Bamboo flowsheet Laura Lopez DO Work Phone: [facility] Start: 10-03-2024 End: 10-03-2024 Patient encounter procedure Laura Lopez DO Work Phone: [facility] Comment on above: Arm weakness; Numbness; Arm pain, right; Arm pain, left Start: 10-03-2024 End: 10-03-2024 ambulatory JONHUEY LOPEZ Not Available Start: 09-14-2024 End: 09-14-2024 Bamboo flowsheet Luis Phillips NP Work Phone: [facility] Start: 09-14-2024 End: 09-14-2024 Bamboo flowsheet Luis Phillips PERSONAL CAREGIVER Work Phone: [facility] Start: 09-14-2024 End: 09-14-2024 Office outpatient visit 15 minutes Luis Phillips NP Work Phone: [facility] Comment on above: Arm weakness; Numbness; Arm pain, right; Arm pain, left Start: 09-14-2024 End: 09-14-2024 ambulatory LUIS PHILLIPS Not Available Start: 09-06-2024 End: 09-06-2024 ambulatory NAGI ACUÑA [facility] Start: 08-07-2024 End: 08-07-2024 Telephone encounter Ronna Lauren APRN-GUITAR MAKER HAND Work Phone: [facility] Obstetrics/Gynecolog y Start: 06-29-2024 End: 06-29-2024 Bamboo flowsheet Luis Rodgers MD Work Phone: [facility] Start: 06-29-2024 End: 06-29-2024 Bamboo flowsheet Luis Rodgers MD Work Phone: [facility] Start: 06-29-2024 End: 06-29-2024 ambulatory LUIS RODGERS Not Available Start: 06-29-2024 End: 06-29-2024 Office outpatient visit 25 minutes Luis Rodgers MD Work Phone: [facility] Comment on above: Seborrheic keratosis (Primary Dx); Other pruritus; Notalgia paresthetica; Lentigines; Hyperpigmentation due to hydroxychloroquine therapy Start: 03-15-2024 End: 03-15-2024 ambulatory NAGI NICEZION [facility] Start: 09-22-2023 Bamboo flowsheet Hector Ramos her DPM Work Phone: [facility] Start: 09-22-2023 Bamboo flowsheet Hector Ramos her DPM Work Phone: [facility] Start: 09-22-2023 End: 09-22-2023 Office outpatient visit 15 minutes Hector Garcia DPM Work Phone: [facility] Comment on above: Achilles tendinitis of left lower extremity (Primary Dx); Equinus contracture of left ankle Start: 09-20-2023 Bamboo flowsheet Stephenie Wrig ht TRANSITION SPECIALIST Work Phone: [facility] Start: 09-20-2023 Bamboo flowsheet Stephenie Wrig ht TRANSITION SPECIALIST Work Phone: [facility] Start: 09-17-2023 End: 09-17-2023 ambulatory Elmer Esteban PT Work Phone: [facility] Comment on above: Achilles tendinitis of left lower extremity (Primary Dx); Left shoulder pain, unspecified chronicity; Shoulder stiffness, left; Other specified postprocedural states Start: 09-13-2023 Chart abstracting Elmer espino PT Work Phone: [facility] Start: 09-13-2023 End: 09-13-2023 ambulatory Elmer Esteban PT Work Phone: [facility] Comment on above: Achilles tendinitis of left lower extremity (Primary Dx) Start: 09-10-2023 Chart abstracting Elmer De Los Santos gs PT Work Phone: [facility] Start: 09-10-2023 End: 09-10-2023 ambulatory Elmer Esteban PT Work Phone: [facility] Comment on above: Achilles tendinitis of left lower extremity (Primary Dx) Start: 12-16-2022 End: 12-17-[address] VERO WEAVER Facility:[facility] Start: 06-15-2022 End: 06-16-[address] VERO WEAVER Facility:[facility] Start: 07-15-2018 End: 07-16-2018 Patient encounter procedure TAE Jasmine EMMANUEL Facility:[facility] Start: 11-05-2017 End: 11-08-2017 Ambulatory CHRISTINA KELSEY [facility] Procedures Date Procedure Procedure Detail Performing Clinician Start: 11-14-2024 Complete blood count with white cell differential, automated Cralos MORALES Work Phone: Start: 10-03-2024 End: 10-03-2024 Needle emg ea extremty w/paraspinl area complete Laura Lopez DO Work Phone: Start: 09-06-2024 Mammography Luis Phillips PERSONAL CAREGIVER Work Phone: Start: 09-02-2023 Mammography Elmer Esteban PT Work Phone: Start: 07-05-2023 Adult depression screening assessment Ronna Lauren APRN-GUITAR MAKER HAND Work Phone: Start: 11-05-2017 H/O: section H/O section Elmertess De Los Santosgs PT Work Phone: Start: 11-05-2017 H/O: tubal ligation S/P tubal ligation Elmer Carlito PT Work Phone: Start: 11-05-2017 History of total hysterectomy S/P TEZ (total abdominal hysterectomy) Elmertess McclainCarlito PT Work Phone: History of decompres jcarlos of median nerve S/P carpal tunnel release Carlos Patricio PA Work Phone: History of decompres jcarlos of median nerve S/P carpal tunnel release Carlos Patricio PA Work Phone: Plan of Treatment Date Care Activity Detail Author Start: 11-16-2025 Adult BMI Screening Adult BMI Screening [facility] Start: 11-16-2025 Tobacco Screening Tobacco Screening [facility] Start: 11-07-2025 Adult BMI Screening Adult BMI Screening [facility] Start: 11-07-2025 Tobacco Screening Tobacco Screening [facility] Start: 09-06-2025 Adult BMI Screening Adult BMI Screening [facility] Start: 09-06-2025 Screening for malignant neoplasm of breast Mammogram [facility] Start: 06-28-2025 End: 06-28-2025 Patient encounter procedure 06/28/2025 11:00 AM EST Office Visit [facility] [address] [place] [address] Luis Rodgers MD [address] [address] [place] [address] [facility] Start: 04-09-2025 Influenza vaccination [facility] Start: 12-26-2024 End: 12-26-2024 Patient encounter procedure [facility] Comment on above: S/P carpal tunnel release (Primary Dx) Start: 12-12-2024 End: 12-12-2024 Patient encounter procedure [facility] Comment on above: S/P carpal tunnel release (Primary Dx) Start: 11-16-2024 End: 11-16-2024 Admission to same day surgery center 11/16/2024 11:15 AM EDT - 11/16/2024 11:45 AM EDT Surgery [facility] - Surgery [address] [place] [address] Rochelle Mazariegos DO [address] [place] [address] ESOPHAGOGASTRODUODENOSCOPY DIAGNOSTIC [85159 (CPT )] [facility] - Surgery Comment on above: ESOPHAGOGASTRODUODENOSCOPY DIAGNOSTIC [4 3235 (CPT )] Start: 11-16-2024 End: 11-16-2024 Esophagogastroduodenoscopy transoral diagnostic ESOPHAGOGASTRODUODENOSCOPY DIAGNOSTIC gastroesophageal reflux 11/16/2024 11:15 AM EDT [facility] Start: 11-16-2024 Subsequent hospital visit by physician 11/16/2024 11:15 AM EDT Hospital Encounter [facility] - Surgery [address] [place] [phone] Rochelle Mazariegos, [address] [place], [place] [id number] [facility] - Surgery Start: 11-14-2024 End: 11-14-2024 Patient encounter procedure 11/14/2024 1:45 PM EDT Off ice Visit [facility] [address] [place] [phone] Carlos Patricio, CARMEN [address] [address] [facility] Start: 11-09-2024 End: 11-09-2024 ambulatory 11/09/2024 3:10 PM EDT Support Visit [facility] - Pre Admit [address] [place] [phone] [facility] - Pre Admit Start: 11-07-2024 End: 11-07-2024 Patient encounter procedure 11/07/2024 11:00 AM EDT Office Visit [facility] Surgery [address] [place] [phone] Yesi Vargas APRN-GUITAR MAKER HAND [address] [place] [address] [facility] General Surgery Start: 11-06-2024 End: 11-06-2025 Basic metabolic 1998 panel - Serum or Plasma Basic metabolic panel Lab Routine Preop examination Expected: 11/06/2024 (Approximate), Expires: 11/06/2025 [facility] Comment on above: Expected: 11/06/2024 (Approximate), Expi res: 11/06/2025 Start: 11-06-2024 End: 11-06-2025 Basic metabolic 2000 panel - Serum or Plasma Basic Metabolic Panel Lab Routine Encounter for other preprocedural examination Expected: 11/06/2024, Expires: 11/06/2025 [facility] Work Phone: Comment on above: Expected: 11/06/2024, Expires: Start: 11-06-2024 End: 11-06-2025 CBC W Auto Differential panel - Blood CBC and differential Lab Routine Preop examination Expected: 11/06/2024 (Approximate), Expires: 11/06/2025 [facility] Work Phone: Comment on above: Expected: 11/06/2024 (Approximate), Expi res: 11/06/2025 Start: 11-06-2024 End: 11-06-2025 ECG 12 lead ECG 12 lead ECG Routine Preo p examination Expected: 11/06/2024 (Approximate), Expires: 11/06/2025 [facility] Comment on above: Expected: 11/06/2024 (Approximate), Expi res: 11/06/2025 Start: 10-03-2024 End: 10-03-2024 Patient encounter procedure 10/03/2024 9:30 AM EST Procedure Visit [facility] [address] [place] [phone] Laura Lopez DO [address] [place] [phone] Arrived [facility] Comment on above: Arrived Start: 09-14-2024 End: 09-14-2025 EMG AND NERVE CONDUCTION STUDY EMG AND NERVE CONDUCTIO N STUDY Neurology Routine Arm weakness Numbness Arm pain, right Arm pain, left Expected: 09/14/2024 (Approximate), Expires: 09/14/2025 [facility] Work Phone: Comment on above: Expected: 09/14/2024 (Approximate), Expi res: 09/14/2025 Start: 09-14-2024 End: 09-14-2024 Patient encounter procedure 09/14/2024 9:15 AM EST Off ice Visit [facility] [address] [address] Luis Phillips, PERSONAL CAREGIVER [address] [place] [address] Arrived [facility] Comment on above: Arrived Start: 09-02-2024 Adult BMI Screening Adult BMI Screening [facility] Start: 09-02-2024 Screening for malignant neoplasm of breast Mammogram [facility] Start: 07-05-2024 Depression Screening Depression Screening [facility] Start: 07-05-2024 Tobacco Screening Tobacco Screening [facility] Start: 06-29-2024 End: 06-29-2024 Patient encounter procedure 06/29/2024 11:05 AM EST Office Visit [facility] [address] [place] [phone] Luis Rodgers MD [address] [place] [address] [facility] Start: 04-09-2024 COVID-19 Vaccine ( season) COVID-19 Vaccine () [facility] Start: 04-09-2024 Influenza vaccination [facility] Start: 09-22-2023 End: 09-22-2023 Patient encounter procedure [facility] Comment on above: Arrived Start: 09-20-2023 End: 09-20-2023 ambulatory 09/20/2023 8:00 AM EST Treatment [facility] [address] [place] [address] Stephenie Staley, JAMAL [address] [place], [place] [phone] [facility] Start: 09-17-2023 End: 09-17-2023 ambulatory 09/17/2023 9:00 AM EST Treatment [facility] [address] [place] [address] Elmer Esteban, PT [address] [place] [address] [facility] Start: 09-15-2023 End: 09-15-2023 ambulatory 09/15/2023 8:00 AM EST Treatment [facility] [address] [place] [address] Stephenie Staley, TRANSITION SPECIALIST [address] [place] [address] [facility] Start: 09-13-2023 End: 09-13-2023 ambulatory 09/13/2023 8:00 AM EST Treatment [facility] [address] [place] [address] Elmer Esteban, PT [address] [place] [address] [facility] Start: 09-10-2023 End: 09-10-2023 ambulatory 09/10/2023 1:00 PM EST Treatment [facility] [address] [place] [address] Elmer Esteban, PT [address] [place] [address] [facility] Start: 04-09-2023 Influenza vaccination Influenza Vaccine (#1) [facility] Start: 2023 Fall Risk Screening Fall Risk Screening [facility] Start: 2023 Pneumococcal Vaccine: 65+ Years (1 - PCV) Pneumococcal Vaccine: 65+ Years (1 - PCV) [facility] Start: 2023 Pneumococcal Vaccine: 65+ Years (1 of 1 - PCV) Pneumococcal Vaccine: 65+ Years (1 of 1 - PCV) [facility] Start: 01-26-2008 Administration of varicella zoster vaccine Zoster (Shingles) Vaccine (1 of 2) [facility] Start: 01-26-2008 Pneumococcal Vaccine: 65+ Years (1 of 1 - PCV) Pneumococcal Vaccine: 65+ Years (1 of 1 - PCV) [facility] Start: 10-25-1999 DTaP,Tdap and Td Vaccines (1 - Tdap) DTaP,Tdap and Td Vaccines (1 - Tdap) [facility] Start: 01-26-1988 Screening for malignant neoplasm of cervix [facility] Start: 1979 Screening for malignant neoplasm of cervix Pap Smear [facility] Start: 01-26-1976 Adult BMI Follow Up Plan Adult BMI Follow Up Plan [facility] Start: 1960 Screening for malignant neoplasm of colon [facility] End: 11-07-2025 Esophagogastroduodenoscopy EGD GI Routine Gastroesophageal reflux disease, unspecified whether esophagitis present 1 Occurrences starting 11/07/2024 until 11/07/2025 [facility] Work Phone: Comment on above: 1 Occurrences starting 11/07/2024 until 11/07/2025 Immunizations Immunization Date Immunization Notes Care Provider Negrita ludwig 11-14-2020 COVID-19, mRNA, LNP- S, PF, 100mcg/0.5mL Dose Ronna MacMain BATCH AND FURNACE MANAGER-GUITAR MAKER HAND Work Phone: [facility] 10-17-2020 COVID-19, mRNA, LNP- S, PF, 100mcg/0.5mL Dose Ronna MacMain BATCH AND FURNACE MANAGER-GUITAR MAKER HAND Work Phone: [facility] 06-25-2019 influenza virus vaccine, unspecified formulation Elmer Esteban PT Work Phone: [facility] Payers Date Payer Category Payer Medicaid [employer] MEDICARE A DVANTAGE [id number] 2023 Medicare AETNA MEDICARE A DVANTAGE AETNA MEDICARE REPLACEMENT [id number] 2023-Present [address] [place] [address] [id number] 2023 Medicare HMO [employer] MEDICARE [id number] 2023 Medicare [id number] 2018 Unknown 1959 Unknown [id number] 1959 Unknown [id number] 1958 Unknown [id number] [id number] 1958 Unknown [id number] [id number] 1958 Unknown [id number] [id number] 1958 Unknown [id number] 2.16.840.1.228459.3.579.2.1286 1958 Unknown [id number] 2.16.840.1.059015.3.579.2.1286 1958 Unknown [id number] 2.16.840.1.242377.3.579.2.1286 1958 Unknown [id number] 2.16.840.1.890017.3.579.2.1286 1958 Unknown [id number] 2.16.840.1.957264.3.579.2.1286 1958 Unknown [id number] 2.16.840.1.902548.3.579.2.1259 1958 Unknown [id number] 2.16.840.1.314847.3.579.2.1259 1958 Unknown [id number] 2.16.840.1.746995.3.579.2.9 1958 Unknown [id number] 2.16.840.1.024099.3.579.2.1259 1958 Unknown [id number] 2.16.840.1.872677.3.579.2.1259 1958 Unknown [id number] 2.16.840.1.545375.3.579.2.1259 1958 Unknown [id number] [id number] Social History Date Type Detail Facility Start: 07-01-2022 End: 01-13-2023 Tobacco smoking status [facility] Never smoked tobacco [facility] Start: 07-01-2022 End: 01-13-2023 Tobacco use and exposure Smokeless tobacco non-user [facility] Start: 08-11-2023 End: 12-26-2024 Alcohol intake Lifetime non-drinker (finding) [facility] Start: 08-11-2023 End: 12-12-2024 History of Social function [facility] Start: 08-11-2023 End: 12-12-2024 Tobacco use panel [facility] Start: 12-26-2022 Alcohol Comment caffeine intak e: 1-2 cups per day of soda/pop [facility] Start: 1960 Sex Assigned At Female [facility] Start: 01-06-2023 Gender identity Identifies as female gender (finding) [facility] Start: 09-02-2023 End: 11-17-2024 Alcoholic beverage intake Current non-drinker of alcohol (finding) [facility] Adolescent depressio n screening assessment 0 [facility] Start: 1960 Sex assigned at Not on file P [facility] Start: 03-14-2015 Sex Female (finding) [facility] Clinical Notes 09-10-2023 to 12-26-2024 CARMEN Plasencia - 12/26/2024 8:15 AM EDTMattCARMEN Singleton - 12/12/2024 10:00 AM EDTPatient InstructionsTelephone Encounter - Luis Phillips NP - 11/27/2024 3:36 PM EDT Note Date & Type Note Facility 12-26-2024 History of Present illness Narrative Images from the original note were not included. Orthopedic Office note: NAME: Sabiha Justin : 1960 EST PT P/O RT CTR 11/28/24 (4WKS). DOING WELL- DENIES N/T- NOTES SOME TENDERNESS OVER INCISION- PT PLEASED WITH PROGRESS Right Hand Exam Right hand exam is normal. Tenderness The patient is experiencing no tenderness. Range of Motion The patient has normal right wrist ROM. Muscle Strength The patient has normal right wrist strength (MOTORS HAND AND WRIST WITHIN LIMITS OF SURGERY). Deportation Examiner: 5/5 Other Erythema: absent Scars: present (Well healed) Sensation: normal Pulse: present Comments: The operative upper extremity was neurovascularly unchanged. Patient was able to motor fingers and thumb to operative upper extremity in all anatomic planes with 5 out of 5 strength. Radial and ulnar pulses were present and equal bilaterally postoperatively. Sensation to light touch was intact to all dermatomes to operative upper extremity postoperatively. Capillary refill was less than 2 seconds postoperatively to operative upper extremity nailbeds. Compartments were soft to operative upper extremity postoperatively. No orders of the defined types were placed in this encounter. Procedures Results ICD-10-CM 1. S/P carpal tunnel release Z98.890 Assessment & Plan Postoperative status following right hand carpal tunnel surgery. She is demonstrating satisfactory progress, with no reported numbness or tingling. Full child care giver strength has been regained, although there is some sensitivity along the incision site. A small piece of dry skin or potentially retained suture was successfully removed using sterile pickups, with no signs of bleeding or discharge. The wound is healing well. Scar massage was discussed as a potential therapeutic measure. Currently, there are no restrictions on her hand usage, and she expresses satisfaction with her recovery. Treatment plan: Scar massage was discussed as a potential therapeutic measure. Follow-up: She will contact the clinic if any symptoms develop. PROCEDURE Procedure Performed Right hand carpal tunnel surgery (4 weeks ago) Specimen Removed Small piece of dry skin or possibly retained suture Questions answered in laymen terms at the bedside. The diagnosis, home exercise plan and any ongoing restrictions/ recommendations reviewed. If unable to be reached in office, I recommend evaluation at nearest Emergency Room if any symptoms worsened or new symptoms develop for requiring urgent evaluation. Visit was preformed using [employer]-airline pilot speech recognition. documented in this encounter [facility] 12-12-2024 History of Present illness Narrative Images from the original note were not included. Orthopedic Office note: NAME: Sabiha Justin : 1960 EST PT 1ST P/O RT CTR 11/28/24 (2WKS). DENIES PAIN. NO PAIN MEDS. ONLY TOOK MEDS THE FIRST DAY. KEEPS WRIST WRAPPED. DENIES N/T, SWELLING. +ICE PRN. DOES NOT WAKE AT HS. STITCHES INTACT, REMOVED TODAY. INCISION HEALING WELL. Right Hand Exam Right hand exam is normal. Tenderness The patient is experiencing tenderness in the palmar area (EXPECTED POST OPERATIVE SORENESS AT INICISION.). Range of Motion The patient has normal right wrist ROM. Muscle Strength The patient has normal right wrist strength (MOTORS HAND AND WRIST WITHIN LIMITS OF SURGERY). Other Erythema: absent Scars: present (WELL HEALING, SUTURES PRESENT, REMOVED) Sensation: normal Pulse: present Comments: The operative upper extremity was neurovascularly unchanged. Patient was able to motor fingers and thumb to operative upper extremity in all anatomic planes with 5 out of 5 strength. Radial and ulnar pulses were present and equal bilaterally postoperatively. Sensation to light touch was intact to all dermatomes to operative upper extremity postoperatively. Capillary refill was less than 2 seconds postoperatively to operative upper extremity nailbeds. Compartments were soft to operative upper extremity postoperatively. No orders of the defined types were placed in this encounter. Procedures Results ICD-10-CM 1. S/P carpal tunnel release Z98.890 Assessment & Plan Postoperative status following right carpal tunnel release. She is doing well. She reports no numbness or tingling. Her incision is healing well, and she has a good range of motion in her hand. She has not experienced any pain during the postoperative period and is quite pleased with her progress. Discussed ongoing restrictions. She will follow up in 2 weeks to reassess her wound healing and discuss scar massage at that time. She verbalized plan not to submerge the hand pending reevaluation. Follow-up: The patient will follow up in 2 weeks. PROCEDURE Procedure Performed Right carpal tunnel release Questions answered in laymen terms at the bedside. The diagnosis, home exercise plan and any ongoing restrictions/ recommendations reviewed. If unable to be reached in office, I recommend evaluation at nearest Emergency Room if any symptoms worsened or new symptoms develop for requiring urgent evaluation. Visit was preformed using [employer]-airline pilot speech recognition. documented in this encounter [facility] 12-12-2024 Instructions CARMEN Plasencia - 12/12/2024 10:00 AM EDT Discussed Carpal Tunnel Surgery: Recommend tendon glides, slowly open and closed fist focusing on bending each joint 25 reps 4 times a day. No submerging wound. ( No swimming or washing dishes in standing water) Remove steri strips if still present in 7 days. It is ok if they fall off sooner. No heavy gripping, such as opening pickle jar . May use hand for phone, keyboarding and driving a car with power steering. Avoid putting pressure on palm. Ex.) pushing into arm of chair with palm or palm/ pushup position in bed to change position. Contact office with any concerns. If office is not reachable or after hours recommend local Emergency Room for more urgent evaluation. documented in this encounter [facility] 11-27-2024 Telephone encounter Note Post op pain rx. PDMP reviewed [facility] 11-27-2024 Miscellaneous Notes Post op pain rx. PDMP reviewed documented in this encounter [facility] 11-21-2024 Miscellaneous Notes ----- Message from Rochelle Mazariegos DO sent at 11/21/2024 7:04 AM EDT ----- Please call and let patient know that all biopsies were basically negative. ThanksDr. Torres Spoke with patient regarding pathology results. Patient verbally understood with no further questions. documented in this encounter [facility] 11-21-2024 Telephone encounter Note ----- Message from Rochelle Mazariegos DO sent at 11/21/2024 7:04 AM EDT ----- Please call and let patient know that all biopsies were basically negative. ThanksDr. Torres [facility] 11-21-2024 Telephone encounter Note Spoke with patient regarding pathology results. Patient verbally understood with no further questions. [facility] 11-14-2024 History of Present illness Narrative Images from the original note were not included. GENERAL HISTORY AND PHYSICAL: NAME: Sabiha Justin : 1960 HISTORY OF PRESENT ILLNESS: Sabiha Justin is an 64 y.o. @ female. Here for surgery instructions Right Carpal tunnel release ( release of transverse carpal ligament) PAST MEDICAL HISTORY: Past Medical History: Diagnosis Date Allergies Arthritis Irregular heart beat PAST SURGICAL HISTORY: Past Surgical History: Procedure Laterality Date CATARACT EXTRACTION, BILATERAL 08/25/22 & 09/01/2022 SECTION, CLASSIC x4 DILATION AND CURETTAGE FOOT SURGERY Right Cysts Removed PARTIAL HYSTERECTOMY ROTATOR CUFF REPAIR October 2022 SHOULDER ARTHROSCOPY 10/20/2022 Dr Yan SHOULDER SURGERY Shoulder spurs removed SOCIAL HISTORY: Social History Occupational History Not on file Tobacco Use Smoking status: Never Smokeless tobacco: Never Vaping Use Vaping status: Never Used Substance and Sexual Activity Alcohol use: Never Comment: caffeine intake: 1-2 cups per day of soda/pop Drug use: Never Sexual activity: Never ALLERGIES: No Known Allergies MEDICATIONS: Current Outpatient Medications Medication Instructions hydroxychloroquine (Plaquenil) 200 MG tablet TK 1 T PO BID WITH FOOD AND YEARLY EYE EXAM Oral for 30 loratadine (CLARITIN) 10 mg, Daily RT metoprolol succinate XL (Toprol XL) 50 MG 24 hr tablet Every 24 hours Multiple Vitamin (multivitamin) tablet 1 tablet, Daily Multiple Vitamins-Minerals (MULTIVITAMIN ADULT, MINERALS, PO) Multivitamin REVIEW OF SYSTEMS: Review of Systems Constitutional: Negative for fatigue, fever and unexpected weight change. Eyes: Negative for redness and visual disturbance. Gastrointestinal: Negative for abdominal pain. Denies Indigestion Musculoskeletal: See note: Skin: Negative for color change and rash. Neurological: Negative for light-headedness and numbness. Vitals: Body mass index is 29.05 kg/m . PHYSICAL EXAM: Physical Exam Constitutional: General: She is not in acute distress. Appearance: Normal appearance. HENT: Head: Normocephalic and atraumatic. Right Ear: External ear normal. Left Ear: External ear normal. Nose: Nose normal. No rhinorrhea. Mouth/Throat: Mouth: Mucous membranes are moist. Pharynx: No posterior oropharyngeal erythema. Eyes: Extraocular Movements: Extraocular movements intact. Conjunctiva/sclera: Conjunctivae normal. Cardiovascular: Rate and Rhythm: Normal rate and regular rhythm. Pulses: Normal pulses. Heart sounds: No murmur heard. Pulmonary: Effort: Pulmonary effort is normal. No respiratory distress. Breath sounds: Normal breath sounds. No wheezing or rhonchi. Abdominal: Palpations: Abdomen is soft. Tenderness: There is no abdominal tenderness. Musculoskeletal: Cervical back: Normal range of motion and neck supple. Lymphadenopathy: Cervical: No cervical adenopathy. Skin: General: Skin is warm and dry. Findings: No erythema or rash. Neurological: General: No focal deficit present. Mental Status: She is alert and oriented to person, place, and time. Psychiatric: Mood and Affect: Mood normal. Behavior: Behavior normal. Orders Placed This Encounter Procedures CBC and differential Standing Status: Future Number of Occurrences: 1 Standing Expiration Date: 11/06/2025 Order Specific Question: Print requisition? Answer: No Basic metabolic panel Standing Status: Future Number of Occurrences: 1 Standing Expiration Date: 11/06/2025 Order Specific Question: Print requisition? Answer: No ECG 12 lead Standing Status: Future Standing Expiration Date: 11/06/2025 ASSESSMENT: ICD-10-CM 1. Preop examination Z01.818 CBC and differential Basic metabolic panel ECG 12 lead CBC and differential Basic metabolic panel PLAN:This patient presents for preadmission testing for upcoming surgery. Complete history with medical, surgery, and current allergy and medication list obtained. Consent for surgery signed and witnessed after verbal consent to perform surgery received. All questions answered and proposed surgery scheduled. PRE OP SURGERY INSTRUCTIONS 11/14 @ 1:45 [facility] SENT TO [facility] PRECERT OBTAINED Follow up in about 4 weeks (around 12/12/2024) for Post-Op 12/12/24 @ 10:00 WITH FRANK PATRICIO. documented in this encounter [facility] 11-07-2024 History of Present illness Narrative Images from the original note were not included. Chief Complaint: GERD History of Present Illness Sabiha Justin is a 64 y.o. female who presents to the office for GERD. She reports burning and indigestion for months. She also reports that she feels like something is in her right upper quadrant and occasionally has right upper back pain. The pain is not necessarily postprandial. She denies nausea, vomiting, melena, constipation, diarrhea. She is not currently drinking any caffeine. She does not smoke. She is taking Nexium in the morning and Pepcid at night with slight relief in symptoms. Review of Systems Constitutional: Negative for fever and unexpected weight change. HENT: Negative for trouble swallowing. Respiratory: Negative for shortness of breath. Cardiovascular: Negative for chest pain. Gastrointestinal: Positive for abdominal pain. Negative for nausea, vomiting, diarrhea, constipation and blood in stool. GERD Genitourinary: Negative for dysuria and difficulty urinating. Musculoskeletal: Negative for gait problem. Skin: Negative for rash and wound. Neurological: Negative for dizziness, weakness and light-headedness. Hematological: Does not bruise/bleed easily. Psychiatric/Behavioral: Negative for confusion. Past Medical History: Diagnosis Date Irregular heart rate taking metoprolol for this, not hypertension Past Surgical History: Procedure Laterality Date SECTION x4 COLONOSCOPY 07/27/2015 DILATION AND CURETTAGE OF UTERUS 2 FOOT SURGERY HYSTERECTOMY 1993 PARTIAL SHOULDER SURGERY x2 No Known Allergies Current Outpatient Medications: cholecalciferol, vitamin D3, 25 mcg (1,000 unit) capsule, Take 1 capsule (1,000 Units total) by mouth in the morning., Disp: , Rfl: esomeprazole (NexIUM) 40 mg capsule, Take 1 capsule (40 mg total) by mouth every morning before breakfast., Disp: , Rfl: famotidine (PEPCID) 40 mg tablet, Take 1 tablet (40 mg total) by mouth in the morning., Disp: , Rfl: hydroxychloroquine (PLAQUENIL) 200 mg tablet, Take 1 tablet (200 mg total) by mouth in the morning., Disp: , Rfl: 11 loratadine (CLARITIN) 10 mg tablet, Take 1 tablet (10 mg total) by mouth in the morning., Disp: , Rfl: metoprolol succinate XL (TOPROL-XL) 50 mg 24 hr tablet, TK 1 T PO D IN THE MORNING AND 1 T QHS, Disp: , Rfl: tzfgmrsb-qmaz-EX-calcium &mins (THERAGRAN-M) 9 mg iron-400 mcg tablet, Take 1 tablet by mouth in the morning., Disp: , Rfl: UNABLE TO FIND, Take 1 tablet by mouth in the morning. Vitamin Code B., Disp: , Rfl: UNABLE TO FIND, Take 1 drop by mouth in the morning. Ultimate Mineral Supplement., Disp: , Rfl: Social History Socioeconomic History Marital status: Spouse name: Not on file Number of children: Not on file Years of education: Not on file Highest education level: Not on file Occupational History Not on file Tobacco Use Smoking status: Never Smokeless tobacco: Never Vaping Use Vaping status: Never Used Substance and Sexual Activity Alcohol use: No Drug use: No Sexual activity: Yes Partners: Male control/protection: Surgical Comment: hysterectomy Other Topics Concern Not on file Social History Narrative Not on file Social Drivers of Health Financial Resource Strain: Not on file Food Insecurity: No Food Insecurity (11/07/2024) Hunger Screening Food Insecurity - Worry: Never True Food Insecurity - Inability: Never True Transportation Needs: Not on file Physical Activity: Not on file Stress: Not on file Social Connections: Not on file Interpersonal Safety: Not on file Housing Instability: Not on file Family History Problem Relation Age of Onset Diabetes Mother Diabetes Father No Known Problems Sister No Known Problems Sister No Known Problems Sister No Known Problems Sister No Known Problems Sister No Known Problems Sister No Known Problems Sister Diabetes Brother Diabetes Brother No Known Problems Brother No Known Problems Brother Breast cancer Neg Hx Ovarian cancer Neg Hx Colon cancer Neg Hx Pancreatic cancer Neg Hx Objective Physical Exam Constitutional: General: She is not in acute distress. Appearance: Normal appearance. She is not ill-appearing. HENT: Head: Normocephalic and atraumatic. Mouth/Throat: Mouth: Mucous membranes are moist. Eyes: Pupils: Pupils are equal, round, and reactive to light. Cardiovascular: Rate and Rhythm: Normal rate. Pulmonary: Effort: Pulmonary effort is normal. No respiratory distress. Abdominal: General: There is no distension. Musculoskeletal: General: Normal range of motion. Skin: General: Skin is warm and dry. Neurological: Mental Status: She is alert and oriented to person, place, and time. Mental status is at baseline. Vital Signs: Blood pressure (!) 160/91, pulse 95, height 167.6 cm (5' 6 ), weight 89.9 kg (198 lb 3.2 oz), not currently . Respiratory Source: No data recorded Admission Weight: Weight: 89.9 kg (198 lb 3.2 oz) Labs Lab Results Component Value Date WBC 6.5 07/25/2015 HGB 13.8 07/25/2015 HCT 40.9 07/25/2015 MCV 88.9 07/25/2015 PLT 364 07/25/2015 Lab Results Component Value Date GLU 115 (H) 07/25/2015 CALCIUM 9.8 07/25/2015 K 4.5 07/25/2015 CO2 26 07/25/2015 CL 103 07/25/2015 BUN 25 07/25/2015 CREATININE 0.69 07/25/2015 No results found for: AMYLASE No results found for: LIPASE Lab Results Component Value Date ALT 34 07/25/2015 AST 32 07/25/2015 No results found for: INR , PROTIME Assessment GERD RUQ pain Plan Schedule EGD. Gallbladder ultrasound ordered per PCP. Eat smaller meals. Avoid caffeine. Continue PPI. Last colonoscopy 08/06/2015 was normal - We will see her back in July for 10 year recall. Evaluation included: Preparing to see the patient (e.g., review of tests) Obtaining and/or reviewing separately obtained history Performing a medically appropriate examination and/or evaluation Counseling and educating the patient/family/caregiver Referring and communicating with other health hospice patient care secretary Gastroesophageal reflux disease, unspecified whether esophagitis present [K21.9] YESI VARGAS APRN-ALISHA [facility] General Surgery [place] This note was created with the assistance of a speech recognition program. While intending to generate a timely document that accurately reflects the content of the visit, no guarantee can be provided that every grammatical or spelling mistake has been or will be identified or corrected. Thank you for your understanding. FE Garcia 11/07/24 1316 documented in this encounter [facility] 10-18-2024 History of Present illness Narrative HISTORY OF PRESENT ILLNESS: EST PT Sabiha Justin is an 64 y.o. @ female. (EST PT) (LAST APPT W/ [facility]) - RECHECK (R) CTS ; S/P B/L UE EMG 10/03/24 [facility] B/L UE [facility]G 10/03/24 [facility] HX SPLINT; DENIES RELIEF B/L CTS - RT>LT. SYMPTOMS FOR YRS - GRADUALLY INCREASING. N/T CAN BE ENTIRE HAND - N/T THUMBS. WAKING HS. SOME DIFFICULTY GRIPPING/GRASPING. N/T WITH HOLDING HER BOOK. NO PAIN MEDS. PT IS LEFT HAND DOMINANT. HX (L) SHOULDER SCOPE 10/20/22 (DR. YAN) ALLERGIES: No Known Allergies HOME MEDICATIONS: Current Outpatient Medications Medication Instructions fluocinonide (Lidex) 0.05 % external solution Apply to affected areas on the scalp, up to twice a day when flared, 30 day supply hydroxychloroquine (Plaquenil) 200 MG tablet TK 1 T PO BID WITH FOOD AND YEARLY EYE EXAM Oral for 30 loratadine (CLARITIN) 10 mg, Daily RT metoprolol succinate XL (Toprol XL) 50 MG 24 hr tablet Every 24 hours Multiple Vitamins-Minerals (MULTIVITAMIN ADULT, MINERALS, PO) Multivitamin PHYSICAL EXAM: Hand/Wrist Musculoskeletal Exam Inspection Right Erythema: none Ecchymosis: none Edema: none Deformity: mild Left Erythema: none Ecchymosis: none Edema: none Deformity: none Inspection additional comments: MILD THENAR ATROPHY RT THUMB Palpation Right Right hand palpation is normal. Wrist tenderness to palpation: carpal canal Left Left hand palpation is normal. Wrist tenderness to palpation: carpal canal Palpation additional comments: DENIES PAIN TO PALPATION OF HAND/ WRIST JOINT. RT>LT Range of Motion Right Hand Right hand range of motion is normal. Left Hand Left hand range of motion is normal. Range of motion additional comments: ABLE TO MAKE FULL FIST Strength Right Hand Right hand strength is normal. Left Hand Left hand strength is normal. 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 Radial pulse: normal and 2+ Capillary refill: <3 sec Ulnar nerve sensory distribution: normal Median nerve sensory distribution: decreased (intermittent daily numbness and tingling in thumb/index middle ring finger) Median nerve 2 point discrimination (mm): 14 Superficial radial nerve sensory distribution: normal Left Radial pulse: normal and 2+ Capillary refill: <3 sec Ulnar nerve sensory distribution: normal Median nerve sensory distribution: decreased (occasional numbness/tingling in thumb) Superficial radial nerve sensory distribution: normal Special Tests Right Phalen's: positive Tinel's - carpal tunnel: positive Left Phalen's: positive Tinel's - carpal tunnel: positive Special tests additional comments: RT>LT General Constitutional: appears stated age Labored breathing: no Neurological: alert and oriented x3 Skin: intact Lymphadenopathy: none Vitals: There is no height or weight on file to calculate BMI. Tobacco Use: Low Risk (09/14/2024) Patient History Smoking Tobacco Use: Never Smokeless Tobacco Use: Never Passive Exposure: Not on file Alcohol Use: Not on file IMAGING: Procedures No orders of the defined types were placed in this encounter. ASSESSMENT: ICD-10-CM 1. Bilateral carpal tunnel syndrome G56.03 2. Numbness and tingling in right hand R20.0 R20.2 PLAN: We have discussed her case with her at length including both surgical and nonsurgical treatment options and the risks and benefits associated with both. Patient is requesting have a right carpal tunnel release because she has splinted and rested it and tried nonsteroidal anti-inflammatories and her symptoms are affecting her activities of daily living and ability to sleep. We'll see her back on the day of surgery for an open release of the transverse carpal ligament to the right wrist and hand. Patient fully understands the risks and benefits of said treatment. We have discussed both surgical and nonsurgical treatment options with the patient and the risks and benefits associated with both. The patient is requesting surgical intervention because the patient's symptoms were affecting the patient's activities of daily living and ability to sleep. The patient's symptoms were unresponsive to outpatient treatment options. After lengthy discussions involving but not limited to both surgical and nonsurgical treatment options the patient has requested surgical intervention and we will see them back on the day of surgery. The patient understands the risks of said treatment. Questions answered in laymen terms at the bedside. The diagnosis, home exercise plan and any ongoing restrictions/ recommendations reviewed. If unable to be reached in office, I recommend evaluation at nearest Emergency Room if any symptoms worsened or new symptoms develop for requiring urgent evaluation. documented in this encounter [facility] 10-03-2024 History of Present illness Narrative Images from the original note were not included. Reason for Appointment: EMG Patient: Sabiha Justin : 1960 EMG Computer: [employer] Referring Physician: Luis Phillips NP EMG: JENNIFER weld inspector: Tao Gale RT(R) Office Location: [facility] Reason for EMG: c/o numbness/tingling in bilateral hands R>L. Hx of surgery to left shoulder. No hx of DM. Not on blood thinners Comments: Procedure was explained to the patient who expressed understanding. Patient appeared to have tolerated the test well despite some discomfort due to the nature of the test. documented in this encounter [facility] 09-14-2024 History of Present illness Narrative Images from the original note were not included. HISTORY OF PRESENT ILLNESS: EST PT Sabiha Justin is an 64 y.o. @ female. EST PT WITH NEW C/O B/L CTS- RT>LT- SYMPTOMS FOR YRS- GRADUALLY INCREASING NO EMG HX SPLINT; DENIES RELIEF N/T CAN BE ENTIRE HAND- N/T THUMBS - +WAKES HS- SOME DIFFICULTY GRIPPING/GRASPING- +N/T WITH HOLDING HER BOOK- PT IS LT HAND DOMINANT ALLERGIES: No Known Allergies HOME MEDICATIONS: Current Outpatient Medications Medication Instructions fluocinonide (Lidex) 0.05 % external solution Apply to affected areas on the scalp, up to twice a day when flared, 30 day supply hydroxychloroquine (Plaquenil) 200 MG tablet TK 1 T PO BID WITH FOOD AND YEARLY EYE EXAM Oral for 30 loratadine (CLARITIN) 10 mg, Daily RT metoprolol succinate XL (Toprol XL) 50 MG 24 hr tablet Every 24 hours Multiple Vitamins-Minerals (MULTIVITAMIN ADULT, MINERALS, PO) Multivitamin PHYSICAL EXAM: Hand/Wrist Musculoskeletal Exam Inspection Right Erythema: none Ecchymosis: none Edema: none Deformity: mild Left Erythema: none Ecchymosis: none Edema: none Deformity: none Inspection additional comments: MILD THENAR ATROPHY RT THUMB Palpation Right Right hand palpation is normal. Wrist tenderness to palpation: carpal canal Left Left hand palpation is normal. Wrist tenderness to palpation: carpal canal Palpation additional comments: DENIES PAIN TO PALPATION OF HAND/ WRIST JOINT. RT>LT Range of Motion Right Hand Right hand range of motion is normal. Left Hand Left hand range of motion is normal. Range of motion additional comments: ABLE TO MAKE FULL FIST Strength Right Hand Right hand strength is normal. Left Hand Left hand strength is normal. 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 Radial pulse: normal and 2+ Capillary refill: <3 sec Ulnar nerve sensory distribution: normal Median nerve sensory distribution: decreased (intermittent daily numbness and tingling in thumb/index middle ring finger) Superficial radial nerve sensory distribution: normal Left Radial pulse: normal and 2+ Capillary refill: <3 sec Ulnar nerve sensory distribution: normal Median nerve sensory distribution: decreased (occasional numbness/tingling in thumb) Superficial radial nerve sensory distribution: normal Special Tests Right Phalen's: positive Tinel's - carpal tunnel: positive Left Phalen's: positive Tinel's - carpal tunnel: positive Special tests additional comments: RT>LT General Constitutional: appears stated age Labored breathing: no Neurological: alert and oriented x3 Skin: intact Lymphadenopathy: none Vitals: There is no height or weight on file to calculate BMI. Tobacco Use: Low Risk (09/14/2024) Patient History Smoking Tobacco Use: Never Smokeless Tobacco Use: Never Passive Exposure: Not on file Alcohol Use: Not on file IMAGING: Procedures Orders Placed This Encounter Procedures EMG AND NERVE CONDUCTION STUDY Standing Status: Future Standing Expiration Date: 09/14/2025 Scheduling Instructions: REFERRAL TO [facility] FOR B/L UE EMG; PLEASE CALL PT TO SCHEDULE ASSESSMENT: ICD-10-CM 1. Arm weakness R29.898 EMG AND NERVE CONDUCTION STUDY 2. Numbness R20.0 EMG AND NERVE CONDUCTION STUDY 3. Arm pain, right M79.601 EMG AND NERVE CONDUCTION STUDY 4. Arm pain, left M79.602 EMG AND NERVE CONDUCTION STUDY PLAN: Patient states that both of her hands have numbness and tingling but right hand is much more severe and frequent compared to her left hand. She has tried night splint with little to no relief. I recommend EMG of both wrists to evaluate for CTS. She will follow up with Dr. Yan post EMG to discuss treatment. Questions answered in laymen terms at the bedside. The diagnosis, home exercise plan and any ongoing restrictions/ recommendations reviewed. If unable to be reached in office, I recommend evaluation at nearest Emergency Room if any symptoms worsened or new symptoms develop for requiring urgent evaluation. Luis Phillips BATCH AND FURNACE MANAGER-GUITAR MAKER HAND documented in this encounter [facility] 08-07-2024 Miscellaneous Notes Patient is requesting mammogram order. Patient not due for Medicare Breast & Pelvic exam until June 2025. Please advise. Thank you She has an active order from her PCP. She can call to schedule. Thanks, - FE Warren 08/07/24 11:35 AM Advised Patient mammogram was ordered by Dr. Acuña. Gave telephone number for [employer] [facility] Scheduling. documented in this encounter [facility] 08-07-2024 Telephone encounter Note Patient is requesting mammogram order. Patient not due for Medicare Breast & Pelvic exam until June 2025. Please advise. Thank you [facility] 08-07-2024 Telephone encounter Note She has an active order from her PCP. She can call to schedule. Thanks, - FE Warren 08/07/24 11:35 AM [facility] [employer] [facility] 08-07-2024 Telephone encounter Note Advised Patient mammogram was ordered by Dr. Acuña. Gave telephone number for [employer] [facility]. [facility]-29-[facility]24 History of Present illness Narrative Images [...] Examined Right arm Examined Patient wearing nail english, Denies dark streaks on toenails Left arm [...] year skin exam documented in this encounter [facility] 09-22-2023 History of Present illness Narrative Images from the original note were not included. Subjective Patient ID: Sabiha Justin is a 63 y.o. female who presents for 6 week FUV (jud Justin is a 63 y.o. female. Established pt [...] develops any flares of symptoms I recommend [id number] anti-inflammatories and close follow up with our [...] or corrected. Thank you for your understanding. Hector Garcia DPM documented in this encounter [facility] 09-17-2023 History of Present illness Narrative Physical Therapy Physical Therapy Evaluation Visit Patient Name: Sabiha Justin Today's Date: 09/17/2023 Encounter Diagnoses Name Primary? Achilles tendinitis of left lower extremity Yes Left shoulder pain, unspecified chronicity Shoulder stiffness, left Other specified postprocedural states Visit number: 3 Sup time: 38 min Total time: 55 min Progress: improving pain and swelling since starting PT Subjective Sabiha Justin 63 y.o. female presents to physical therapy [...] despite known spur. documented in this encounter [facility] 09-13-2023 History of Present illness Narrative Physical Therapy Physical Therapy Evaluation Visit Patient Name: Sabiha Justin Today's Date: 09/13/2023 Encounter Diagnoses Name Primary? Achilles tendinitis of left lower extremity Yes Visit number: 93 Sup time: 38 min Total time: 55 min Subjective Sabiha Justin 63 y.o. female presents to physical therapy [...] well, continue POC. documented in this encounter [facility] 09-10-2023 History of Present illness Narrative Physical Therapy Physical Therapy Evaluation Visit Patient Name: Sabiha Justin Today's Date: 09/10/2023 Encounter Diagnoses Name Primary? Achilles tendinitis of left lower extremity Yes Left shoulder pain, unspecified chronicity Shoulder stiffness, left Other specified postprocedural states Visit number: 2 Sup time: 24 min Total time: 40 min Subjective Sabiha Justin 63 y.o. female presents to physical therapy w/ chief c/o L heel/achilles pain. Mechanism of Onset: no YUID, likely deg factors with spurring Current deficits: [...] well, continue POC. documented in this encounter [facility] Healthcare Evaluation note Diagnosis Achilles tendinitis of left lower extremity- Primary documented in this encounter [facility] HealthcareEvaluation note* Diagnosis Achilles tendinitis of left lower extremity- Primary documented in this encounter [facility] HealthcareEvaluation note* Diagnosis Achilles tendinitis of left lower extremity- Primary Left shoulder pain, unspecified chronicity Shoulder stiffness, left Other specified postprocedural states documented in this encounter [facility] HealthcareEvaluation note* Diagnosis Achilles tendinitis of left lower extremity- Primary Equinus contracture of left ankle documented in this encounter [facility] HealthcareEvaluation note* Diagnosis Seborrheic keratosis- Primary Other pruritus Notalgia paresthetica Disturbance of skin sensation Lentigines Hyperpigmentation due to hydroxychloroquine therapy documented in this encounter [facility] HealthcareEvaluation note* Diagnosis Encounter for screening mammogram for malignant neoplasm of breast- Primary [facility] Arm weakness Other musculoskeletal symptoms referable to limbs Numbness Disturbance of skin sensation Arm pain, right Pain in soft tissues of limb Arm pain, left Pain in soft tissues of limb documented in this encounter [facility] HealthcareEvaluation note* Diagnosis Arm weakness Other musculoskeletal symptoms referable to limbs Numbness Disturbance of skin sensation Arm pain, right Pain in soft tissues of limb Arm pain, left Pain in soft tissues of limb documented in this encounter [facility] HealthcareEvaluation note* Diagnosis Bilateral carpal tunnel syndrome- Primary Carpal tunnel syndrome Numbness and tingling in right hand Disturbance of skin sensation documented in this encounter [facility] HealthcareEvaluation note* Diagnosis Encounter for other preprocedural examination [facility] Diagnosis Gastroesophageal reflux disease, unspecified whether esophagitis present- Primary RUQ pain Abdominal pain, right upper quadrant [facility] Diagnosis Preop examination Unspecified pre-operative examination documented [facility]* Diagnosis Acute post-operative pain- Primary documented in this encounter [facility]* Diagnosis S/P carpal tunnel release- Primary Other postprocedural status documented in this encounter [facility]* Diagnosis S/P carpal tunnel release- Primary Other postprocedural status documented in this encounter [facility] HealthcareInstructionsNot on filedocumented in this encounterProMedial Health SystemInstructionsNot on filedocumented in this encounterProMadison Health SystemInstructions* Attachments The following attachments cannot be sent through Care Everywhere. * Upper endoscopy (Belarusian) documented in this encounterProMadison Health SystemReason for visit Narrative* Other Medical (Routine) - Closed Specialty Diagnoses / Procedures Referred By Luis villatoro Referred To Contact Neurology Diagnoses Arm weakness Numbness Arm pain, right Arm pain, left Procedures EMG AND NERVE CONDUCTION STUDY Luis Phillips, PERSONAL CAREGIVER [address] [place] [address] Phone: tel: fax: Deuce Loyola MD [address] [address] Phone: tel: fax: Referral ID Status Reason Start Date Expiration Date V isits Requested Visits Authorized [id number] Closed Perform Procedure 09/14/2024 03/13/2025 1 1 [facility] Healthcare Summary Purpose Family History No Family History [...] section and content) DATE CREATED AUTHOR 01/27/2018 [facility] DATE CREATED AUTHOR AUTHOR'S ORGANIZ ATION 07/19/2018 [facility] DATE CREATED AUTHOR AUTHOR'S ORGANIZ ATION 12/20/2022 [facility] DATE CREATED AUTHOR AUTHOR'S ORGANIZ ATION 11/08/2024 [facility] DATE CREATED AUTHOR AUTHOR'S ORGANIZ ATION 11/22/2024 [facility] DATE CREATED AUTHOR AUTHOR'S ORGANIZ ATION 12/27/2024 [facility] Care Teams (unrecognized sec tion and content) Book Binder Relationship Specialty Start Date End Date Nagi Acuña MD [address] [place] [address] PCP - General Internal Medicine 01/12/23 Book Binder Relationship Specialty Start Date End Date Nagi Acuña MD [address] [place] [address] PCP - General Internal Medicine 01/12/23 Book Binder Relationship Specialty Start Date End Date Nagi Acuña MD [address] [place] [address] PCP - General Internal Medicine 01/12/23 Book Binder Relationship Specialty Start Date End Date Nagi Acuña MD [address] [place] [address] PCP - General Internal Medicine 01/12/23 Book Binder Relationship Specialty Start Date End Date Nagi Acuña MD [address] [place] [address] PCP - General Internal Medicine 01/12/23 Book Binder Relationship Specialty Start Date End Date Nagi Acuña MD [address] [place] [address] PCP - General Internal Medicine 01/12/23 Book Binder Relationship Specialty Start Date End Date Nagi Acuña MD [facility] [place] [address] PCP - General Internal Medicine 01/12/23 Book Binder Relationship Specialty Start Date End Date Nagi Acuña Jr., DO [address] [place] [id number] PCP - General Internal Medicine 06/10/17 Book Binder Relationship Specialty Start Date End Date Nagi Acuña MD [address] [place] [id number] PCP - General Internal Medicine 01/12/23 Book Binder Relationship Specialty Start Date End Date Nagi Acuña MD [address] [place] [id number] PCP - General Internal Medicine 01/12/23 Book Binder Relationship Specialty Start Date End Date Nagi Acuña MD [address] [place] [id number] PCP - General Internal Medicine 01/12/23 Book Binder Relationship Specialty Start Date End Date Nagi Acuña Jr., DO [address] [place] [id number] PCP - General Internal Medicine 06/10/17 Book Binder Relationship Specialty Start Date End Date Nagi Acuña Jr., DO [address] [place] [id number] PCP - General Internal Medicine 06/10/17 Book Binder Relationship Specialty Start Date End Date Nagi Acuña MD [address] [place] [address] [id number] PCP - General Internal Medicine 01/12/23 Reason for Visit (unrecogniz ed section and content) Specialty Diagnoses / Procedures Referred By Luis t Referred To Contact Physical Therapy Diagnoses Achilles tendinitis of left lower extremity Procedures MA OFFICE/OUTPATIENT NEW HIGH MDM 60 MINUTES Hector Garcia, DPM [address] [place] [address] Elmer Esteban, PT [address] [place] [place] [address] Referral ID Status Reason Start Date Expiration Date Visits Requested Visits Authorized [id number] Authorized Specialty Services Required 08/11/2023 02/07/2024 99 99 Reason Comments 6 week FUV jud Justin is a 63 y.o. female. Established pt presents today for 1 month fuv of left heel pain. Pt relates improvement, pt has completed 2nd course of prednisone, and PT completed 09/20/2023, pt has her own Tens unit, and would like to know recommendations on how long and often. Reason Comments Skin Check Reason Comments Numbness Pain Reason Comments Pain Reason Comments Abdominal Pain Right upper quadrant pain, indigestion, gas, last colon 08/06/15, referred by Dr. Acuña Reason Comments Pre-op Exam Reason Comments Post-op FOR RECORDS PERTAINING TO PATIENTS WHO ARE [...] BE BASED ON THE PRIMARY CLINICAL RECORDS. [employer] provides no warranty or guarantee of the accuracy or completeness of information in this document.
[2025-02-15 08:22] LABS: Hematocrit 37.1 % (36.0-48.0); Hemoglobin 12.1 g/dL (12.0-16.0); Immature Granulocytes Abs Auto 0.03 10^3/uL (0.00-0.03); Immature Granulocytes Pct Auto 0.3 % (0.0-0.5); Lymphocytes Absolute Auto 1.9 10^3/uL (1.2-3.8); Mean Corpuscular HGB Conc 32.6 g/dL (29.9-35.2); Mean Corpuscular Hemoglobin 28.3 pg (26.7-34.0); Mean Corpuscular Volume 86.7 fL (81.0-99.0); Platelet Count 417 10^3/uL (150-450); Red Blood Count 4.28 10^6/uL (4.20-5.40); White Blood Count 8.8 10^3/uL (4.0-11.0)
[2025-02-15 08:31] LABS: Glucose Urine UA NEGATIVE (NEGATIVE)
[2025-02-15 08:36] LABS: Estimated GFR (African America >60 (>=60 mL/min/1.73m^2); Estimated GFR (Non-African Ame >60 (>=60 mL/min/1.73m^2)
[2025-02-15 08:46] LABS: Cast Seen? NONE SEEN #/LPF (NONE SEEN); Crystals Seen? None Seen #/HPF (None Seen)
== END 2025-02-15 07:53 | disposition home or self-care (01) ==
LOC: LAB 07:54
PROVIDERS: PCP Internal Medicine; Visit Provider Internal Medicine Rheumatology
DX: R76.0 Raised antibody titer (principal)
CPT/HCPCS: 36415; 81001; 82565; 85025; 85652; 86140; 86160

== ENCOUNTER 2025-05-18 08:43 | Outpatient (OUT) | payer MEDICARE, SELFPAY ==
--- OUTSIDE RECORDS SUMMARY | 2025-05-18 08:52 | XMS_ITS | CCD ---
Author Organization [facility] Care Team Providers Care Logistics Administrator Name Role Phone CHRISTINA KELSEY Unavailable Unavailable VERO WEAVER Unavailable Unavailable CHRISTINA KELSEY Unavailable Unavailable OWEN, DR PHAM Admitting Unavailable OWEN, DR PHAM Attending Unavailable VALONE, DR CARREON Primary Care Unavailable HALADATimothy, DR PHAM Consulting Unavailable HALCHRISTOPHER, DR PHAM Admitting Unavailable OWEN, DR PHAM Attending Unavailable VALZION, DR CARREON Primary Care Unavailable OWEN, DR PHAM Consulting Unavailable Nagi Acuña MD Primary Care Provider [phone] Arianne Trent DO, Charles L Primary Care Provider Arianne Trent, Nagi SELLERS Primary Care Provider YESI VARGAS Attending Unavailable NAGI ACUÑA JR Referring Unavailable ARLETONE , NAGI Alejandra Primary Care Unavailable LUIS PHILLIPS Attending Unavailable LAURA LOPEZ Attending Unavailable LUIS PHILLIPS Referring Unavailable JR. YAN GEORGE C Attending Unavaila CARLOS Georges Attending Unavailable CARLOS PATRICIO Attending Unavailable CARLOS PATRICIO Attending Unavailable LUIS RODGERS Attending Unavailable ARIANNE AN NAGI Alejandra Referring Unavailable VALONE JR, NAGI Alejandra Primary Care Unavailable CARLOS PATRICIO Referring Unavailable ARLETONE JR NAGI Alejandra Primary Care Unavailable ROCHELLE MAZARIEGOS Admitting Unavailable ROCHELLE MAZARIEGOS Attending Unavailable ROCHELLE MAZARIEGOS Referring Unavailable VALONE JR, NAGI Alejandra Primary Care Unavailable VALONE , NAGI L Referring Unavailable VALONE JR, NAGI Alejandra Primary Care Unavailable VALONE , NAGI Alejandra Referring Unavailable VALONE , NAGI Alejandra Primary Care Unavailable Gilbert Emmanuel MD Attending Unavaila ble Nagi Acuña DO Primary Care Unavail able Denise Rojo Attending Unavailable Nagi Acuña DO Primary Care Unavail able Allergies Allergy Classification Reported Allergen(s) Allergy Type Date of Onset Reaction(s) Facility (1 source) No Known Medication Allergies; Translations: [No Known Medication Allergies] Propensity to adverse reactions to drug (disorder) [facility] Repository Medications Current Medications Medication Drug Class(es) Dates Sig (Normalized) Sig (Original) acetaminophen 325 mg / HYDROcodone bitartrate 5 mg oral tablet (1 source) Opioid Agonist Start: 5 End: 5 take 1 tablet by mouth every six hours for pain HYDROcodone-acetamino phen (Morgan) 5-325 MG tablet Indications: Acute post-operative pain [...] (MULTIVITAMIN ADULT, MINERALS, PO) Multivitamin 0 Active hokhpinq-yrlb-AG-calcium &mi ns (THERAGRAN-M) 9 mg iron-400 mcg tablet (2 sources) loxncgbl-idas-HG -calcium &mins (THERAGRAN-M) 9 mg iron-400 mcg [...] 11 06/29/2024 11/14/2024 Discontinued (Therapy completed) MULTIVIT 35-FUVNKOBR-RHI-PELLET MACHINE OPERATOR M ORAL (3 sources) End: 11-07-2024 take 2 tablets by mouth in the morning MULTIVIT 53-SLUFEEDW-ERS-CHR OM ORAL Take 2 tablets by mouth in the morning. 11/07/2024 Discontinued (Patient Stopped On Own) take 2 tablets by mo ut in the morning MULTIVIT 58-RRVCYCZC-HAC-CHROM ORAL Take 2 tablets by mouth in [...] [Pain in left arm] 09-14-2024 Episodic Other connective tissue disease (1 source) Pain in right hand; Translations: [Pain in right hand] Onset: 04-30-2025 Episodic Other connective tissue disease (1 source) Pain in left hand; Translations: [Pain in left hand] Onset: 04-30-2025 Episodic Other inflammatory condition of skin (2 [...] [Obesity, unspecified] Onset: 11-05-2017 01-13-2023 Chronic Other skin disorders (2 sources) Lentiginosis; Translations: [...] not elsewhere classified] Onset: 01-14-2023 01-14-2023 Episodic Other screening for suspected conditions (not mental disorders or infectious disease) (3 sources) Abnormal results of liver function studies; Translations: [Patient encounter status] Onset: 06-20-2022 08-07-2024 Episodic Residual codes; unclassified (20 sources) History of abdominal hysterectomy; Translations: [Acquired absence of both cervix and uterus] Onset: 06-10-2017 01-13-2023 Episodic Residual codes; unclassified (20 sources) Postprocedural state finding; Translations: [Other specified postprocedural states] Onset: 01-14-2023 01-14-2023 Episodic Unclassified (4 sources) Onset: 06-16-2018 06-16-2018 Results Test Name Value Interpretation Reference Range Facility XR HAND LT MIN 3 VWSon 05-01 XR HAND LT MIN 3 VWS XR HAND LT MIN 3 VWS XR HAND LT MIN 3 VWS Bilateral hand pain; Inflammatory arthritis Findings: There is grossly no fracture or destructive lesion. Impression: * No acute findings. 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 Finalized by Meng Tijerina MD on 05/01/2025 6:12 PM Normal [facility] XR HAND RT MIN 3 VWSon 05-01 XR HAND RT MIN 3 VWS XR HAND RT MIN 3 VWS XR HAND RT MIN 3 VWS Bilateral hand pain; Inflammatory arthritis Findings: There is grossly no fracture or destructive lesion. Impression: * No acute findings. Diffuse osteopenia. Erosions of the MPJs and ulna are subluxations second and third MPJ is consistent with inflammatory arthropathy. * Consider MRI if you suspect occult process. Finalized by Meng Tijerina MD on 05/01/2025 6:14 PM Normal [facility] H PYLORI SCREENon 11-16-2024 H. pylori Org specific cx Ql (Li fld) Negative Normal NEG [facility] Comment on above: Performed By: #### 4 [id number] #### [facility] ([id number]) [address] [place] [address], [address] [place] [address] Surgical Pathologyon 025 Surgical Pathology Normal [facility] Comment on above: Result Comment: [facility] [address] [place] [address] Surgical Pathology Consultation Patient Name:SABIHA JUSTIN:1960 (Age: 64)Gender:FTaken:11/16/2024Reported:11/20/2024Physician(s):Rochelle Mazariegos D.O. ([phone])Copy To: Rec. #:[id number]: #[id number] Final Pathologic Diagnosis 1. Gastric antrum biopsies: Normal gastric corpus mucosa. No inflammation, intestinal metaplasia, dysplasia or H. pylori organisms identified. 2. Distal esophageal biopsies: Unremarkable squamous and gastric fundic mucosa. No active or eosinophilic esophagitis identified. No intestinal metaplasia or dysplasia identified. Report Electronically Signed Out ssi/11/20/2024Ryan Grewal M.D. Interpretation performed at [facility], [address] [place] [address], License number: [id number]. Clinical History Gastroesophageal reflux. Gross Description 1. Received in formalin labeled [facility], antrum biopsy , are 2 cervantes feathery tissue bits each 0.2 cm greatest dimension. The specimen is filtered and submitted entirely in a single cassette. (1,ns,[id number], m1) SW 2. Received in formalin labeled [facility], distal esophagus biopsy , are 3 cervantes-hood feathery tissue bits 0.2 cm - 0.3 cm. The specimen is filtered and submitted entirely in a single cassette. (1,ns,[id number], m1) sxw/11/17/2024NSK Specimen(s) Received 1: Antrum biopsy 2: Distal esophageal biopsy Fee Codes(s): 1; 40209 2; 21662 BASIC METABOLIC PANLon 11-14 Anion gap [Moles/Vol] 7 mmol/L Normal 5-15 [facility] Comment on above: Performed By: #### C BCA, BMP #### [facility] ([id number]) [address], [address] [place] [address] Calcium [Mass/Vol] 8.8 mg/dL Normal 8.5-10.5 [facility] Comment on above: Performed By: #### C BCA, BMP #### [facility] ([id number]) [address], [address] [place] [address] Chloride [Moles/Vol] 105 mmol/L Normal 98-109 [facility] Comment on above: Performed By: #### C BCA, BMP #### [facility] ([id number]) [address], [address] [place] [address] CO2 [Moles/Vol] 27 mmol/L Normal 22-32 [facility] Comment on above: Performed By: #### C BCA, BMP #### [facility] ([id number]) [address], [address] [place] [address] Creatinine [Mass/Vol] 0.81 mg/dL Normal 0.40-1.00 [facility] Comment on above: Result Comment: METH OD TRACEABLE TO IDMS STANDARD Performed By: #### C BCA, BMP #### [facility] ([id number]) [address], [address] [place] [address] GFR/1.73 sq M.predicted among non-blacks MDRD (S/P/Bld) [Vol rate/Area] 80 mL/min/{1.73_m2} Normal >59 [facility] Comment on above: Result Comment: Reported eGFR is based on the CKD-EPI 2020 equation that does not use a race coefficient. Performed By: #### C BCA, BMP #### [facility] ([id number]) [address], [address] [place] [address] Glucose [Mass/Vol] 102 mg/dL High 65-99 [facility] Comment on above: Performed By: #### C BCA, BMP #### [facility] ([id number]) [address], [address] [place] [address] Potassium [Moles/Vol] 4.1 mmol/L Normal 3.5-5.0 [facility] Comment on above: Performed By: #### C BCA, BMP #### [facility] ([id number]) [address], [address] [place] [address] Sodium [Moles/Vol] 139 mmol/L Normal 134-146 [facility] Comment on above: Performed By: #### C BCA, BMP #### [facility] ([id number]) [address], [address] [place] [address] Urea nitrogen [Mass/Vol] 18 mg/dL Normal 5-27 [facility] Comment on above: Performed By: #### C BCA, BMP #### [facility] ([id number]) [address], [address] [place] [address] CBC AND AUTO DIFFon 11-15-19 25 ABSOLUTE BASOPHIL 0.1 X10E9/L Normal 0.0-0.2 [facility] Comment on above: Performed By: #### C BCA, BMP #### [facility] ([id number]) [address], [address] [place] [address] ABSOLUTE NEUTROPHIL 4.9 X10E9/L Normal 1.5-6.6 [facility] Comment on above: Performed By: #### C BCA, BMP #### [facility] ([id number]) [address], [address] [place] [address] Basophils/100 WBC (Bld) 1.2 % Normal [facility] Comment on above: Performed By: #### C BCA, BMP #### [facility] ([id number]) [address] [place] [address] Eosinophils (Bld) [#/Vol] 0.2 10*3/uL Normal 0.0-0.4 [facility] Comment on above: Performed By: #### C BCA, BMP #### [facility] ([id number]) [address], [address] [place] [address] Eosinophils/100 WBC (Bld) 2.0 % Normal [facility] Comment on above: Performed By: #### Sachi DORMAN, BMP #### [facility] ([id number]) [address], [address] [place] [address] Erythrocyte distribution width (RBC) [Ratio] 14.5 % Normal 11.5-15.0 [facility] Comment on above: Performed By: #### C DANDY, BMP #### [facility] ([id number]) [address], [address] [place] [address] Hematocrit (Bld) [Volume fraction] 34.8 % Low 35-47 [facility] Comment on above: Performed By: #### C DANDY, BMP #### [facility] ([id number]) [address], [address] [place] [address] Hemoglobin (Bld) [Mass/Vol] 11.6 g/dL Low 11.7-15.5 [facility] Comment on above: Performed By: #### Sachi DORMAN, BMP #### [facility] ([id number]) [address], [address] [place] [address] Lymphocytes (Bld) [#/Vol] 2.0 10*3/uL Normal 1.0-3.5 [facility] Comment on above: Performed By: #### Sachi DORMAN, BMP #### [facility] ([id number]) [address], [address] [place] [address] Lymphocytes/100 WBC (Bld) 24.6 % Normal [facility] Comment on above: Performed By: #### Sachi DORMAN, BMP #### [facility] ([id number]) [address], [address] [place] [address] MCH (RBC) [Entitic mass] 28.2 pg Normal 27-34 [facility] Comment on above: Performed By: #### Sachi DORMAN, BMP #### [facility] ([id number]) [address], [address] [place] [address] MCHC (RBC) [Mass/Vol] 33.2 g/dL Normal 32-36 [facility] Comment on above: Performed By: #### Sachi DORMAN, BMP #### [facility] ([id number]) [address], [address] [place] [address] MCV (RBC) [Entitic vol] 85 fL Normal 80-100 [facility] Comment on above: Performed By: #### C DANDY, BMP #### [facility] ([id number]) [address], [address] [place] [address] Monocytes (Bld) [#/Vol] 0.9 10*3/uL Normal 0-0.9 [facility] Comment on above: Performed By: #### Sachi DORMAN, BMP #### [facility] ([id number]) [address], [address] [place] [address] Monocytes/100 WBC (Bld) 11.7 % Normal [facility] Comment on above: Performed By: #### Sachi DORMAN, BMP #### [facility] ([id number]) [address], [address] [place] [address] Neutrophils/100 WBC (Bld) 60.5 % Normal [facility] Comment on above: Performed By: #### Sachi DORMAN, BMP #### [facility] ([id number]) [address], [address] [place] [address] Platelet mean volume (Bld) [Entitic vol] 7.8 fL Normal 7-12 [facility] Comment on above: Performed By: #### Sachi DORMAN, BMP #### [facility] ([id number]) [address], [address] [place] [address] Platelets (Bld) [#/Vol] 366 10*3/uL Normal 150-450 [facility] Comment on above: Performed By: #### C DANDY, BMP #### [facility] ([id number]) [address], [address] [place] [address] RBC COUNT 4.09 X10E12/L Normal 3.80-5.20 [facility] Comment on above: Performed By: #### Sachi DORMAN, BMP #### [facility] ([id number]) [address], [address] [place] [address] WBC (Bld) [#/Vol] 8.1 10*3/uL Normal 4.0-11.0 [facility] Comment on above: Performed By: #### Sachi DORMAN, BMP #### [facility] ([id number]) [address], [address] [place] [id number] CBC W Auto Differential pane l (Bld)on 11-14-2024 ABSOLUTE BASOPHIL 0.1 [facility] Comment on above: PERFORMED AT [facility] [address] [facility] [place] [address] Basophils/100 WBC (Bld) 1.2 % [facility] Eosinophils (Bld) [#/Vol] 0.2 10*3/uL [facility] Eosinophils/100 WBC (Bld) 2 % [facility] Erythrocyte distribution width (RBC) [Ratio] 14.5 % 11.5 - 15.0 % [facility] Hematocrit (Bld) [Volume fraction] 34.8 % Low 35 - 47 % [facility] Hemoglobin (Bld) [Mass/Vol] 11.6 g/dL Low 11.7 - 15.5 g/dL [facility] Interpretation and review of laboratory results Abnormal [facility] Lymphocytes (Bld) [#/Vol] 2 10*3/uL [facility] Lymphocytes/100 WBC (Bld) 24.6 % [facility] MCH (RBC) [Entitic mass] 28.2 pg 27 - 34 pg [facility] MCHC (RBC) [Mass/Vol] 33.2 g/dL 32 - 36 g/dL [facility] MCV (RBC) [Entitic vol] 85 fL 80 - 100 fL [facility] Monocytes (Bld) [#/Vol] 0.9 10*3/uL [facility] Monocytes/100 WBC (Bld) 11.7 % [facility] Neutrophils (Bld) [#/Vol] 4.9 10*3/uL [facility] Neutrophils/100 WBC (Bld) 60.5 % [facility] Platelet mean volume (Bld) [Entitic vol] 7.8 fL 7 - 12 fL [facility] Platelets (Bld) [#/Vol] 366 10*3/uL [facility] RBC (Bld) [#/Vol] 4.09 10*6/uL [facility] WBC corrected for nucl RBC Auto (Bld) [#/Vol] 8.1 [facility] EMG 2 Extremitieson 10-03-19 25 Carpal tunnel bilate rally. Moderate right and minimal left C8 radiculopathies bilaterally which are mild [facility] NVC 11-12 Nerveson 5 Carpal tunnel bilate rally. 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 Scores less than 20% are not considered high risk per ACR guidelines and patient should continue with the above recommendation. Finalized by Pete Mike MD on 09/07/2024 8:17 AM 1 b MAMM 1 YR Normal [facility] C3 and C4 COMPLEMENTon 12-17 Complement C3, Serum 164 mg/dL Normal 82-167 [facility] Comment on above: Performed By: #### C SUITE #### [facility] [address] [place] [address] Dr. Anju Youssef Complement C4, Serum 36 mg/dL Normal 12-38 [facility] Comment on above: Performed By: #### C SUITE #### [facility] [address] [place] [address] Dr. Anju Youssef CBC AUTO DIFFon 12-16-2022 BASO # 0.1 103/ul Normal 0.0-0.1 [facility] Comment on above: Performed By: #### C BC #### [facility] [address] [place] [address] Dr. Anju Youssef Basophils/100 WBC (Bld) 0.9 % Normal 0.2-2.0 [facility] Comment on above: Performed By: #### C BC #### [facility] [address] [place] [address] Dr. Anju Youssef EO # 0.1 103/ul Normal 0.0-0.7 [facility] Comment on above: Performed By: #### C BC #### [facility] [address] [place] [address] Dr. Anju Youssef Eosinophils/100 WBC (Bld) 1.6 % Normal 0.9-7.0 [facility] Comment on above: Performed By: #### C BC #### [facility] [address] [place] [address] Dr. Anju Youssef Erythrocyte distribution width (RBC) [Ratio] 13.6 % Normal 11.0-15.0 [facility] Comment on above: Performed By: #### C BC #### [facility] [address] [place] [address] Dr. Anju Youssef Hematocrit (Bld) [Volume fraction] 45.2 % Normal 36.0-48.0 [facility] Comment on above: Performed By: #### C BC #### [facility] [address] [place] [address] Dr. Anju Youssef Hemoglobin (Bld) [Mass/Vol] 14.1 g/dL Normal 12.0-16.0 [facility] Comment on above: Performed By: #### C BC #### [facility] [address] [place] [address] Dr. Anju Youssef IG # 0.03 10e3/ul Normal 0.00-0.03 [facility] Comment on above: Performed By: #### C BC #### [facility] [address] [place] [address] Dr. Anju Youssef IG % 0.4 % Normal 0.0-0.5 [facility] Comment on above: Performed By: #### C BC #### [facility] [address] [place] [address] Dr. Anju Youssef LYMPH # 1.9 103/ul Normal 1.2-3.8 [facility] Comment on above: Performed By: #### C BC #### [facility] [address] [place] [address] Dr. Anju Youssef Lymphocytes/100 WBC (Bld) 24.4 % Normal 20.5-60.0 [facility] Comment on above: Performed By: #### C BC #### [facility] [address] [place] [address] Dr. Anju Youssef MANUAL DIFF REQ NO Normal [facility] Comment on above: Performed By: #### C BC #### [facility] [address] [place] [address] Dr. Anju Youssef MCH (RBC) [Entitic mass] 29.1 pg Normal 26.7-34.0 [facility] Comment on above: Performed By: #### C BC #### [facility] [address] [place] [address] Dr. Anju Youssef MCHC (RBC) [Mass/Vol] 31.2 g/dL Normal 29.9-35.2 [facility] Comment on above: Performed By: #### C BC #### [facility] [address] [place] [address] Dr. Anju Youssef MCV (RBC) [Entitic vol] 93.2 fL Normal 81.0-99.0 [facility] Comment on above: Performed By: #### C BC #### [facility] [address] [place] [address] Dr. Anju Youssef MONO # 0.7 103/ul Normal 0.3-0.8 [facility] Comment on above: Performed By: #### C BC #### [facility] [address] [place] [address] Dr. Anju Youssef Monocytes/100 WBC (Bld) 9.4 % Normal 1.7-12.0 [facility] Comment on above: Performed By: #### C BC #### [facility] [address] [place] [address] Dr. Anju Youssef NEUT # 5.0 103/ul Normal 1.4-6.5 [facility] Comment on above: Performed By: #### C BC #### [facility] [address] [place] [address] Dr. Anju Youssef Neutrophils/100 WBC (Bld) 63.3 % Normal 43.0-75.0 [facility] Comment on above: Performed By: #### C BC #### [facility] [address] [place] [address] Dr. Anju Youssef Platelet mean volume (Bld) [Entitic vol] 9.1 fL Critically low 9.5-13.5 [facility] Comment on above: Performed By: #### C BC #### [facility] [address] [place] [address] Dr. Anju Youssef PLT 340 103/ul Normal 150-450 [facility] Comment on above: Performed By: #### C BC #### [facility] [address] [place] [address] Dr. Anju Youssef RBC 4.85 106/ul Normal 4.20-5.40 [facility] Comment on above: Performed By: #### C BC #### [facility] [address] [place] [address] Dr. Anju Youssef WBC 7.9 103/ul Normal 4.0-11.0 [facility] [facility] Comment on above: Performed By: #### C BC #### [facility] Laboratory [address] [place] [address] Dr. Anju Youssef CREATININEon 12-16-2022 Creatinine [Mass/Vol] 0.73 mg/dL Normal 0.55-1.02 [facility] Comment on above: Performed By: #### C NAKIA #### [facility] [address] [place] [address] Dr. Anju Youssef EGFR-AF MARSHALLESE >60 Normal >=60 [facility] Comment on above: Performed By: #### C NAKIA #### [facility] [address] [place] [address] Dr. Anju Youssef EGFR-NON AF MARSHALLESE >60 Normal >=60 [facility] Comment on above: Performed By: #### C NAKIA #### [facility] [address] [place] [address] Dr. Anju [facility] mm/hr Critically high <=30 [facility] Comment on above: Performed By: #### S EDR #### [facility] [address] [place] [address] Dr. Anju Youssef UA RANDOM W/MICROSCOPICon BACTERIA NONE SEEN Normal NONE SEEN [facility] Comment on above: Performed By: #### U AMIC #### [facility] [address] [place] [address] Dr. Anju Youssef Bilirubin Ql (U) Negative Normal NEGATIVE [facility] Comment on above: Performed By: #### U AMIC #### [facility] [address] [place] [address] Dr. Anju Youssef CAST NONE SEEN Normal NONE SEEN [facility] Comment on above: Performed By: #### U AMIC #### [facility] [address] [place] [address] Dr. Anju Youssef Clarity (U) CLEAR Normal CLEAR [facility] Comment on above: Performed By: #### U AMIC #### [facility] [address] [place] [address] Dr. Anju Youssef Color (U) LT. YELLOW Normal YELLOW [facility] Comment on above: Performed By: #### U AMIC #### [facility] [address] [address] [address] Anju Youssef Crystals LM Nom (Urine sed) NONE SEEN Normal NONE SEEN [facility] Comment on above: Performed By: #### U AMIC #### [facility] [address] [address] [address] Anju Youssef Epithelial cells LM Ql (Urine sed) RARE Normal NONE SEEN /RARE [facility] Comment on above: Performed By: #### U AMIC #### [facility] [address] [address] [address] Anju Youssef Glucose Ql (U) Negative Normal NEGATIVE [facility] Comment on above: Performed By: #### U AMIC #### [facility] [address] [place] [address] Dr. Anju Youssef Hemoglobin Ql (U) TRACE-INTACT Abnormal NEGATIVE [facility] Comment on above: Performed By: #### U AMIC #### [facility] [address] [address] [address] Anju Youssef Ketones Ql (U) Negative Normal NEGATIVE [facility] Comment on above: Performed By: #### U AMIC #### [facility] [address] [address] [address] Anju Youssef LEUKOCYTES Negative Normal NEGATIVE [facility] Comment on above: Performed By: #### U AMIC #### [facility] [address] [address] [address] Anju Youssef MUCOUS NONE SEEN Normal NONE SEEN [facility] Comment on above: Performed By: #### U AMIC #### [facility] [address] [address] [address] Anju Youssef Nitrite Ql (U) Negative Normal NEGATIVE [facility] Comment on above: Performed By: #### U AMIC #### [facility] [address] [place] [address] Dr. Anju Youssef pH (U) 5.5 [pH] Normal 5-9 [facility] Comment on above: Performed By: #### U AMIC #### [facility] [address] [place] [address] Dr. Anju Youssef RBC 0-2 Normal 0-2 [facility] Comment on above: Performed By: #### U AMIC #### [facility] [address] [place] [address] Dr. Anju Youssef SPEC GRAVITY <=1.005 Abnormal 1.005-<=1. 025 [facility] Comment on above: Performed By: #### U AMIC #### [facility] [address] [place] [address] Dr. Anju Youssef UA PROTEIN Negative Normal NEGATIVE/ TRACE [facility] Comment on above: Performed By: #### U AMIC #### [facility] [address] [place] [address] Dr. Anju Youssef Urobilinogen Qn (U) 0.2 {Yun'U}/dL Normal 0.2 - 1.0 [facility] Comment on above: Performed By: #### U AMIC #### [facility] [address] [place] [address] Dr. Anju Youssef WBC 0-2 Abnormal NONE SEEN [facility] Comment on above: Performed By: #### U AMIC #### [facility] [address] [place] [address] Dr. Anju Youssef C3 and C4 COMPLEMENTon 06-16 Complement C3, Serum 175 mg/dL Critically high 82-167 [facility] Comment on above: Performed By: #### C SUITE #### [facility] [address] [place] [address] Dr. Anju Youssef Complement C4, Serum 40 mg/dL Critically high 12-38 [facility] Comment on above: Performed By: #### C SUITE #### [facility] [address] [place] [address] Dr. Anju Youssef CBC AUTO DIFFon 06-15-2022 BASO # 0.1 103/ul Normal 0.0-0.1 [facility] Comment on above: Performed By: #### C BC #### [facility] [address] [place] [address] Dr. Anju Youssef Basophils/100 WBC (Bld) 0.6 % Normal 0.2-2.0 [facility] Comment on above: Performed By: #### C BC #### [facility] [address] [place] [address] Dr. Anju Youssef EO # 0.1 103/ul Normal 0.0-0.7 [facility] Comment on above: Performed By: #### C BC #### [facility] [address] [place] [address] Dr. Anju Youssef Eosinophils/100 WBC (Bld) 1.3 % Normal 0.9-7.0 [facility] Comment on above: Performed By: #### C BC #### [facility] [address] [place] [address] Dr. Anuj Youssef Erythrocyte distribution width (RBC) [Ratio] 14.1 % Normal 11.0-15.0 [facility] Comment on above: Performed By: #### C BC #### [facility] [address] [place] [address] Dr. Anju Youssef Hematocrit (Bld) [Volume fraction] 39.8 % Normal 36.0-48.0 [facility] Comment on above: Performed By: #### C BC #### [facility] [address] [place] [address] Dr. Anju Youssef Hemoglobin (Bld) [Mass/Vol] 12.8 g/dL Normal 12.0-16.0 [facility] Comment on above: Performed By: #### C BC #### [facility] [address] [place] [address] Dr. Anju Youssef IG # 0.03 10e3/ul Normal 0.00-0.03 [facility] Comment on above: Performed By: #### C BC #### [facility] [address] [place] [address] Dr. Anju Youssef IG % 0.3 % Normal 0.0-0.5 [facility] Comment on above: Performed By: #### C BC #### [facility] [address] [place] [address] Dr. Anju Youssef LYMPH # 2.2 103/ul Normal 1.2-3.8 [facility] Comment on above: Performed By: #### C BC #### [facility] [address] [place] [address] Dr. Anju Youssef Lymphocytes/100 WBC (Bld) 23.1 % Normal 20.5-60.0 [facility] Comment on above: Performed By: #### C BC #### [facility] [address] [place] [address] Dr. Anju Youssef MANUAL DIFF REQ NO Normal [facility] Comment on above: Performed By: #### C BC #### [facility] [address] [place] [address] Dr. Anju Youssef MCH (RBC) [Entitic mass] 28.7 pg Normal 26.7-34.0 [facility] Comment on above: Performed By: #### C BC #### [facility] [address] [place] [address] Dr. Anju Youssef MCHC (RBC) [Mass/Vol] 32.2 g/dL Normal 29.9-35.2 [facility] Comment on above: Performed By: #### C BC #### [facility] [address] [place] [address] Dr. Anju Youssef MCV (RBC) [Entitic vol] 89.2 fL Normal 81.0-99.0 [facility] Comment on above: Performed By: #### C BC #### [facility] [address] [place] [address] Dr. Anju Youssef MONO # 0.7 103/ul Normal 0.3-0.8 [facility] Comment on above: Performed By: #### C BC #### [facility] [address] [place] [address] Dr. Anju Youssef Monocytes/100 WBC (Bld) 7.9 % Normal 1.7-12.0 [facility] Comment on above: Performed By: #### C BC #### [facility] [address] [place] [address] Dr. Anju Youssef NEUT # 6.2 103/ul Normal 1.4-6.5 [facility] Comment on above: Performed By: #### C BC #### [facility] [address] [place] [address] Dr. Anju Youssef Neutrophils/100 WBC (Bld) 66.8 % Normal 43.0-75.0 [facility] Comment on above: Performed By: #### C BC #### [facility] [address] [place] [address] Dr. Anju Youssef Platelet mean volume (Bld) [Entitic vol] 8.9 fL Critically low 9.5-13.5 [facility] Comment on above: Performed By: #### C BC #### [facility] [address] [place] [address] Dr. Anju Youssef PLT 432 103/ul Normal 150-450 [facility] Comment on above: Performed By: #### C BC #### [facility] [address] [place] [address] Dr. Anju Youssef RBC 4.46 106/ul Normal 4.20-5.40 [facility] Comment on above: Performed By: #### C BC #### [facility] [address] [place] [address] Dr. Anju Youssef WBC 9.3 103/ul Normal 4.0-11.0 [facility] Comment on above: Performed By: #### C BC #### [facility] [address] [place] [address] Dr. Anju Youssef CREATININEon 06-15-2022 Creatinine [Mass/Vol] 0.68 mg/dL Normal 0.55-1.02 [facility] Comment on above: Performed By: #### MIYA PEACE #### [facility] [address] [place] [address] Dr. Anju Youssef EGFR-AF MARSHALLESE >60 Normal >=60 [facility] Comment on above: Performed By: #### MIYA PEACE #### [facility] [address] [place] [address] Dr. Anju Youssef EGFR-NON AF MARSHALLESE >60 Normal >=60 [facility] Comment on above: Performed By: #### MIYA PEACE #### [facility] [address] [place] [address] Dr. Anju Youssef LIVER PROFILEon 06-15-2022 Albumin [Mass/Vol] 3.8 g/dL Normal 3.4-5.0 [facility] Comment on above: Performed By: #### MIYA PEACE #### [facility] [address] [place] [address] Dr. Anju Youssef Albumin/Globulin [Mass ratio] 0.9 {ratio} Normal [facility] Comment on above: Performed By: #### MIYA PEACE #### [facility] [address] [place] [address] Dr. Anju Youssef ALP [Catalytic activity/Vol] 117 U/L Critically high 46-116 [facility] Comment on above: Performed By: #### MIYA PEACE #### [facility] [address] [place] [address] Dr. Anju Youssef ALT [Catalytic activity/Vol] 34 U/L Normal 14-59 [facility] Comment on above: Performed By: #### MIYA PEACE #### [facility] [address] [place] [address] Dr. Anju Youssef AST [Catalytic activity/Vol] 17 U/L Normal 15-37 [facility] Comment on above: Performed By: #### MIYA PEACE #### [facility] [address] [place] [address] Dr. Anju Youssef BILI, CONJUGATED 0.1 mg/dL Normal 0.0-0.2 [facility] Comment on above: Performed By: #### MIYA PEACE #### [facility] [address] [place] [address] Dr. Anju Youssef Bilirubin [Mass/Vol] 0.3 mg/dL Normal 0.2-1.0 [facility] Comment on above: Performed By: #### MIYA PAECE #### [facility] [address] [place] [address] Dr. Anju Youssef Globulin (S) [Mass/Vol] 4.4 g/dL Normal [facility] Comment on above: Performed By: #### MIYA PEACE #### [facility] [address] [place] [address] Dr. Anju Youssef Protein [Mass/Vol] 8.2 g/dL Normal 6.4-8.2 [facility] Comment on above: Performed By: #### MIYA PEACE #### [facility] [address] [place] [address] Dr. Anju Youssef SED RATE WESTERGRENon 2021 SED RATE 48 mm/hr Critically high <=30 [facility] Comment on above: Performed By: #### MIYA PEACE #### [facility] [address] [place] [address] Dr. Anju Youssef UA RANDOM W/MICROSCOPICon BACTERIA TRACE Abnormal NONE SEEN [facility] Comment on above: Performed By: #### U AMIC #### [facility] [address] [place] [address] Dr. Anju Youssef Bilirubin Ql (U) Negative Normal NEGATIVE [facility] Comment on above: Performed By: #### U AMIC #### [facility] [address] [place] [address] Dr. Anju Youssef CAST NONE SEEN Normal NONE SEEN [facility] Comment on above: Performed By: #### U AMIC #### [facility] [address] [place] [address] Dr. Anju Youssef Clarity (U) CLEAR Normal CLEAR [facility] Comment on above: Performed By: #### U AMIC #### [facility] [address] [place] [address] Dr. Anju Youssef Color (U) LT. YELLOW Normal YELLOW [facility] Comment on above: Performed By: #### U AMIC #### [facility] [address] [place] [address] Dr. Anju Youssef Crystals LM Nom (Urine sed) NONE SEEN Normal NONE SEEN [facility] Comment on above: Performed By: #### U AMIC #### [facility] [address] [address] [address] Anju Youssef Epithelial cells LM Ql (Urine sed) RARE Normal NONE SEEN /RARE [facility] Comment on above: Performed By: #### U AMIC #### [facility] [address] [address] [address] Anju Youssef Glucose Ql (U) Negative Normal NEGATIVE [facility] Comment on above: Performed By: #### U AMIC #### [facility] [address] [address] [address] Anju Youssef Hemoglobin Ql (U) TRACE-LYSED Abnormal NEGATIVE [facility] Comment on above: Performed By: #### U AMIC #### [facility] [address] [address] [address] Anju Youssef Ketones Ql (U) Negative Normal NEGATIVE [facility] Comment on above: Performed By: #### U AMIC #### [facility] [address] [place] [address] Dr. Anju Youssef LEUKOCYTES Negative Normal NEGATIVE [facility] Comment on above: Performed By: #### U AMIC #### [facility] [address] [address] [address] Anju Youssef MUCOUS NONE SEEN Normal NONE SEEN [facility] Comment on above: Performed By: #### U AMIC #### [facility] [address] [place] [address] Dr. Anju Youssef Nitrite Ql (U) Negative Normal NEGATIVE [facility] Comment on above: Performed By: #### U AMIC #### [facility] [address] [place] [address] Dr. Anju Youssef pH (U) 5.5 [pH] Normal 5-9 [facility] Comment on above: Performed By: #### U AMIC #### [facility] [address] [place] [address] Dr. Anju Youssef RBC 0-2 Normal 0-2 [facility] Comment on above: Performed By: #### U AMIC #### [facility] [address] [place] [address] Dr. Anju Youssef SPEC GRAVITY 1.020 Normal 1.005-<=1. 025 [facility] Comment on above: Performed By: #### U AMIC #### [facility] [address] [place] [address] Dr. Anju Youssef UA PROTEIN Negative Normal NEGATIVE/ TRACE [facility] Comment on above: Performed By: #### U AMIC #### [facility] [address] [place] [address] Dr. Anju Youssef Urobilinogen Qn (U) 0.2 {Yun'U}/dL Normal 0.2 - 1.0 [facility] Comment on above: Performed By: #### U AMIC #### [facility] [address] [place] [address] Dr. Anju Youssef WBC 0-2 Abnormal NONE SEEN [facility] Comment on above: Performed By: #### U AMIC #### [facility] [address] [place] [address] Dr. Anju Youssef ANAon 11-05-2017 SELVIN by EIA 2.3 OD Ratio Normal [facility] Comment on above: Result Comment: OD R atio is interpreted as follows:Negative <1.0Positive >=1.0 Performed By: #### A AT, HFP, CERULO, SMOOTH, ROMULO, ANAS ####[facility] [place], [place] [phone] SELVIN by EIA, Qual Positive Critically abnormal Negative [facility] Comment on above: Result Comment: Resu lts are to be used as an aid to diagnosis. Confirmation testing for specific antibodies should be run if a positive assay is obtained. A positive result suggests certain diseases and should be confirmed by clinical findings. Performed By: #### A AT, HFP, CERULO, SMOOTH, ROMULO, ANAS ####[id number] [place], [place] [phone] Alpha 1 antitrypsinon 2017 Alpha 1 antitrypsin 141 mg/dL Normal 90-200 [facility] Comment on above: Performed By: #### A AT, HFP, CERULO, SMOOTH, ROMULO, ANAS ####[facility] [address] [place], [place] [phone] CNOVon 11-05-2017 CNOV Office Visit (GASTA5) DUSTY ACESABIHA ([id number]) 1960 FDate Time Provider Department11/05/17 2:00 PM CHRISTINA KELSEY GASTA5 During your visit today, we recorded the following information about you: Temperature Pulse Blood pressure Weight 98 degrees 84/minute 144/79 86.2 kg Height 1.676 mMpushpa Kelsey MD PhD 11/07/2017 10:42 AM SignedPatient is a 57 year old female who was referred byNagi Acuña Jr, [id number] [phone] - [phone] - faxfor evaluation and treatment of an elevated ALT. A copy of this visit will besent to the referring physician via the shared medical record. I havepersonally interviewed and examined this patient.Patient reports that she has rheumatoid arthritis of the hands. 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 Has [...] mail.Christina Kelsey MD PhDReferring Provider: VERO WEAVER [[id number]]Allergies As of Date: 11/05/2017(No Known Allergies)Date Reviewed: Never ReviewedReason for Visit: Consult [173] Cmt: follow upPrimary Visit Diagnosis:Elevated transaminase level [R74.0] Other Visit Diagnoses:S/P tubal ligation [Z98.51] S/P TEZ (total abdominal hysterectomy) [Z90.710] H/O section [Z98.891] Comment:4 C section Obesity (BMI 30.0-34.9) [E66.9] Irregular heart beat [I49.9] Comment:takes metoprololOrder(s):SMOOTH MUSCLE AB PNL SCRN [SQSMOOTH] Order #: [id number] FUTURE MITOCHONDRIAL AB PNL SCRN [SQMITO] Order #: [id number] FUTURE HZKIH-2-KTOPBTUWX BL [SQAAT] Order #: [id number] FUTURE SELVIN BLOOD [SQANAS] Order #: [id number] FUTURE CERULOPLASMIN BLD [SQCERULO] Order #: [id number] FUTURE HEPATIC FUNCTION PNL [SQHFP] Order #: [id number] FUTURE HEP REMOTE PANEL BL [SQHREMOP] Order #: [id number] FUTURE US ABD RT UPPER QUADRANT [2686720] Order #: [id number] FUTUREPrescriptions as of 11/05/2017 Sig: SULFAMETHOXAZOLE 800 [...] Alexei Kilgore MA 11/05/2017 1:31 PM >> [facility] WedNov 05[facility] 2017 1:31 PM Received from: External Pharmacy METHYLPREDNISOLONE 4 MG TABLETS IN A DOSE PACK >> Alexei Kilgore MA 11/05/2017 1:31 PM >> [facility] WedNov 05, 2017 1:31 PM Received from: External Pharmacy METOPROLOL SUCCINATE ER 50 MG TABLET,EXTENDED RELEASE 24 HR >> Alexei Kilgore MA 11/05/2017 1:31 PM >> [facility] WedNov 05, 2017 1:31 PM Received from: External Pharmacy CEPHALEXIN 500 MG CAPSULE >> Alexei Kilgore MA 11/05/2017 1:31 PM >> ALEXEI KILGORE [place] WedNov 05, 2017 1:31 PM Received from: External Pharmacy HYDROCODONE 5 MG-ACETAMINOPHEN 325 MG TABLET >> Alexei Kilgore MA 11/05/2017 1:31 PM >> ANGELES [facility] WedNov 05, 2017 1:31 PM Received from: External Pharmacy HYDROXYCHLOROQUINE 200 MG TABLET >> Alexei Kilgore MA 11/05/2017 1:31 PM >> ALEXEI KILGORE [place] WedNov 05, 2017 1:31 PM Received from: External Pharmacy CHOLECALCIFEROL (VITAMIN D3) 1,000 UNIT CAPSULE >> Alexei Kilgore MA 11/05/2017 1:31 PM >> DAHLIA KILGORE MA WedNov 05, 2017 1:31 PM Received from: [facility] Received Sig: Take 1,000 Units bymouth daily. ASCORBIC ACID (VITAMIN C) 500 MG TABLET >> Alexei Kilgore MA 11/05/2017 1:31 PM >> ALEXEI KILGORE MA WedNov 05, 2017 1:31 PM Received from: [facility] Received Sig: Take 500 mg by mouthdaily. LORATADINE 10 MG TABLET >> Alexei Kilgore MA 11/05/2017 1:31 PM >> ALEXEI KILGORE MA WedNov 05, 2017 1:31 PM Received from: [facility] Received Sig: Take 10 mg by mouthdaily. AZITHROMYCIN 250 MG TABLET >> Alexei Kilgore MA 11/05/2017 1:31 PM >> ALEXEI KILGORE MA WedNov 05, 2017 1:31 PM Received from: [facility] Received Sig: Take 1 tablet by mouthdaily.Problem List As Of Date 11/05/2017 Noted Resolved S/P tubal ligation [Z98.51] INVALID FOR* S/P TEZ (total abdominal hysterectomy) [Z90.710]INVALID FOR* H/O section [Z98.891] INVALID FOR* Obesity (BMI 30.0-34.9) [E66.9] INVALID FOR* Irregular heart beat [I49.9] INVALID FOR*Follow-up and Disposition History RecordedEncounter Number: [id number] Status:Closed by KISHOR PLAZA, CHRISTINA PHD on 11/07/17 Normal [facility] Ceruloplasminon 11-05-2017 Ceruloplasmin 31 mg/dL Normal 16-45 [facility] Comment on above: Performed By: #### A AT, HFP, CERULO, SMOOTH, ROMULO, ANAS ####[facility] [place] [phone] Hepatic Functn Panelon 11-05 Alanine aminotransferase (ALT) 39 U/L High 7-38 [facility] Comment on above: Performed By: #### A AT, HFP, CERULO, SMOOTH, ROMULO, ANAS ####[place] [address] [phone] Albumin 4.4 g/dL Normal 3.9-4.9 [facility] Comment on above: Performed By: #### A AT, HFP, CERULO, SMOOTH, ROMULO, ANAS ####[place] [address] [place] [phone] Alkaline phosphatase (ALP) 102 U/L Normal 32-117 [facility] Comment on above: Performed By: #### A AT, HFP, CERULO, SMOOTH, ROMULO, ANAS ####[place] [address] [place] [phone] Aspartate aminotransferase (AST) 29 U/L Normal 13-35 [facility] Comment on above: Performed By: #### A AT, HFP, CERULO, SMOOTH, ROMULO, ANAS ####[place] [address] [phone] Bilirubin (total) 0.3 mg/dL Normal 0.2-1.3 [facility] Comment on above: Performed By: #### A AT, HFP, CERULO, SMOOTH, ROMULO, ANAS ####[place] [address]Clevel[address] [phone] Bilirubin,Conjugat ed <0.2 Normal <0.2 [facility] Comment on above: Performed By: #### A AT, HFP, CERULO, SMOOTH, ROMULO, ANAS ####[facility] [place], [place] [phone] Protein 8.1 g/dL High 6.3-8.0 [facility] Comment on above: Performed By: #### A AT, HFP, CERULO, SMOOTH, ROMULO, ANAS ####[facility] [address] [place], [place] [phone] Mitochondrial Ab Pnlon 11-05 Mitochondrial Ab Pnl Negative Normal Negative [facility] Comment on above: Result Comment: Norm al range : negative at a 1:20 serum dilution.Corrected on 11/08 AT 1308: Previously reported as ELIZABETH Normal range : negative at a 1:20 serum dilution. Performed By: #### A AT, HFP, CERULO, SMOOTH, ROMULO, ANAS ####[facility] [place], [place] [phone] PROGRESSon 11-05-2017 PROGRESS HNO ID: [id number] thor: Christina Steinerervice: (none)Author Type: PhysicianType: Progress NotesFiled: 11/07/2017 10:42 AMNote Text:Patient is a 57 year old female who was referred byNagi Acuña Jr, [id number] [phone] - [phone] - faxfor evaluation and treatment of an elevated ALT. A copy of this visit willbe sent to the referring physician via the shared medical record. I havepersonally interviewed and examined this patient.Patient reports that she has rheumatoid arthritis of the hands. 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 Has [...] results by mail.Christina Kelsey MD PhD Normal [place] [facility] Smooth Muscle Ab Pnlon 11-05 Smooth Muscle Ab Pnl Negative Normal Negative [facility] Comment on above: Result Comment: Norm al range : negative at a 1:20 serum dilution. Performed By: #### A AT, HFP, CERULO, SMOOTH, ROMULO, ANAS ####[facility] [address] [place], [place] [phone] Vital Signs Date Time Vital Sign Value Performing Clinician Madelinei lity 11-14-2024 13:54-0400 Body height 167.6 cm Carlos MORALES Work Phone: [facility] 11-14-2024 13:54-0400 Body mass index (BMI) [Ratio] 29.05 kg/m2 Carlos MORALES Work Phone: [facility] 11-14-2024 13:54-0400 Body weight 81.65 kg Carlos MORALES Work Phone: [facility] 11-07-2024 11:05-0400 Body height 167.6 cm Yesi Vargas BLOCK OPERATOR-SENIOR ORACLE DATABASE DEVELOPER Work Phone: [facility] 11-07-2024 11:05-0400 Body mass index (BMI) [Ratio] 31.99 kg/m2 Yesi Vargas BLOCK OPERATOR-SENIOR ORACLE DATABASE DEVELOPER Work Phone: [facility] 11-07-2024 11:05-0400 Body weight 89.9 kg Yesi Vargas BLOCK OPERATOR-SENIOR ORACLE DATABASE DEVELOPER Work Phone: [facility] 11-07-2024 11:05-0400 Diastolic blood pressure 91 mm[Hg] Yesi Vargas BLOCK OPERATOR-SENIOR ORACLE DATABASE DEVELOPER Work Phone: [facility] 11-07-2024 11:05-0400 Heart rate 95 /min Yesi Vargas BLOCK OPERATOR-SENIOR ORACLE DATABASE DEVELOPER Work Phone: [facility] 11-07-2024 11:05-0400 Systolic blood pressure 160 mm[Hg] Yesi Vargas BLOCK OPERATOR-SENIOR ORACLE DATABASE DEVELOPER Work Phone: [facility] 09-22-2023 08:58-0500 Body height 167.6 cm Hector Garcia DPM Work Phone: [facility] 09-22-2023 08:58-0500 Body mass index (BMI) [Ratio] 29.05 kg/m2 Hector Garcia DPM Work Phone: [facility] 09-22-2023 08:58-0500 Body weight 81.65 kg Hector Garcia DPM Work Phone: [facility] Healthcare Encounters Encounter Date Encounter Type Care Provider Facility Start: 05-17-2025 ambulatory Gilbert garcia MD Facility[facility] Start: 04-30-2025 End: 04-30-2025 ambulatory NAGI NICEZION [facility] Start: 12-26-2024 End: 12-26-2024 Bamboo flowsheet Carlos Patricio PA Work Phone: [facility] Start: 12-26-2024 End: 12-26-2024 Bamboo flowsheet Carlos Patricio PA Work Phone: [facility] Start: 12-26-2024 End: 12-26-2024 Postop follow up visit related to original px Carlos Patricio PA Work Phone: [facility] Comment on above: S/P carpal tunnel re lease (Primary Dx) Start: 12-26-2024 End: 12-26-2024 ambulatory CARLOS PATRICIO Not Available Start: 12-12-2024 End: 12-12-2024 Bamboo flowsheet Carlos Patricio PA Work Phone: [facility] Start: 12-12-2024 End: 12-12-2024 Bamboo flowsheet Carols Patricio PA Work Phone: [facility] Start: 12-12-2024 End: 12-12-2024 Postop follow up visit related to original px Carlos MORALES Work Phone: [facility] Comment on above: S/P carpal tunnel re lease (Primary Dx) Start: 12-12-2024 End: 12-12-2024 ambulatory CARLOS PATRICIO Not Available Start: 11-27-2024 End: 11-27-2024 Refill Luis Phillips NP Work Phone: [facility] Comment on above: Acute post-operative pain (Primary Dx) Start: 11-21-2024 End: 11-21-2024 Telephone encounter Arielle Salgado [facility] General Surgery Start: 11-16-2024 End: 11-16-2024 Evaluation and management of inpatient ROCHELLE MAZARIEGOS [facility] Start: 11-14-2024 Encounter for other preprocedural examination NAGI ACUÑA [facility] Start: 11-14-2024 End: 11-14-2024 Bamboo flowsheet Carlos MORALES Work Phone: [facility] Start: 11-14-2024 End: 11-14-2024 Bamboo flowsheet Carlos MORALES Work Phone: [facility] Start: 11-14-2024 End: 11-14-2024 External Result Encounter Carlos MORALES Work Phone: [facility] External Department Unsolicited Start: 11-14-2024 End: 11-14-2024 ambulatory CARLOS PATRICIO Not Available Start: 11-14-2024 End: 11-14-2024 Patient encounter procedure Carlos MORALES Work Phone: [facility] Comment on above: Preop examination Start: 11-14-2024 End: 11-14-2024 Preprocedural examination done Carlos MORALES Work Phone: [facility] Start: 11-07-2024 End: 11-07-2024 Office outpatient new 30 minutes Yesichaim Vargas BLOCK OPERATOR-SENIOR ORACLE DATABASE DEVELOPER Work Phone: [facility] General Surgery Comment on above: Gastroesophageal ref lux disease, unspecified whether esophagitis present (Primary Dx); RUQ pain Start: 11-07-2024 End: 11-07-2024 ambulatory [facility] Start: 11-06-2024 End: 11-06-2024 Orders Only Carlos MORALES Work Phone: [facility] Comment on above: Encounter for other preprocedural examination Start: 11-06-2024 End: 11-06-2024 Patient encounter status Carlos MORALES Work Phone: [facility] Start: 10-18-2024 End: 10-18-2024 Office outpatient visit 25 minutes Jr. Belinda Yan DO Work Phone: [facility] Comment on above: Bilateral carpal mark yesi syndrome (Primary Dx); Numbness and tingling in right hand Start: 10-18-2024 End: 10-18-2024 ambulatory BELINDA TRENT Not Available Start: 10-03-2024 End: 10-03-2024 Bamboo flowsheet Laura Lopez DO Work Phone: [facility] Start: 10-03-2024 End: 10-03-2024 Bamboo flowsheet Nashwesley Jessica DO Work Phone: [facility] Start: 10-03-2024 End: 10-03-2024 Patient encounter procedure Nashwesley Louett DO Work Phone: [facility] Comment on above: Arm weakness; Numbness; Arm pain, right; Arm pain, left Start: 10-03-2024 End: 10-03-2024 ambulatory LAURA LOPEZ Not Available Start: 09-14-2024 End: 09-14-2024 Bamboo flowsheet Luis Phillips NP Work Phone: [facility] Start: 09-14-2024 End: 09-14-2024 Bamboo flowsheet Luis Phillips SUPERVISOR DOCK Work Phone: [facility] Start: 09-14-2024 End: 09-14-2024 Office outpatient visit 15 minutes Luis Phillips SUPERVISOR DOCK Work Phone: [facility] Comment on above: Arm weakness; Numbness; Arm pain, right; Arm pain, left Start: 09-14-2024 End: 09-14-2024 ambulatory LUIS PHILLIPS Not Available Start: 09-06-2024 End: 09-06-2024 ambulatory NAGI ACUÑA JR [facility] Start: 08-07-2024 End: 08-07-2024 Telephone encounter Ronna Lauren BLOCK OPERATOR-SENIOR ORACLE DATABASE DEVELOPER Work Phone: [facility] Obstetrics/Gynecolog y Start: 06-29-2024 End: 06-29-2024 Bamboo flowsheet Luis Rodgers MD Work Phone: [facility] Start: 06-29-2024 End: 06-29-2024 Bamboo flowsheet Luis Rodgers MD Work Phone: [facility] Start: 06-29-2024 End: 06-29-2024 ambulatory LUIS RODGERS Not Available Start: 06-29-2024 End: 06-29-2024 Office outpatient visit 25 minutes Luis Rodgers MD Work Phone: [facility] Comment on above: Seborrheic keratosis (Primary Dx); Other pruritus; Notalgia paresthetica; Lentigines; Hyperpigmentation due to hydroxychloroquine therapy Start: 09-22-2023 Bamboo flowsheet Hector Ramos her DPM Work Phone: [facility] Start: 09-22-2023 Bamboo flowsheet Hector Ramos her DPM Work Phone: [facility] Start: 09-22-2023 End: 09-22-2023 Office outpatient visit 15 minutes Hector Garcia DPM Work Phone: [facility] Comment on above: Achilles tendinitis of left lower extremity (Primary Dx); Equinus contracture of left ankle Start: 09-20-2023 Bamboo flowsheet Stephenie Valerieig ht INFANT TEACHER Work Phone: [facility] Start: 09-20-2023 Bamboo flowsheet Stephenie Wrig ht INFANT TEACHER Work Phone: [facility] Start: 09-17-2023 End: 09-17-2023 ambulatory Elmer Esteban PT Work Phone: [facility] Comment on above: Achilles tendinitis of left lower extremity (Primary Dx); Left shoulder pain, unspecified chronicity; Shoulder stiffness, left; Other specified postprocedural states Start: 09-13-2023 Chart abstracting Elmer espino PT Work Phone: [facility] Start: 09-13-2023 End: 09-13-2023 ambulatory Elmer Esteban PT Work Phone: [facility] [...] 06-16-[address] VERO WEAVER Facility:[facility] Start: 11-05-2017 End: 11-08-2017 Ambulatory CHRISTINA KELSEY [facility] Procedures Date Procedure Procedure Detail Performing Clinician Start: 11-14-2024 Complete blood count with white cell differential, automated Carols MORALES Work Phone: Start: 10-03-2024 End: 10-03-2024 Needle emg ea extremty w/paraspinl area complete Laura Lopez DO Work Phone: Start: 09-06-2024 Mammography Luis Phillips SUPERVISOR DOCK Work Phone: Start: 09-02-2023 Mammography Elmer Esteban PT Work Phone: Start: 07-05-2023 Adult depression screening assessment Ronna Lauren APRN-SENIOR ORACLE DATABASE DEVELOPER Work Phone: Start: 11-05-2017 H/O: section H/O section Elmer De Los Santosgs PT Work Phone: Start: 11-05-2017 H/O: tubal ligation S/P tubal ligation Elmeretss De Los Santosgs PT Work Phone: Start: 11-05-2017 History of total hysterectomy S/P TEZ (total abdominal hysterectomy) Elmertess De Los Santosgs PT Work Phone: History of decompres jcarlos of median nerve S/P carpal tunnel release Carlos MORALES Work Phone: History of decompres jcarlos of median nerve S/P carpal tunnel release Carlos MORALES Work Phone: Plan of Treatment Date Care Activity Detail Author Start: 11-16-2025 Adult BMI Screening Adult BMI Screening [facility] Start: 11-16-2025 Tobacco Screening Tobacco Screening [facility] Start: 11-07-2025 Adult BMI Screening Adult BMI Screening [facility] Start: 11-07-2025 Tobacco Screening Tobacco Screening [facility] Start: 09-06-2025 Adult BMI Screening Adult BMI Screening [facility] Start: 09-06-2025 Screening for malignant neoplasm of breast Mammogram [facility] Start: 06-28-2025 End: 06-28-2025 Patient encounter procedure 06/28/2025 11:00 AM EST Office Visit [facility] [address] [place] [address] Luis Rodgers MD [address] [place] [address] [facility] Start: 04-09-2025 Influenza vaccination [facility] Start: 12-26-2024 End: 12-26-2024 Patient encounter procedure [facility] Comment on above: S/P carpal tunnel release (Primary Dx) Start: 12-12-2024 End: 12-12-2024 Patient encounter procedure [facility] Comment on above: S/P carpal tunnel release (Primary Dx) Start: 11-16-2024 End: 11-16-2024 Admission to same day surgery center 11/16/2024 11:15 AM EDT - 11/16/2024 11:45 AM EDT Surgery [facility] - Surgery [address] [place] [phone] Rochelle Mazariegos, [address] [place] [address] ESOPHAGOGASTRODUODENOSCOPY DIAGNOSTIC [03649 (CPT )] [facility] Comment on above: ESOPHAGOGASTRODUODENOSCOPY DIAGNOSTIC [4 3235 (CPT )] Start: 11-16-2024 End: 11-16-2024 Esophagogastroduodenoscopy transoral diagnostic ESOPHAGOGASTRODUODENOSCOPY DIAGNOSTIC gastroesophageal reflux 11/16/2024 11:15 AM EDT [facility] Start: 11-16-2024 Subsequent hospital visit by physician 11/16/2024 11:15 AM EDT Hospital Encounter [facility] Surgery [address] [place] [phone] Rochelle Mazariegos DO [address] [place], [place] [phone] [facility] Start: 11-14-2024 End: 11-14-2024 Patient encounter procedure 11/14/2024 1:45 PM EDT Off ice Visit [facility] [address] [place] [phone] Carlos Patricio, PA [address] [address] [facility] Start: 11-09-2024 End: 11-09-2024 ambulatory 11/09/2024 3:10 PM EDT Support Visit [facility] - Pre Admit [address] [place] [phone] [facility] Pre Admit Start: 11-07-2024 End: 11-07-2024 Patient encounter procedure 11/07/2024 11:00 AM EDT Office Visit [facility] General Surgery [address] [place] [phone] Yesi Vargas, BLOCK OPERATOR-SENIOR ORACLE DATABASE DEVELOPER [address] [place], [place] [phone] [facility] General Surgery Start: 11-06-2024 End: 11-06-2025 Basic metabolic 1998 panel - Serum or Plasma Basic metabolic panel Lab Routine Preop examination Expected: 11/06/2024 (Approximate), Expires: 11/06/2025 [facility] Comment on above: Expected: 11/06/2024 (Approximate), Expi [...] Preop examination Expected: 11/06/2024 (Approximate), Expires: 11/06/2025 [facility] Work Phone: Comment on above: Expected: 11/06/2024 (Approximate), Expi res: 11/06/2025 Start: 11-06-2024 End: 11-06-2025 ECG 12 lead ECG 12 lead ECG Routine Preo p examination Expected: 11/06/2024 (Approximate), Expires: 11/06/2025 [facility] Comment on above: Expected: 11/06/2024 (Approximate), Expi res: 11/06/2025 Start: 10-03-2024 End: 10-03-2024 Patient encounter procedure 10/03/2024 9:30 AM EST Procedure Visit [facility] [address] [place] [phone] Laura Lopez DO [address] [place] [address] Arrived [facility] Comment on above: Arrived Start: 09-14-2024 End: 09-14-2025 EMG AND NERVE CONDUCTION STUDY EMG AND NERVE CONDUCTIO N STUDY Neurology Routine Arm weakness Numbness Arm pain, right Arm pain, left Expected: 09/14/2024 (Approximate), Expires: 09/14/2025 [facility] Work Phone: Comment on above: Expected: 09/14/2024 (Approximate), Expi res: 09/14/2025 Start: 09-14-2024 End: 09-14-2024 Patient encounter procedure 09/14/2024 9:15 AM EST Off ice Visit [facility] [address] [address] Luis Phillips, QUENTIN [address] [place], [place] [phone] Arrived [facility] Comment on above: Arrived Start: 09-02-2024 Adult BMI Screening Adult BMI Screening [facility] Start: 09-02-2024 Screening for malignant neoplasm of breast Mammogram [facility] Start: 07-05-2024 Depression Screening Depression Screening [facility] Start: 07-05-2024 Tobacco Screening Tobacco Screening [facility] Start: 06-29-2024 End: 06-29-2024 Patient encounter procedure 06/29/2024 11:05 AM EST Office Visit [facility] [address] [place] [address] Luis Rodgers MD [address] [place] [address] [facility] Start: 04-09-2024 COVID-19 Vaccine ( season) COVID-19 Vaccine ( season) [facility] Start: 04-09-2024 Influenza vaccination [facility] Start: 09-22-2023 End: 09-22-2023 Patient encounter procedure [facility] Comment on above: Arrived Start: 09-20-2023 End: 09-20-2023 ambulatory 09/20/2023 8:00 AM EST Treatment [facility] [address] [place] [address] Stephenie Staley PTA [address] [place] [address] [facility] Start: 09-17-2023 End: 09-17-2023 ambulatory 09/17/2023 9:00 AM EST Treatment [facility] [address] [place] [phone] Elmer Esteban, PT [address] [place] [address] [facility] Start: 09-15-2023 End: 09-15-2023 ambulatory 09/15/2023 8:00 AM EST Treatment [facility] [address] [place] [address] Stephenie Staley, INFANT TEACHER [address] [place] [address] [facility] Start: 09-13-2023 End: 09-13-2023 ambulatory 09/13/2023 8:00 AM EST Treatment [facility] [address] [place] [address] Elmer Esteban, PT [address] [place] [address] [facility] Start: 09-10-2023 End: 09-10-2023 ambulatory 09/10/2023 1:00 PM EST Treatment [facility] [address] [place] [address] Elmer Esteban, PT [address] [place] [address] [facility] Start: 04-09-2023 Influenza vaccination Influenza Vaccine (#1) [facility] Start: 2023 Fall Risk Screening Fall Risk Screening [facility] Start: 2023 Pneumococcal Vaccine: 65+ Years (1 - PCV) Pneumococcal Vaccine: 65+ Years (1 - PCV) [facility] Start: 2023 Pneumococcal Vaccine: 65+ Years (1 of 1 - PCV) Pneumococcal Vaccine: 65+ Years (1 of 1 - PCV) [facility] Start: 01-26-2008 Administration of varicella zoster vaccine Zoster (Shingles) Vaccine (1 of 2) [facility] Start: 01-26-2008 Pneumococcal Vaccine: 65+ Years (1 of 1 - PCV) Pneumococcal Vaccine: 65+ Years (1 of 1 - PCV) [facility] Start: 10-25-1999 DTaP,Tdap and Td Vaccines (1 - Tdap) DTaP,Tdap and Td Vaccines (1 - Tdap) [facility] Start: 01-26-1988 Screening for malignant neoplasm of cervix [facility] Start: 1979 Screening for malignant neoplasm of cervix Pap Smear [facility] Start: 01-26-1976 Adult BMI Follow Up Plan Adult BMI Follow Up Plan [facility] Start: 1958 Screening for malignant neoplasm of colon [facility] End: 11-07-2025 Esophagogastroduodenoscopy EGD GI Routine Gastroesophageal reflux disease, unspecified whether esophagitis present 1 Occurrences starting 11/07/2024 until 11/07/2025 [facility] Work Phone: Comment on above: 1 Occurrences starting 11/07/2024 until 11/07/2025 Immunizations Immunization Date Immunization Notes Care Provider Negrita ludwig 11-14-2020 COVID-19, mRNA, LNP- S, PF, 100mcg/0.5mL Dose Ronna MacMain BLOCK OPERATOR-SENIOR ORACLE DATABASE DEVELOPER Work Phone: [facility] 10-17-2020 COVID-19, mRNA, LNP- S, PF, 100mcg/0.5mL Dose Ronna MacMain BLOCK OPERATOR-SENIOR ORACLE DATABASE DEVELOPER Work Phone: [facility] 06-25-2019 influenza virus vaccine, unspecified formulation Elmer Esteban PT Work Phone: [facility] Payers Date Payer Category Payer Private Health Insurance 2023 Medicaid [employer] MEDICARE A DVANTAGE [id number] 2023 Medicare AETNA MEDICARE A DVANTAGE AETNA MEDICARE REPLACEMENT [id number] 2023- [id number] [place] [id number] [id number] 2023 Medicare HMO [employer] MEDICARE [id number] 2023 Medicare [id number] 1959 Unknown [id number] 1959 Unknown [id number] 1958 Unknown [id number] [id number]. 593 1958 Unknown [id number] 2.840.1.121419.3.579.2. 593 1958 Unknown [id number] 2.840.1.085320.3.579.2. 1286 1958 Unknown [id number] 2.16.840.1.884089.3.579.2. 1259 1958 Unknown [id number] 2.16.840.1.400902.3.579.2. 1259 1958 Unknown [id number] 2.16.840.1.649597.3.579.2. 1259 1958 Unknown [id number] 2.16.840.1.206208.3.579.2. 1259 1958 Unknown [id number] 2.16.840.1.720248.3.579.2. 1259 1958 Unknown [id number] 2.16.840.1.317855.3.579.2. 9 1958 Unknown [id number] 2.16.840.1.855216.3.579.2. 9 1958 Unknown [id number] 1960 Unknown [id number] 1286 1960 Unknown [id number] 1286 1960 Unknown [id number]. 1286 1960 Unknown [id number]. 1286 1960 Unknown [id number]. 196 1960 Unknown [id number] 196 Social History Date Type Detail Facility Start: 07-01-2022 End: 01-13-2023 Tobacco smoking status NMIS Never smoked tobacco [facility] Start: 07-01-2022 End: 01-13-2023 Tobacco use and exposure Smokeless tobacco non-user [facility] Start: 08-11-2023 End: 12-26-2024 Alcohol intake Lifetime non-drinker (finding) [facility] Start: 08-11-2023 End: 12-12-2024 History of Social function [facility] Start: 08-11-2023 End: 12-12-2024 Tobacco use panel [facility] Start: 12-26-2022 Alcohol Comment caffeine intak e: 1-2 cups per day of soda/pop [facility] Start: 1960 Sex Assigned At Female N [facility] Start: 01-06-2023 Gender identity Identifies as female gender (finding) [facility] Start: 09-02-2023 End: 11-17-2024 Alcoholic beverage intake Current non-drinker of alcohol (finding) [facility] Adolescent depressio n screening assessment 0 [facility] Start: 1960 Sex assigned at Not on file P [facility] Start: 03-14-2015 Sex Female (finding) [facility] Clinical Notes 09-10-2023 to 12-26-2024 CARMEN Plasencia [...] HAND AND WRIST WITHIN LIMITS OF SURGERY). Plumber Cub: 5/5 Other Erythema: absent Scars: present (Well [...] with no reported numbness or tingling. Full melter supervisor strength has been regained, although there is [...] requiring urgent evaluation. Visit was preformed using [employer]tow[employer] pilot speech recognition. documented in this encounter [facility] 12-12-2024 History of Present illness Narrative Images [...] requiring urgent evaluation. Visit was preformed using [employer] speech recognition. documented in this encounter [facility] 12-12-2024 Instructions CARMEN Plasencia - 12/12/2024 10:00 [...] more urgent evaluation. documented in this encounter [facility] 11-27-2024 Telephone encounter Note Post op pain rx. PDMP reviewed [facility] 11-27-2024 Miscellaneous Notes Post op pain rx. PDMP reviewed documented in this encounter [facility] 11-21-2024 Miscellaneous Notes ----- Message from Rochelle Mazariegos DO sent at 11/21/2024 7:04 AM EDT ----- Please call and let patient know that all biopsies were basically negative. Thanks, Dr. Torres Spoke with patient regarding pathology results. Patient verbally understood with no further questions. documented in this encounter [facility] 11-21-2024 Telephone encounter Note ----- Message from Rochelle Mazariegos DO sent at 11/21/2024 7:04 AM EDT ----- Please call and let patient know that all biopsies were basically negative. ThanksDr. Torres [facility] 11-21-2024 Telephone encounter Note Spoke with patient regarding pathology results. Patient verbally understood with no further questions. [facility] 11-14-2024 History of Present illness Narrative [...] PRE OP SURGERY INSTRUCTIONS 11/14 @ 1:45 [employer] SENT TO [facility] PRECERT OBTAINED Follow up in about 4 weeks (around 12/12/2024) for Post-Op 12/12/24 @ 10:00 WITH FRANK PATRICIO. documented in this encounter [facility] 11-07-2024 History of Present illness Narrative Images [...] AND 1 T QHS, Disp: , Rfl: xkvbadau-zlij-PP-calcium &mins (THERAGRAN-M) 9 mg iron-400 mcg tablet, [...] patient/family/caregiver Referring and communicating with other health child care associate Gastroesophageal reflux disease, unspecified whether esophagitis present [K21.9] FE HOPSON [facility] General Surgery [place] This note was created with the assistance of a speech recognition program. While intending to generate a timely document that accurately reflects the content of the visit, no guarantee can be provided that every grammatical or spelling mistake has been or will be identified or corrected. Thank you for your understanding. FE Hopson 11/07/24 1316 documented in this encounter [facility] 10-18-2024 History of Present illness Narrative [...] is normal. Strength additional comments: 5/5 EQUAL DIRECTOR COUNSELING BUREAU STRENGTH Neurovascular Right Right neurovascular exam is [...] requiring urgent evaluation. documented in this encounter [facility] 10-03-2024 History of Present illness Narrative Images from the original note were not included. Reason for Appointment: EMG Patient: Sabiha Justin : 1960 EMG Computer: [email or web address] Referring Physician: Luis Phillips NP EMG: JENNIFER director presales: Tao Lazo RT(R) Office Location: [place] Reason for EMG: c/o numbness/tingling in bilateral hands R>L. Hx of surgery to left shoulder. No hx of DM. Not on blood thinners Comments: Procedure was explained to the patient who expressed understanding. Patient appeared to have tolerated the test well despite some discomfort due to the nature of the test. documented in this encounter [facility] 09-14-2024 History of Present illness Narrative Images [...] is normal. Strength additional comments: 5/5 EQUAL DIRECTOR COUNSELING [employer]URE[employer] STRENGTH Neurovascular Right Right neurovascular exam is [...] symptoms develop for requiring urgent evaluation. Luis MIRAMONTES documented in this encounter [facility] 08-07-2024 Miscellaneous Notes Patient is requesting mammogram order. Patient not due for Medicare Breast & Pelvic exam until June 2025. Please advise. Thank you She has an active order from her PCP. She can call to schedule. Thanks, - FE Warren 08/07/24 11:35 AM Advised Patient mammogram was ordered by Dr. Acuña. [facility] documented in this encounter [facility] 08-07-2024 Telephone encounter Note Patient is requesting mammogram order. Patient not due for Medicare Breast & Pelvic exam until June 2025. Please advise. [facility] you [facility]-07-2024 Telephone encounter Note She has an active order from her PCP. She can call to schedule. Thanks, - FE Warren 08/07/24 11:35 AM [facility] 08-07-2024 Telephone encounter Note Advised Patient mammogram was ordered by Dr. Acuña. Gave telephone number for [facility] Central Scheduling. [facility] 06-29-2024 History of Present illness Narrative Images [...] Examined Right arm Examined Patient wearing nail pitcairn islander, Denies dark streaks on toenails Left arm [...] on the face and arms. Reviewed hyperpigmentation / to Plaquenil. Patient is not bothered by appearance, instructed patient to discuss with the prescribing doctor if the hyperpigmentation becomes bothersome. Next Visit: 1 year skin exam documented in this encounter [facility] 09-22-2023 History of Present illness Narrative Images [...] develops any flares of symptoms I recommend [id number] anti-inflammatories and close follow up with our [...] Hector Garcia DPM documented in this encounter [facility] 09-17-2023 History of Present illness Narrative Physical [...] despite known spur. documented in this encounter [facility] 09-13-2023 History of Present illness Narrative Physical [...] well, continue POC. documented in this encounter [facility] 09-10-2023 History of Present illness Narrative Physical [...] well, continue POC. documented in this encounter [facility] Evaluation note Diagnosis Achilles tendinitis [...] of breast- Primary [facility] Diagnosis Arm weakness Other musculoskeletal symptoms referable to limbs Numbness Disturbance of skin sensation Arm pain, right Pain in soft tissues of limb Arm pain, left Pain in soft tissues of limb [facility] Diagnosis Arm weakness Other musculoskeletal symptoms referable to limbs Numbness Disturbance of skin sensation Arm pain, right Pain in soft tissues of limb Arm pain, left Pain in soft tissues of limb [facility] Diagnosis Bilateral carpal tunnel syndrome- Primary Carpal tunnel syndrome Numbness and tingling in right hand Disturbance of skin sensation documented in this encounter [facility]* Diagnosis Encounter for other preprocedural examination [facility] Diagnosis Gastroesophageal reflux disease, unspecified whether esophagitis present- Primary RUQ pain Abdominal pain, right upper quadrant [facility] Diagnosis Preop examination Unspecified pre-operative examination documented in this encounter [facility]* Diagnosis Acute post-operative pain- Primary documented in this encounter [facility]* Diagnosis S/P carpal tunnel release- Primary Other postprocedural status documented in this encounter [facility]* Diagnosis S/P carpal tunnel release- Primary Other postprocedural status documented [facility]ructionsNot on filedocumented in this encounterProReg[facility] SystemInstructionsNot on filedocumented in this encounterProRegency [facility] SystemInstructions* Attachments The following attachments cannot be sent through Care Everywhere. * Upper endoscopy (Lithuanian) documented in this encounterProReg[facility] SystemReason for visit Narrative* Other Medical (Routine) - Closed Specialty Diagnoses / Procedures Referred By Luis villatoro Referred To Contact Neurology Diagnoses Arm weakness Numbness Arm pain, right Arm pain, left Procedures EMG AND NERVE CONDUCTION STUDY Luis Phillips, SUPERVISOR DOCK [address] [place] [address] Phone: tel: fax: Deuce Loyola MD [address] [phone] Phone: tel: fax: Referral ID Status Reason Start Date Expiration Date V isits Requested Visits Authorized [id number] Closed Perform Procedure 09/14/2024 03/13/2025 1 1 [facility] Summary Purpose Family History No [...] section and content) DATE CREATED AUTHOR 01/27/2018 [facility] DATE CREATED AUTHOR AUTHOR'S ORGANIZ ATION 12/20/2022 [facility] [place] DATE CREATED AUTHOR AUTHOR'S ORGANIZ ATION 11/08/2024 [facility] DATE CREATED AUTHOR AUTHOR'S ORGANIZ ATION 12/27/2024 [facility] DATE CREATED AUTHOR AUTHOR'S ORGANIZ ATION 05/03/2025 [facility] DATE CREATED AUTHOR AUTHOR'S ORGANIZ ATION 05/17/2025 [facility] Care Teams (unrecognized sec tion and content) Logistics Administrator Relationship Specialty Start Date End Date Nagi Acuña MD [address] [place] [address] [id number] PCP - General Internal Medicine 01/12/23 Logistics Administrator Relationship Specialty Start Date End Date Nagi Acuña MD [address] [place] [address] [id number] PCP - General Internal Medicine 01/12/23 Logistics Administrator Relationship Specialty Start Date End Date Nagi Acuña MD [address] [place] [address] [phone] PCP - General Internal Medicine 01/12/23 Logistics Administrator Relationship Specialty Start Date End Date Nagi Acuña MD [address] [place] [address] [id number] PCP - General Internal Medicine 01/12/23 Logistics Administrator Relationship Specialty Start Date End Date Nagi Acuña MD [address] [place] [address] [id number] PCP - General Internal Medicine 01/12/23 Logistics Administrator Relationship Specialty Start Date End Date Nagi Acuña MD [address] [place] [address], [place] [address] PCP - General Internal Medicine 01/12/23 Logistics Administrator Relationship Specialty Start Date End Date Nagi Acuña MD [address] [place] [address], [place] [id number] PCP - General Internal Medicine 01/12/23 Logistics Administrator Relationship Specialty Start Date End Date Nagi Acuña Jr., DO [address] [place] [id number] PCP - General Internal Medicine 06/10/17 Logistics Administrator Relationship Specialty Start Date End Date Nagi Acuña MD [address] [place] [address], [place] [address] PCP - General Internal Medicine 01/12/23 Logistics Administrator Relationship Specialty Start Date End Date Nagi Acuña MD [address] [place] [address], [place] [address] PCP - General Internal Medicine 01/12/23 Logistics Administrator Relationship Specialty Start Date End Date Nagi Acuña MD [address] [place] [address], [place] [address] PCP - General Internal Medicine 01/12/23 Logistics Administrator Relationship Specialty Start Date End Date Nagi Acuña Jr., DO [address] [place] [address], [place] [address] PCP - General Internal Medicine 06/10/17 Logistics Administrator Relationship Specialty Start Date End Date Nagi Acuña Jr., [address] [place] [address], [place] [address] PCP - General Internal Medicine 11/2/17 Logistics Administrator Relationship Specialty Start Date End Date Nagi Acuña MD [address] [place] [address] PCP - General Internal Medicine 01/12/23 Reason for Visit (unrecogniz ed section and content) Specialty Diagnoses / Procedures Referred By Luis t Referred To Contact Physical Therapy Diagnoses Achilles tendinitis of left lower extremity Procedures [place] OFFICE/OUTPATIENT NEW HIGH MDM 60 MINUTES Hector Garcia, DPM [address] [place] [address] Elmer Esteban, PT [address] [place] [address] Referral ID Status Reason Start Date Expiration Date Visits Requested Visits Authorized [id number] Authorized Specialty Services Required 08/11/2023 02/07/2024 99 [...] BE BASED ON THE PRIMARY CLINICAL RECORDS. [employer] provides no warranty or guarantee of the accuracy or completeness of information in this document.
[2025-05-18 09:22] LABS: Glucose Urine UA NEGATIVE (NEGATIVE)
[2025-05-18 09:24] LABS: Hematocrit 39.1 % (36.0-48.0); Hemoglobin 12.5 g/dL (12.0-16.0); Immature Granulocytes Abs Auto 0.03 10^3/uL (0.00-0.03); Immature Granulocytes Pct Auto 0.4 % (0.0-0.5); Lymphocytes Absolute Auto 1.7 10^3/uL (1.2-3.8); Mean Corpuscular HGB Conc 32.0 g/dL (29.9-35.2); Mean Corpuscular Hemoglobin 28.0 pg (26.7-34.0); Mean Corpuscular Volume 87.7 fL (81.0-99.0); Platelet Count 411 10^3/uL (150-450); Red Blood Count 4.46 10^6/uL (4.20-5.40); White Blood Count 7.9 10^3/uL (4.0-11.0)
[2025-05-18 09:48] LABS: Alanine Aminotransferase 60 U/L (14-59); Albumin Globulin Ratio 0.8; Albumin Level 3.6 g/dL (3.4-5.0); Alkaline Phosphatase 137 U/L (46-116); Anion Gap 9.5; Aspartate Amino Transferase 32 U/L (15-37); Blood Urea Nitrogen 21.0 mg/dL (7.0-18.0); Calcium 9.0 mg/dL (8.5-10.1); Carbon Dioxide 26.8 mmol/L (21.0-32.0); Chloride 104 mmol/L (98-107); Estimated GFR (African America >60 (>=60 mL/min/1.73m^2); Estimated GFR (Non-African Ame >60 (>=60 mL/min/1.73m^2); Globulin 4.6 g/dL; Glucose 114 mg/dL (74-106); Potassium 4.3 mmol/L (3.5-5.1); Sodium 136 mmol/L (136-145); Total Protein 8.2 g/dL (6.4-8.2)
[2025-05-18 11:58] LABS: Cast Seen? NONE SEEN #/LPF (NONE SEEN); Crystals Seen? None Seen #/HPF (None Seen); Urine Culture Indicated NO
[2025-05-19 14:11] LABS: Anti-CCP Ab, IgG/IgA 12 units (0-19)
== END 2025-05-18 08:44 | disposition home or self-care (01) ==
LOC: LAB 08:44
PROVIDERS: PCP Internal Medicine; Visit Provider Nurse Practitioner Family
DX: M35.9 Systemic involvement of connective tissue, unspecified (principal); Z79.899 Other long term (current) drug therapy
CPT/HCPCS: 36415; 80053; 81001; 85025; 85652; 86140; 86160; 86162; 86200; 86431